=== PATIENT | male | born 1990 | race Caucasian/White ===

== ENCOUNTER 2019-07-19 11:53 | Inpatient (IN) | payer OTHER, SELFPAY ==
[2019-07-19] VITALS (8 sets, daily range): BP systolic 102–125; BP diastolic 71–90; PULSE 90–111; RESP 16–18; TEMP 36.2–36.9; O2SAT 96–100; BMI 27.2
--- NOTE | 2019-07-19 12:40 | DI.RAD.S_ITS ---
PROCEDURE: XR CHEST 2V INDICATIONS: dyspnea, abd pain, hx of pancreatitis TECHNIQUE: 2 views of the chest were acquired. COMPARISON: None. FINDINGS: Surgical changes and devices: None. Lungs and pleura: There is trace blunting of the posterior costophrenic angles. No pneumothorax is seen. No parenchymal focal infiltrates are seen. Mediastinum: Mediastinal contours are normal. Heart size is moderately enlarged. Bones and chest wall: No suspicious bony abnormalities. Soft tissues appear unremarkable. IMPRESSION: Moderate cardiomegaly. Trace blunting of the costophrenic angles is seen, which is attributed to trace pleural effusions. Dictated by: Orlando Dale M.D. on 07/19/2019 at 12:00 Approved by: Orlando Dale M.D. on 07/19/2019 at 12:01
[2019-07-19 12:47] LABS: Add Manual Diff / Slide Review NO; Basophils Absolute Auto 0 /uL (0-100); Basophils Percent Auto 0.4 % (0-2); Eosinophils Absolute Auto 200 /uL (0-450); Eosinophils Percent Auto 2.4 % (2-4); Hematocrit 45.8 % (41-53); Hemoglobin 15.4 g/dL (13.5-17.5); Lymphocytes Absolute Auto 1800 /uL (1100-4500); Lymphocytes Percent Auto 20.6 % (25-40); Mean Corpuscular HGB Conc 33.6 % (30-36); Mean Corpuscular Hemoglobin 30.1 PG (26-34); Mean Corpuscular Volume 89.6 fL (80-100); Monocytes Absolute Auto 500 /uL (0-900); Monocytes Percent Auto 5.3 % (3-14); Neutrophils Absolute Auto 6400 /uL (1500-7000); Neutrophils Percent Auto 71.3 % (50-75); Platelet Count 325 X10^3/uL (150-400); Red Blood Cell Count 5.11 X10^6/uL (4.5-5.9); White Blood Cell Count 8.9 X10^3/uL (4.5-11.0)
[2019-07-19 12:52] LABS: Creatine Kinase 99 U/L (55-170)
[2019-07-19] MEDS: SODIUM CHLORIDE 0.9% 1,000 ML 150 ML IV (12:52)
[2019-07-19 12:53] LABS: Alanine Aminotransferase 412 IU/L (<50); Albumin 3.4 g/dL (3.5-5.0); Albumin Globulin Ratio 1.1 (1.0-2.8); Alkaline Phosphatase 87 U/L (38-126); Aspartate Aminotransferase 133 IU/L (17-59); BUN Creatinine Ratio 19.8 (6-22); Blood Urea Nitrogen 21 mg/dL (9-20); Calcium 8.6 mg/dL (8.4-10.2); Carbon Dioxide 22 mmol/L (22-32); Chloride 104 mmol/L (98-107); Estimated Glomerular Filt Rate > 60.0 mL/min (>60); Globulin 3.1 g/dL (1.7-4.1); Glucose 128 mg/dL (70-100); HEMOLYSIS 15 (0-50); Lipase 334 U/L (23-300); Potassium 4.1 mmol/L (3.4-5.1); Sodium 136 mmol/L (137-145); Total Protein 6.5 g/dL (6.3-8.2)
[2019-07-19 13:02] LABS: NT-proBNP (BNP-Adult 18+) 10900 pg/mL (<125)
[2019-07-19 13:05] LABS: Troponin I < 0.012 ng/mL (0.01-0.034)
--- NOTE | 2019-07-19 13:38 | DI.CT.S_ITS ---
PROCEDURE: CT ABDOMEN PELVIS W CON INDICATIONS: abd pain, dx of pancreatitis 2 wks ago, pain not resolved TECHNIQUE: After the administration of intravenous contrast, 5 mm thick sections acquired from the diaphragm to the symphysis. 5 mm coronal and sagittal reformats were acquired. For radiation dose reduction, the following was used: automated exposure control, adjustment of mA and/or kV according to patient size. COMPARISON: None. FINDINGS: Image quality: Excellent. ABDOMEN: Lung bases: Groundglass opacity with rounded contours and periphery of the left lung base. Heart is enlarged with left ventricular dilatation. Solid organs: Liver has nodular margins suggesting hepatic cirrhosis.. Gallbladder is contracted. Pericholecystic fluid noted. Biliary system is non dilated. Pancreas enhances normally. Spleen is normal in size and enhancement. No adrenal nodules. Kidneys demonstrate normal size and enhancement, without hydronephrosis. Right renal cyst noted. Peritoneum and bowel: Bowel loops demonstrate normal wall thickness and caliber. Scattered colonic diverticuli without evidence of diverticulitis. Moderate amount of scattered free fluid noted in the abdomen and pelvis. No free air. The appendix is normal. Nodes and vessels: No retroperitoneal or mesenteric adenopathy by size criteria. Aorta and inferior vena cava are normal in size. Miscellaneous: No ventral hernias. PELVIS: Genitourinary: Bladder wall thickness is normal. Miscellaneous: No inguinal adenopathy. Small bilateral fat containing or hernias. Bones: No suspicious bony lesions. No vertebral body compression fractures. IMPRESSION: 1. Liver is nodular margins suggesting hepatic cirrhosis. Please correlate with clinical laboratory data. 2. Pancreas enhances normally. 3. Moderate amount of ascites in the abdomen or pelvis. 4. Cardiomegaly with left ventricular dilatation. 5. Groundglass opacity with rounded contour in the periphery of the right lung base concerning for atypical pneumonia including COVID-19 pneumonia. Dictated by: Maribeth Petersen MD, PhD on 07/19/2019 at 14:51 Approved by: Maribeth Petersen MD, PhD on 07/19/2019 at 14:56
--- NOTE | 2019-07-19 14:40 | ED_ITS ---
HPI - Abdominal Pain <RASHAD Vincent - Last Filed: 07/19/19 18:06> General Chief Complaint: Abdominal Pain Stated Complaint: Pancreatitis x2 weeks Time Seen by Provider: 07/19/19 12:09 Source: patient Mode of arrival: Ambulatory Limitations: no limitations History of Present Illness HPI narrative: This is a 29-year-old male, smoker, who presents to ED with his mother with chief complain of upper mid abdominal discomfort and nausea for last couple of weeks. Patient reports pain is worse when he takes deep breaths. Patient was evaluated at [facility] on 07/01/19 and was diagnosed with pancreatitis and discharged to home with Percocet and clear liquid diet and advised to stop drinking alcohol. Patient has been taking total Percocet 3 tabs in 24 hour period and last dose was taken on this past Saturday. Patient reports onset of abdominal pain 2 weeks ago and reports has been drinking heavily with average 12 packs of beer and water and 1/2 bottle of 5th every other week for last 2-3 years. Patient states he has stopped drinking about 2 weeks ago. Patient also has history of hypertension and was taking amlodipine which he has stopped in March. States he was not aware that he supposed to continue with this medication. Patient reports recently he noticed swelling his ankle and feet bilaterally. Patient denies chest pain but reports dyspnea during exertion and at rest as well. Patient reports productive cough for last 2 weeks with a white and brown mucus. Patient denies possible exposure to Covid 19 virus. Patient was advised to follow up with international project manager and echocardiogram which he has not done yet. Patient reports he has to take deep breaths to catch breaths and feels better after 20-30 seconds. Patient has been vomiting about 2 to 3 times a day with nausea. Also reports diarrhea without blood. Patient reports chills but denies fever. Patient denies cough and has been off work and has stayed home last 2 weeks. Otherwise patient denies chronic medical problems. Related Data Home Medications Medication Instructions Recorded Confirmed No Known Home Medications 07/21/19 07/21/19 Allergies Allergy/AdvReac Type Severity Reaction Status Date / Time No Known Drug Allergies Allergy Verified 07/19/19 12:36 Review of Systems <RASHAD Vincent - Last Filed: 07/19/19 18:06> Review of Systems Narrative: General: Denies fever, (+) chills, fatigue, malaise, sweats. HEENT: Denies sinus pain, ear pain, sore throat, difficulty swallowing, dizziness. Respiratory: Denies (+) dyspnea, cough, wheezing, hemoptysis, sputum. Cardiovascular: Denies chest pain, palpitations, orthopnea, (+) edema to bilateral lower extremities. Gastrointestinal: See HPI : Denies dysuria, frequency, incontinence, hematuria, urinary retention. Musculoskeletal: Denies weakness, joint pain or bony pain. Skin: Denies rash, skin lesions, or other. Neurologic: Denies weakness, headache, numbness, change in speech, confusion, seizures, incoordination. Psychiatric: No concerning psychosocial issues. 12-point review of systems is negative except for those stated above. Patient History <RASHAD Vincent - Last Filed: 07/19/19 18:06> Surgical History No pertinent past surgical history (Acute) Social History details: Currently going through divorce number of children: 3 household members: children lives independently: Yes caregiver/support person: No occupational status: employed current occupational exposures/hazards: No Smoking Status: Current every day smoker alcohol intake: former Smoking Status: Current every day smoker alcohol intake frequency: 3 or more drinks per day Substance Use Type: does not use Exam <RASHAD Vincent - Last Filed: 07/19/19 18:06> Narrative Exam Narrative: GEN: Alert, oriented x 3, well appearing and nourished, and in no acute distress. Head: Normal cephalic, atraumatic. No scalp or temporal tenderness, palpable mass or rash. EYES: Pupils are equal, round, and reactive to light and accommodation. Extraocular muscles are intact bilaterally. There is no subconjunctival hemorrhage, exudate and sclera very mildly icteric. ENT: Hearing grossly intact. Nose without bleeding, purulent discharge or deviation. Facial sinuses nontender to palpate. Mucous membrane dry, no mucosal lesion. Throat without erythema, tonsillar hypertrophy or exudate. Uvula in midline, airway patent. Neck: Trachea in midline. No JVD, non-tender without lymphadenopathy. No masses or thyroid megaly. Supple, non-tender and no meningeal signs. CARDIAC: Normal regular rate and rhythm with murmurs. No gallops, or rubs. No chest wall tenderness. No peripheral edema, cyanosis or pallor. Capillary refill is less than 2 seconds. RESPIRATORY: Lungs are clear to auscultate bilaterally. No cough, wheezes, ral es, or rhonchi. No stridor, respiratory distress, increase work of breathing, or accessary muscle used. ABD: Abdomen soft, nontender to palpate and non-distended. No guarding or rebound tenderness to palpate. Bowel sounds are normal in all 4 quadrants. There is no palpable masses or organomegaly. EXT: Full painless ROM of all extremities with no loss of sensation, strength, effusion or edema. SKIN: Warm, dry, normal color for patient. No erythema, lesions or rash over visible areas. BACK: Nontender without deformity or crepitance. No flank tenderness. NEUROLOGICAL: Alert and oriented to place, time and person. Sensation and motor function intact bilaterally. No facial droops, dysphasia. PSYCHIATRIC: Good judgement and reason, without hallucinations, abnormal affect or abnormal behaviors during the examination. Patient is not suicidal. Initial Vital Signs Initial Vital Signs: Vital Signs Temperature 98.5 F 07/19/19 11:55 Pulse Rate 97 H 07/19/19 11:55 Respiratory Rate 16 07/19/19 11:55 Blood Pressure 125/90 07/19/19 11:55 Pulse Oximetry 100 07/19/19 11:55 <Luis Reddy MD - Last Filed: 07/22/19 07:46> Initial Vital Signs Initial Vital Signs: Vital Signs Temperature 98.5 F 07/19/19 11:55 Pulse Rate 97 H 07/19/19 11:55 Respiratory Rate 16 07/19/19 11:55 Blood Pressure 125/90 07/19/19 11:55 Pulse Oximetry 100 07/19/19 11:55 Scores <RASHAD Vincent - Last Filed: 07/19/19 18:06> GCS Belcher coma scale eye opening: Spontaneous Belcher coma scale verbal response: Orientated Estevan coma scale motor response: Obey commands Estevan coma scale total score: 15 Course <RASHAD Vincent - Last Filed: 07/19/19 18:06> Orders Ordered: Acetaminophen (Tylenol) 650 mg PO Q6HR PRN PRN Reason: Fever/Mild Pain (1-3) Digoxin (Lanoxin) 0.125 mg PO DAILY@1700 [facility] Digoxin (Lanoxin) 0.25 mg PO Q6HR [facility] Stop: 07/24/19 17:00 Last Admin: 07/22/19 05:43 Dose: 0.25 mg Documented by: Admin: 07/22/19 00:38 Dose: 0.25 mg Documented by: Admin: 07/21/19 17:43 Dose: Not Given Documented by: Admin: 07/21/19 17:28 Dose: Not Given Documented by: FARHAN Docusate Sodium (Colace) 200 mg PO BID [facility] Last Admin: 07/21/19 20:33 Dose: 200 mg Documented by: Admin: 07/21/19 13:37 Dose: 200 mg Documented by: MAGALYS Enoxaparin Sodium (Lovenox) 40 mg SUBCUT DAILY [facility] Last Admin: 07/21/19 08:34 Dose: 40 mg Documented by: Admin: 07/20/19 09:10 Dose: 40 mg Documented by: MAGALYS Furosemide (Lasix) 60 mg IV Q12H [facility] Last Admin: 07/22/19 05:43 Dose: 60 mg Documented by: Admin: 07/21/19 16:43 Dose: 60 mg Documented by: FARHAN Lisinopril (Zestril) 2.5 mg PO DAILY [facility] Last Admin: 07/21/19 08:33 Dose: 2.5 mg Documented by: Admin: 07/20/19 13:02 Dose: 2.5 mg Documented by: MAGALYS Morphine Sulfate (Morphine) 2 mg IV Q4HR PRN PRN Reason: Pain, Severe (7-10) Last Admin: 07/20/19 06:16 Dose: 2 mg Documented by: Admin: 07/20/19 00:00 Dose: 2 mg Documented by: FEI Naloxone HCl (Narcan) 0.2 mg IV Q2MIN PRN PRN Reason: Opiate Reversal Ondansetron HCl (Zofran) 4 mg IV Q8HR PRN PRN Reason: Nausea And Vomiting Last Admin: 07/20/19 16:50 Dose: 4 mg Documented by: FARHAN Oxycodone HCl (Percolone) 5 mg PO Q4HR PRN PRN Reason: Pain, Moderate (4-6) Last Admin: 07/22/19 05:44 Dose: 5 mg Documented by: Admin: 07/21/19 20:33 Dose: 5 mg Documented by: Admin: 07/21/19 16:42 Dose: 5 mg Documented by: Admin: 07/21/19 11:59 Dose: 5 mg Documented by: Admin: 07/21/19 06:43 Dose: 5 mg Documented by: Admin: 07/21/19 00:50 Dose: 5 mg Documented by: Admin: 07/20/19 20:35 Dose: 5 mg Documented by: Admin: 07/20/19 16:50 Dose: 5 mg Documented by: Admin: 07/20/19 12:18 Dose: 5 mg Documented by: Admin: 07/20/19 09:15 Dose: 5 mg Documented by: MAGALYS Spironolactone (Aldactone) 12.5 mg PO DAILY [facility] Discontinued Medications Digoxin (Lanoxin) 0.25 mg PO DAILY@1700 [facility] Stop: 07/24/19 17:00 Last Admin: 07/21/19 16:41 Dose: 0.25 mg Documented by: FARHAN Furosemide (Lasix) 40 mg IV NOW ONE Stop: 07/19/19 17:10 Last Admin: 07/19/19 17:33 Dose: 40 mg Documented by: CHARLOTTE Furosemide (Lasix) 40 mg PO DAILY [facility] Last Admin: 07/20/19 09:10 Dose: 40 mg Documented by: MAGALYS Furosemide (Lasix) 40 mg IV Q12HR [facility] Furosemide (Lasix) 40 mg IV NOW ONE Stop: 07/20/19 12:25 Last Admin: 07/20/19 13:03 Dose: 40 mg Documented by: MAGALYS Furosemide (Lasix) 40 mg IV 0900,2100 [facility] Last Admin: 07/21/19 09:30 Dose: 40 mg Documented by: MAGALYS Furosemide (Lasix) 20 mg IV NOW ONE Stop: 07/21/19 13:12 Last Admin: 07/21/19 13:37 Dose: 20 mg Documented by: MAGALYS Furosemide (Lasix) 60 mg IV Q8H [facility] Last Admin: 07/21/19 13:34 Dose: Not Given Documented by: MAGALYS Sodium Chloride (Normal Saline 0.9%) 1,000 mls @ 150 mls/hr IV CONT [facility] Last Infusion: 07/19/19 18:34 Dose: 0 mls/hr Documented by: MARIA TERESA Infusion: 07/19/19 15:43 Dose: 150 mls/hr Documented by: Admin: 07/19/19 12:52 Dose: 150 mls/hr Documented by: MICHELLE Sodium Chloride (Normal Saline 0.9%) 1,000 mls @ 100 mls/hr IV CONT [facility] Last Admin: 07/19/19 15:43 Dose: Not Given Documented by: CHARLOTTE Morphine Sulfate (Morphine) 4 mg IV Q4HR PRN PRN Reason: Pain, Severe (7-10) Last Admin: 07/19/19 19:45 Dose: 1 mg Documented by: MARIA TERESA Morphine Sulfate (Morphine) 1 mg IV Q4HR PRN PRN Reason: Pain, Moderate (4-6) Ondansetron HCl (Zofran) 4 mg IV NOW ONE Stop: 07/19/19 12:41 Last Admin: 07/19/19 12:58 Dose: Not Given Documented by: MICHELLE Spironolactone (Aldactone) 50 mg PO DAILY [facility] Last Admin: 07/20/19 09:13 Dose: 50 mg Documented by: MAGALYS Vital Signs Vital signs: Vital Signs - 8 hr 07/19/19 11:55 07/19/19 13:55 07/19/19 15:43 Temperature 98.5 F Pulse Rate 97 H 111 H 96 H Respiratory Rate 16 18 18 Blood Pressure 125/90 Blood Pressure [Right Arm] 111/82 Pulse Oximetry 100 96 97 <Luis Reddy MD - Last Filed: 07/22/19 07:46> Orders Ordered: Acetaminophen (Tylenol) 650 mg PO Q6HR PRN PRN Reason: Fever/Mild Pain (1-3) Digoxin (Lanoxin) 0.125 mg PO DAILY@1700 [facility] Digoxin (Lanoxin) 0.25 mg PO Q6HR [facility] Stop: 07/24/19 17:00 Last Admin: 07/22/19 05:43 Dose: 0.25 mg Documented by: Admin: 07/22/19 00:38 Dose: 0.25 mg Documented by: Admin: 07/21/19 17:43 Dose: Not Given Documented by: Admin: 07/21/19 17:28 Dose: Not Given Documented by: FARHAN Docusate Sodium (Colace) 200 mg PO BID [facility] Last Admin: 07/21/19 20:33 Dose: 200 mg Documented by: Admin: 07/21/19 13:37 Dose: 200 mg Documented by: MAGALYS Enoxaparin Sodium (Lovenox) 40 mg SUBCUT DAILY [facility] Last Admin: 07/21/19 08:34 Dose: 40 mg Documented by: Admin: 07/20/19 09:10 Dose: 40 mg Documented by: MAGALYS Furosemide (Lasix) 60 mg IV Q12H [facility] Last Admin: 07/22/19 05:43 Dose: 60 mg Documented by: Admin: 07/21/19 16:43 Dose: 60 mg Documented by: FARHAN Lisinopril (Zestril) 2.5 mg PO DAILY [facility] Last Admin: 07/21/19 08:33 Dose: 2.5 mg Documented by: Admin: 07/20/19 13:02 Dose: 2.5 mg Documented by: MAGALYS Morphine Sulfate (Morphine) 2 mg IV Q4HR PRN PRN Reason: Pain, Severe (7-10) Last Admin: 07/20/19 06:16 Dose: 2 mg Documented by: Admin: 07/20/19 00:00 Dose: 2 mg Documented by: FEI Naloxone HCl (Narcan) 0.2 mg IV Q2MIN PRN PRN Reason: Opiate Reversal Ondansetron HCl (Zofran) 4 mg IV Q8HR PRN PRN Reason: Nausea And Vomiting Last Admin: 07/20/19 16:50 Dose: 4 mg Documented by: FARHAN Oxycodone HCl (Percolone) 5 mg PO Q4HR PRN PRN Reason: Pain, Moderate (4-6) Last Admin: 07/22/19 05:44 Dose: 5 mg Documented by: Admin: 07/21/19 20:33 Dose: 5 mg Documented by: Admin: 07/21/19 16:42 Dose: 5 mg Documented by: Admin: 07/21/19 11:59 Dose: 5 mg Documented by: Admin: 07/21/19 06:43 Dose: 5 mg Documented by: Admin: 07/21/19 00:50 Dose: 5 mg Documented by: Admin: 07/20/19 20:35 Dose: 5 mg Documented by: Admin: 07/20/19 16:50 Dose: 5 mg Documented by: Admin: 07/20/19 12:18 Dose: 5 mg Documented by: Admin: 07/20/19 09:15 Dose: 5 mg Documented by: MAGALYS Spironolactone (Aldactone) 12.5 mg PO DAILY [facility] Discontinued Medications Digoxin (Lanoxin) 0.25 mg PO DAILY@1700 [facility] Stop: 07/24/19 17:00 Last Admin: 07/21/19 16:41 Dose: 0.25 mg Documented by: FARHAN Furosemide (Lasix) 40 mg IV NOW ONE Stop: 07/19/19 17:10 Last Admin: 07/19/19 17:33 Dose: 40 mg Documented by: CHARLOTTE Furosemide (Lasix) 40 mg PO DAILY [facility] Last Admin: 07/20/19 09:10 Dose: 40 mg Documented by: MAGALYS Furosemide (Lasix) 40 mg IV Q12HR [facility] Furosemide (Lasix) 40 mg IV NOW ONE Stop: 07/20/19 12:25 Last Admin: 07/20/19 13:03 Dose: 40 mg Documented by: MAGALYS Furosemide (Lasix) 40 mg IV 0900,2100 [facility] Last Admin: 07/21/19 09:30 Dose: 40 mg Documented by: MAGALYS Furosemide (Lasix) 20 mg IV NOW ONE Stop: 07/21/19 13:12 Last Admin: 07/21/19 13:37 Dose: 20 mg Documented by: MAGALYS Furosemide (Lasix) 60 mg IV Q8H [facility] Last Admin: 07/21/19 13:34 Dose: Not Given Documented by: MAGALYS Sodium Chloride (Normal Saline 0.9%) 1,000 mls @ 150 mls/hr IV CONT [facility] Last Infusion: 07/19/19 18:34 Dose: 0 mls/hr Documented by: MARIA TERESA Infusion: 07/19/19 15:43 Dose: 150 mls/hr Documented by: Admin: 07/19/19 12:52 Dose: 150 mls/hr Documented by: MICHELLE Sodium Chloride (Normal Saline 0.9%) 1,000 mls @ 100 mls/hr IV CONT [facility] Last Admin: 07/19/19 15:43 Dose: Not Given Documented by: CHARLOTTE Morphine Sulfate (Morphine) 4 mg IV Q4HR PRN PRN Reason: Pain, Severe (7-10) Last Admin: 07/19/19 19:45 Dose: 1 mg Documented by: MARIA TERESA Morphine Sulfate (Morphine) 1 mg IV Q4HR PRN PRN Reason: Pain, Moderate (4-6) Ondansetron HCl (Zofran) 4 mg IV NOW ONE Stop: 07/19/19 12:41 Last Admin: 07/19/19 12:58 Dose: Not Given Documented by: MICHELLE Spironolactone (Aldactone) 50 mg PO DAILY [facility] Last Admin: 07/20/19 09:13 Dose: 50 mg Documented by: YROSMERY Vital Signs Vital signs: Vital Signs - 8 hr 07/19/19 11:55 07/19/19 13:55 07/19/19 15:43 Temperature 98.5 F Pulse Rate 97 H 111 H 96 H Respiratory Rate 16 18 18 Blood Pressure 125/90 Blood Pressure [Right Arm] 111/82 Pulse Oximetry 100 96 97 MDM - Abdominal Pain <RASHAD Vincent - Last Filed: 07/19/19 18:06> Differential Diagnosis Differential diagnosis: Likely abdominal pain, pancreatitis and other (acute liver failure, pneumonia, CHF, cardiomegaly) Medical Records Attestation: I reviewed the patient's medical records. Lab Data Attestation: I reviewed the patient's lab results. Result diagrams: 07/22/19 05:10 07/22/19 05:10 Labs: Lab Results 07/19/19 07/19/19 07/19/19 Range/Units 12:30 12:30 12:30 WBC 8.9 (4.5-11.0) X10^3/uL RBC 5.11 (4.5-5.9) X10^6/uL Hgb 15.4 (13.5-17.5) g/dL Hct 45.8 (41-53) % MCV 89.6 (80-100) fL MCH 30.1 (26-34) PG MCHC 33.6 (30-36) % RDW 15.0 H (11.6-14.8) % Plt Count 325 (150-400) X10^3/uL Neut % (Auto) 71.3 (50-75) % Lymph % (Auto) 20.6 L (25-40) % Potter % (Auto) 5.3 (3-14) % Eos % (Auto) 2.4 (2-4) % Baso % (Auto) 0.4 (0-2) % Neut # (Auto) 6400 (8693-1170) /uL Lymph # (Auto) 1800 (5506-1015) /uL Potter # (Auto) 500 (0-900) /uL Eos # (Auto) 200 (0-450) /uL Baso # (Auto) 0 (0-100) /uL ESR (0-15) MM/HR PT (10.1-12.7) SECONDS INR (0.9-1.3) APTT (26.4-36.2) SECONDS D-Dimer (<230) ng/mL Sodium 136 L (137-145) mmol/L Potassium 4.1 (3.4-5.1) mmol/L Chloride 104 (98-107) mmol/L Carbon Dioxide 22 (22-32) mmol/L BUN 21 H (9-20) mg/dL Creatinine 1.06 (0.66-1.25) mg/dL Estimated GFR > 60.0 (>60) mL/min BUN/Creatinine Ratio 19.8 (6-22) Glucose 128 H (70-100) mg/dL Lactate (0.7-2.1) mmol/L Calcium 8.6 (8.4-10.2) mg/dL Ferritin (18-464) ng/mL Total Bilirubin 3.0 H (0.2-1.3) mg/dL AST 133 H (17-59) IU/L ALT 412 H (<50) IU/L Alkaline Phosphatase 87 (38-126) U/L Lactate Dehydrogenase (313-618) U/L Total Creatine Kinase 99 (55-170) U/L CK-MB (CK-2) TNP CK-MB (CK-2) Rel Index TNP Troponin I < 0.012 (0.01-0.034) ng/mL C-Reactive Protein (<1.0) mg/dL NT-Pro-B Natriuret Pep (<125) pg/mL Total Protein 6.5 (6.3-8.2) g/dL Albumin 3.4 L (3.5-5.0) g/dL Globulin 3.1 (1.7-4.1) g/dL Albumin/Globulin Ratio 1.1 (1.0-2.8) Lipase 334 H (23-300) U/L Procalcitonin (<0.5) ng/mL Acetaminophen (10-30) ug/mL COVID-19 PCR (Not Detect) Hepatitis A IgM Ab (Negative) Hep Bs Antigen (Negative) Hep B Core IgM Ab (Negative) Hepatitis C Antibody (0.0-0.9) s/co ratio Hep C Ab Signal/Cutoff (.) 07/19/19 07/19/19 07/19/19 Range/Units 12:30 12:30 15:35 WBC (4.5-11.0) X10^3/uL RBC (4.5-5.9) X10^6/uL Hgb (13.5-17.5) g/dL Hct (41-53) % MCV (80-100) fL MCH (26-34) PG MCHC (30-36) % RDW (11.6-14.8) % Plt Count (150-400) X10^3/uL Neut % (Auto) (50-75) % Lymph % (Auto) (25-40) % Potter % (Auto) (3-14) % Eos % (Auto) (2-4) % Baso % (Auto) (0-2) % Neut # (Auto) (7786-7363) /uL Lymph # (Auto) (1761-0769) /uL Potter # (Auto) (0-900) /uL Eos # (Auto) (0-450) /uL Baso # (Auto) (0-100) /uL ESR 2 (0-15) MM/HR PT (10.1-12.7) SECONDS INR (0.9-1.3) APTT (26.4-36.2) SECONDS D-Dimer (<230) ng/mL Sodium (137-145) mmol/L Potassium (3.4-5.1) mmol/L Chloride (98-107) mmol/L Carbon Dioxide (22-32) mmol/L BUN (9-20) mg/dL Creatinine (0.66-1.25) mg/dL Estimated GFR (>60) mL/min BUN/Creatinine Ratio (6-22) Glucose (70-100) mg/dL Lactate (0.7-2.1) mmol/L Calcium (8.4-10.2) mg/dL Ferritin (18-464) ng/mL Total Bilirubin (0.2-1.3) mg/dL AST (17-59) IU/L ALT (<50) IU/L Alkaline Phosphatase (38-126) U/L Lactate Dehydrogenase (313-618) U/L Total Creatine Kinase (55-170) U/L CK-MB (CK-2) CK-MB (CK-2) Rel Index Troponin I (0.01-0.034) ng/mL C-Reactive Protein (<1.0) mg/dL NT-Pro-B Natriuret Pep 45458 H (<125) pg/mL Total Protein (6.3-8.2) g/dL Albumin (3.5-5.0) g/dL Globulin (1.7-4.1) g/dL Albumin/Globulin Ratio (1.0-2.8) Lipase (23-300) U/L Procalcitonin (<0.5) ng/mL Acetaminophen (10-30) ug/mL COVID-19 PCR (Not Detect) Hepatitis A IgM Ab Negative (Negative) Hep Bs Antigen Negative (Negative) Hep B Core IgM Ab Negative (Negative) Hepatitis C Antibody <0.1 (0.0-0.9) s/co ratio Hep C Ab Signal/Cutoff Comment (.) 07/19/19 07/19/19 07/19/19 Range/Units 15:35 15:35 15:35 WBC (4.5-11.0) X10^3/uL RBC (4.5-5.9) X10^6/uL Hgb (13.5-17.5) g/dL Hct (41-53) % MCV (80-100) fL MCH (26-34) PG MCHC (30-36) % RDW (11.6-14.8) % Plt Count (150-400) X10^3/uL Neut % (Auto) (50-75) % Lymph % (Auto) (25-40) % Potter % (Auto) (3-14) % Eos % (Auto) (2-4) % Baso % (Auto) (0-2) % Neut # (Auto) (1911-5675) /uL Lymph # (Auto) (1205-9251) /uL Potter # (Auto) (0-900) /uL Eos # (Auto) (0-450) /uL Baso # (Auto) (0-100) /uL ESR (0-15) MM/HR PT 17.1 H (10.1-12.7) SECONDS INR 1.5 H (0.9-1.3) APTT 30 (26.4-36.2) SECONDS D-Dimer 807 H (<230) ng/mL Sodium (137-145) mmol/L Potassium (3.4-5.1) mmol/L Chloride (98-107) mmol/L Carbon Dioxide (22-32) mmol/L BUN (9-20) mg/dL Creatinine (0.66-1.25) mg/dL Estimated GFR (>60) mL/min BUN/Creatinine Ratio (6-22) Glucose (70-100) mg/dL Lactate 1.3 (0.7-2.1) mmol/L Calcium (8.4-10.2) mg/dL Ferritin (18-464) ng/mL Total Bilirubin (0.2-1.3) mg/dL AST (17-59) IU/L ALT (<50) IU/L Alkaline Phosphatase (38-126) U/L Lactate Dehydrogenase (313-618) U/L Total Creatine Kinase (55-170) U/L CK-MB (CK-2) CK-MB (CK-2) Rel Index Troponin I (0.01-0.034) ng/mL C-Reactive Protein (<1.0) mg/dL NT-Pro-B Natriuret Pep (<125) pg/mL Total Protein (6.3-8.2) g/dL Albumin (3.5-5.0) g/dL Globulin (1.7-4.1) g/dL Albumin/Globulin Ratio (1.0-2.8) Lipase (23-300) U/L Procalcitonin 0.19 (<0.5) ng/mL Acetaminophen (10-30) ug/mL COVID-19 PCR (Not Detect) Hepatitis A IgM Ab (Negative) Hep Bs Antigen (Negative) Hep B Core IgM Ab (Negative) Hepatitis C Antibody (0.0-0.9) s/co ratio Hep C Ab Signal/Cutoff (.) 07/19/19 07/19/19 07/19/19 Range/Units 15:35 15:35 15:35 WBC (4.5-11.0) X10^3/uL RBC (4.5-5.9) X10^6/uL Hgb (13.5-17.5) g/dL Hct (41-53) % MCV (80-100) fL MCH (26-34) PG MCHC (30-36) % RDW (11.6-14.8) % Plt Count (150-400) X10^3/uL Neut % (Auto) (50-75) % Lymph % (Auto) (25-40) % Potter % (Auto) (3-14) % Eos % (Auto) (2-4) % Baso % (Auto) (0-2) % Neut # (Auto) (3198-0974) /uL Lymph # (Auto) (4248-8055) /uL Potter # (Auto) (0-900) /uL Eos # (Auto) (0-450) /uL Baso # (Auto) (0-100) /uL ESR (0-15) MM/HR PT (10.1-12.7) SECONDS INR (0.9-1.3) APTT (26.4-36.2) SECONDS D-Dimer (<230) ng/mL Sodium (137-145) mmol/L Potassium (3.4-5.1) mmol/L Chloride (98-107) mmol/L Carbon Dioxide (22-32) mmol/L BUN (9-20) mg/dL Creatinine (0.66-1.25) mg/dL Estimated GFR (>60) mL/min BUN/Creatinine Ratio (6-22) Glucose (70-100) mg/dL Lactate (0.7-2.1) mmol/L Calcium (8.4-10.2) mg/dL Ferritin 93 (18-464) ng/mL Total Bilirubin (0.2-1.3) mg/dL AST (17-59) IU/L ALT (<50) IU/L Alkaline Phosphatase (38-126) U/L Lactate Dehydrogenase 633 H (313-618) U/L Total Creatine Kinase (55-170) U/L CK-MB (CK-2) CK-MB (CK-2) Rel Index Troponin I (0.01-0.034) ng/mL C-Reactive Protein 4.9 H (<1.0) mg/dL NT-Pro-B Natriuret Pep (<125) pg/mL Total Protein (6.3-8.2) g/dL Albumin (3.5-5.0) g/dL Globulin (1.7-4.1) g/dL Albumin/Globulin Ratio (1.0-2.8) Lipase (23-300) U/L Procalcitonin (<0.5) ng/mL Acetaminophen < 10 L (10-30) ug/mL COVID-19 PCR Not detected (Not Detect) Hepatitis A IgM Ab (Negative) Hep Bs Antigen (Negative) Hep B Core IgM Ab (Negative) Hepatitis C Antibody (0.0-0.9) s/co ratio Hep C Ab Signal/Cutoff (.) Imaging Data Chest x-ray: Radiologist's Impression: [address] [address] XRay Report Signed Patient: Kirk Cotton [facility]#: [id number] : 1990Acct:[id number] Age/Sex: te of Service: 07[birth year]19[birth year] Loc: ED Accession Number: [id number] Procedure: XR chest 2V Ordering Provider: Wali Daniel PROCEDURE: XR CHEST 2V INDICATIONS: dyspnea, abd pain, hx of pancreatitis TECHNIQUE: 2 views of the chest were acquired. COMPARISON: None. FINDINGS: Surgical changes and devices: None. Lungs and pleura: There is trace blunting of the posterior costophrenic angles. No pneumothorax is seen. No parenchymal focal infiltrates are seen. Mediastinum: Mediastinal contours are normal. Heart size is moderately enlarged. Bones and chest wall: No suspicious bony abnormalities. Soft tissues appear unremarkable. IMPRESSION: Moderate cardiomegaly. Trace blunting of the costophrenic angles is seen, which is attributed to trace pleural effusions. Dictated by: Orlando Dale M.D. on 07/19/2019 at 12:00 Approved by: Orlando Dale M.D. on 07/19/2019 at 12:01 CT scan - abdomen/pelvis: Radiologist's Impression: [address] [address] [address] Scan Report Signed Patient: Kirk Cotton [facility]#: [id number] : 1990Acct:[id number] Age/Sex: te of Service: 07/19/19 Loc: ED Accession Number: [id number] Procedure: CT abdomen pelvis w con Ordering Provider: Wali Daniel PROCEDURE: CT ABDOMEN PELVIS W CON INDICATIONS: abd pain, dx of pancreatitis 2 wks ago, pain not resolved TECHNIQUE: After the administration of intravenous contrast, 5 mm thick sections acquired from the diaphragm to the symphysis. 5 mm coronal and sagittal reformats were acquired. For radiation dose reduction, the following was used: automated exposure control, adjustment of mA and/or kV according to patient size. COMPARISON: None. FINDINGS: Image quality: Excellent. ABDOMEN: Lung bases: Groundglass opacity with rounded contours and periphery of the left lung base. Heart is enlarged with left ventricular dilatation. Solid organs: Liver has nodular margins suggesting hepatic cirrhosis.. Gallbladder is contracted. Pericholecystic fluid noted. Biliary system is non dilated. Pancr eas enhances normally. Spleen is normal in size and enhancement. No adrenal nodules. Kidneys demonstrate normal size and enhancement, without hydronephrosis. Right renal cyst noted. Peritoneum and bowel: Bowel loops demonstrate normal wall thickness and caliber. Scattered colonic diverticuli without evidence of diverticulitis. Moderate amount of scattered free fluid noted in the abdomen and pelvis. No free air. The appendix is normal. Nodes and vessels: No retroperitoneal or mesenteric adenopathy by size criteria. Aorta and inferior vena cava are normal in size. Miscellaneous: No ventral hernias. PELVIS: Genitourinary: Bladder wall thickness is normal. Miscellaneous: No inguinal adenopathy. Small bilateral fat containing or hernias. Bones: No suspicious bony lesions. No vertebral body compression fractures. IMPRESSION: 1. Liver is nodular margins suggesting hepatic cirrhosis. Please correlate with clinical laboratory data. 2. Pancreas enhances normally. 3. Moderate amount of ascites in the abdomen or pelvis. 4. Cardiomegaly with left ventricular dilatation. 5. Groundglass opacity with rounded contour in the periphery of the right lung base concerning for atypical pneumonia including COVID-19 pneumonia. Dictated by: Maribeth Petersen MD, PhD on 07/19/2019 at 14:51 Approved by: Maribeth Petersen MD, PhD on 07/19/2019 at 14:56 ECG Data Attestation: I personally reviewed and interpreted this ECG as follows: Prior ECG tracings: not available for review Interpretation: Sinus rhythm with left bundle branch block rate at 95. WI interval 175, QRS duration 207, QT/QTC 446/499 Q/S in V1 and V2, R in I/aVL, V5, V6. No acute ST changes Abnormal EKG MDM Narrative Medical decision making narrative: This is a 29-year-old male who presents to ED with his mother with chief complain of upper abdominal discomfort and nausea/vomiting for over 2 weeks. Patient was evaluated in [facility] 2 weeks ago and discharged to home with diagnosis of pancreatitis. Patient reports he has been drinking heavily last 2-3 years alternating weekly consisting 12 packs of beer with half bottle of 5th hard liquor. Patient denies drinking alcohol at least 2 weeks plus due to abdominal discomfort. He was also noted cardiomegaly at that time and was advised to follow up with echocardiogram which has not been done. Patient reports last several days he has been having increasing short of breath continuously even without exertion. Also, he reports swelling to his bilateral lower legs. Abdomen is mildly tender to palpate in up per abdomen. No active vomiting noted. EKG shows left bundle branch block rate in 95 and previous EKG is not available. Chest x-ray shows moderate cardiomegaly with trace pleural effusion. CT of abdomen and pelvis indicates ground-glass opacity with rounded control for in periphery of lung bases with enlarged left ventricular dilation and concerns for atypical pneumonia verses Covid 19 pneumonia. Liver shows nodular margins suggesting hepatic cirrhosis recommending correlate with clinical laboratory data. Gallbladder is contracted with nondilated biliary system. Pancreas was enhance normally. There is nadia cholecystic fluid with moderate amount of ascites. Old record from [facility] was obtained with normal white count, normal liver function test with mildly total bilirubin of 2.1 and mild dehydration of BUN of 22, creatinine of 1.4 and normal lipase test of 38. Today's lab test shows increased total bilirubin of 3.0 with AST of 133, ALT of 412, alkaline phosphatase of 87, albumin of 3.4 and lipase of 334. Patient had normal platelet level of 325 with INR of 1.5. No leukocytosis with WBC of 8.9. CRP was elevated to 4.9, ESR was normal of 2. Lactate and procalcitonin level was normal. Serum glucose was 128. Negative troponin test. ProBNP was 10,900. Tylenol level was negative. Hepatitis panel is pending. Napoles virus swab is pending. Due to patient's CT scan concerns for ground-glass opacity additional labs were added for LDH, D-dimer, ferritin, coagulation. D-dimers is elevated to 807, INR is 1.5, PT is 17.1. Normal ferritin level 93. Lymphocyte is mildly decreased to 20.6. Patient was administered 40 mg IV Lasix for cardiomegaly elevated proBNP. Prior this lab was available, patient received about 500 mL of normal saline infusion. Patient's O2 sat was greater than 97% in room air. Patient's lung sounds are clear to auscultate. Patient did not have pitting edema in lower extremities. Consulted Dr. Michele for admission and was suggested contact GI specialist for possible transfer. [place] [facility] specialist, Dr. Carrillo, suggested to consid er to transfer [facility] her they have marketing representative and liver transplant capability if it is needed. Spoke with at [facility], [facility], and recommended overnight admission for observation with IV hydration, repeat lab test including liver function test, coag test and patient is not require to be transferred at this time since he has not required for acute procedures. Dr. Balderas is not convinced patient has acute hepatic failure and his symptoms, lab tests are due to all related pancreatitis. Spoke with Dr. Michele again and he kindly accepted patient's care with the recommendation. He suggested patient's condition gets worse need further consult, feel free to contact [facility] tomorrow. New finding of cardiomegaly and elevated BNP may related alcohol related and further evaluation is required such as echocardiogram and a referral to international project manager. Patient has not been taking amlodipine since March 2019. Patient blood pressure is in normotensive in the ED. <Luis Reddy MD - Last Filed: 07/22/19 07:46> Lab Data Labs: Lab Results 07/19/19 07/19/19 07/19/19 Range/Units 12:30 12:30 12:30 WBC 8.9 (4.5-11.0) X10^3/uL RBC 5.11 (4.5-5.9) X10^6/uL Hgb 15.4 (13.5-17.5) g/dL Hct 45.8 (41-53) % MCV 89.6 (80-100) fL MCH 30.1 (26-34) PG MCHC 33.6 (30-36) % RDW 15.0 H (11.6-14.8) % Plt Count 325 (150-400) X10^3/uL Neut % (Auto) 71.3 (50-75) % Lymph % (Auto) 20.6 L (25-40) % Potter % (Auto) 5.3 (3-14) % Eos % (Auto) 2.4 (2-4) % Baso % (Auto) 0.4 (0-2) % Neut # (Auto) 6400 (1913-8391) /uL Lymph # (Auto) 1800 (6776-5666) /uL Potter # (Auto) 500 (0-900) /uL Eos # (Auto) 200 (0-450) /uL Baso # (Auto) 0 (0-100) /uL ESR (0-15) MM/HR PT (10.1-12.7) SECONDS INR (0.9-1.3) APTT (26.4-36.2) SECONDS D-Dimer (<230) ng/mL Sodium 136 L (137-145) mmol/L Potassium 4.1 (3.4-5.1) mmol/L Chloride 104 (98-107) mmol/L Carbon Dioxide 22 (22-32) mmol/L BUN 21 H (9-20) mg/dL Creatinine 1.06 (0.66-1.25) mg/dL Estimated GFR > 60.0 (>60) mL/min BUN/Creatinine Ratio 19.8 (6-22) Glucose 128 H (70-100) mg/dL Lactate (0.7-2.1) mmol/L Calcium 8.6 (8.4-10.2) mg/dL Ferritin (18-464) ng/mL Total Bilirubin 3.0 H (0.2-1.3) mg/dL AST 133 H (17-59) IU/L ALT 412 H (<50) IU/L Alkaline Phosphatase 87 (38-126) U/L Lactate Dehydrogenase (313-618) U/L Total Creatine Kinase 99 (55-170) U/L CK-MB (CK-2) TNP CK-MB (CK-2) Rel Index TNP Troponin I < 0.012 (0.01-0.034) ng/mL C-Reactive Protein (<1.0) mg/dL NT-Pro-B Natriuret Pep (<125) pg/mL Total Protein 6.5 (6.3-8.2) g/dL Albumin 3.4 L (3.5-5.0) g/dL Globulin 3.1 (1.7-4.1) g/dL Albumin/Globulin Ratio 1.1 (1.0-2.8) Lipase 334 H (23-300) U/L Procalcitonin (<0.5) ng/mL Acetaminophen (10-30) ug/mL COVID-19 PCR (Not Detect) Hepatitis A IgM Ab (Negative) Hep Bs Antigen (Negative) Hep B Core IgM Ab (Negative) Hepatitis C Antibody (0.0-0.9) s/co ratio Hep C Ab Signal/Cutoff (.) 07/19/19 07/19/19 07/19/19 Range/Units 12:30 12:30 15:35 WBC (4.5-11.0) X10^3/uL RBC (4.5-5.9) X10^6/uL Hgb (13.5-17.5) g/dL Hct (41-53) % MCV (80-100) fL MCH (26-34) PG MCHC (30-36) % RDW (11.6-14.8) % Plt Count (150-400) X10^3/uL Neut % (Auto) (50-75) % Lymph % (Auto) (25-40) % Potter % (Auto) (3-14) % Eos % (Auto) (2-4) % Baso % (Auto) (0-2) % Neut # (Auto) (7484-5592) /uL Lymph # (Auto) (4413-2969) /uL Potter # (Auto) (0-900) /uL Eos # (Auto) (0-450) /uL Baso # (Auto) (0-100) /uL ESR 2 (0-15) MM/HR PT (10.1-12.7) SECONDS INR (0.9-1.3) APTT (26.4-36.2) SECONDS D-Dimer (<230) ng/mL Sodium (137-145) mmol/L Potassium (3.4-5.1) mmol/L Chloride (98-107) mmol/L Carbon Dioxide (22-32) mmol/L BUN (9-20) mg/dL Creatinine (0.66-1.25) mg/dL Estimated GFR (>60) mL/min BUN/Creatinine Ratio (6-22) Glucose (70-100) mg/dL Lactate (0.7-2.1) mmol/L Calcium (8.4-10.2) mg/dL Ferritin (18-464) ng/mL Total Bilirubin (0.2-1.3) mg/dL AST (17-59) IU/L ALT (<50) IU/L Alkaline Phosphatase (38-126) U/L Lactate Dehydrogenase (313-618) U/L Total Creatine Kinase (55-170) U/L CK-MB (CK-2) CK-MB (CK-2) Rel Index Troponin I (0.01-0.034) ng/mL C-Reactive Protein (<1.0) mg/dL NT-Pro-B Natriuret Pep 89918 H (<125) pg/mL Total Protein (6.3-8.2) g/dL Albumin (3.5-5.0) g/dL Globulin (1.7-4.1) g/dL Albumin/Globulin Ratio (1.0-2.8) Lipase (23-300) U/L Procalcitonin (<0.5) ng/mL Acetaminophen (10-30) ug/mL COVID-19 PCR (Not Detect) Hepatitis A IgM Ab Negative (Negative) Hep Bs Antigen Negative (Negative) Hep B Core IgM Ab Negative (Negative) Hepatitis C Antibody <0.1 (0.0-0.9) s/co ratio Hep C Ab Signal/Cutoff Comment (.) 07/19/19 07/19/19 07/19/19 Range/Units 15:35 15:35 15:35 WBC (4.5-11.0) X10^3/uL RBC (4.5-5.9) X10^6/uL Hgb (13.5-17.5) g/dL Hct (41-53) % MCV (80-100) fL MCH (26-34) PG MCHC (30-36) % RDW (11.6-14.8) % Plt Count (150-400) X10^3/uL Neut % (Auto) (50-75) % Lymph % (Auto) (25-40) % Potter % (Auto) (3-14) % Eos % (Auto) (2-4) % Baso % (Auto) (0-2) % Neut # (Auto) (7082-4349) /uL Lymph # (Auto) (9536-1027) /uL Potter # (Auto) (0-900) /uL Eos # (Auto) (0-450) /uL Baso # (Auto) (0-100) /uL ESR (0-15) MM/HR PT 17.1 H (10.1-12.7) SECONDS INR 1.5 H (0.9-1.3) APTT 30 (26.4-36.2) SECONDS D-Dimer 807 H (<230) ng/mL Sodium (137-145) mmol/L Potassium (3.4-5.1) mmol/L Chloride (98-107) mmol/L Carbon Dioxide (22-32) mmol/L BUN (9-20) mg/dL Creatinine (0.66-1.25) mg/dL Estimated GFR (>60) mL/min BUN/Creatinine Ratio (6-22) Glucose (70-100) mg/dL Lactate 1.3 (0.7-2.1) mmol/L Calcium (8.4-10.2) mg/dL Ferritin (18-464) ng/mL Total Bilirubin (0.2-1.3) mg/dL AST (17-59) IU/L ALT (<50) IU/L Alkaline Phosphatase (38-126) U/L Lactate Dehydrogenase (313-618) U/L Total Creatine Kinase (55-170) U/L CK-MB (CK-2) CK-MB (CK-2) Rel Index Troponin I (0.01-0.034) ng/mL C-Reactive Protein (<1.0) mg/dL NT-Pro-B Natriuret Pep (<125) pg/mL Total Protein (6.3-8.2) g/dL Albumin (3.5-5.0) g/dL Globulin (1.7-4.1) g/dL Albumin/Globulin Ratio (1.0-2.8) Lipase (23-300) U/L Procalcitonin 0.19 (<0.5) ng/mL Acetaminophen (10-30) ug/mL COVID-19 PCR (Not Detect) Hepatitis A IgM Ab (Negative) Hep Bs Antigen (Negative) Hep B Core IgM Ab (Negative) Hepatitis C Antibody (0.0-0.9) s/co ratio Hep C Ab Signal/Cutoff (.) 07/19/19 07/19/19 07/19/19 Range/Units 15:35 15:35 15:35 WBC (4.5-11.0) X10^3/uL RBC (4.5-5.9) X10^6/uL Hgb (13.5-17.5) g/dL Hct (41-53) % MCV (80-100) fL MCH (26-34) PG MCHC (30-36) % RDW (11.6-14.8) % Plt Count (150-400) X10^3/uL Neut % (Auto) (50-75) % Lymph % (Auto) (25-40) % Potter % (Auto) (3-14) % Eos % (Auto) (2-4) % Baso % (Auto) (0-2) % Neut # (Auto) (2812-0169) /uL Lymph # (Auto) (1198-4680) /uL Potter # (Auto) (0-900) /uL Eos # (Auto) (0-450) /uL Baso # (Auto) (0-100) /uL ESR (0-15) MM/HR PT (10.1-12.7) SECONDS INR (0.9-1.3) APTT (26.4-36.2) SECONDS D-Dimer (<230) ng/mL Sodium (137-145) mmol/L Potassium (3.4-5.1) mmol/L Chloride (98-107) mmol/L Carbon Dioxide (22-32) mmol/L BUN (9-20) mg/dL Creatinine (0.66-1.25) mg/dL Estimated GFR (>60) mL/min BUN/Creatinine Ratio (6-22) Glucose (70-100) mg/dL Lactate (0.7-2.1) mmol/L Calcium (8.4-10.2) mg/dL Ferritin 93 (18-464) ng/mL Total Bilirubin (0.2-1.3) mg/dL AST (17-59) IU/L ALT (<50) IU/L Alkaline Phosphatase (38-126) U/L Lactate Dehydrogenase 633 H (313-618) U/L Total Creatine Kinase (55-170) U/L CK-MB (CK-2) CK-MB (CK-2) Rel Index Troponin I (0.01-0.034) ng/mL C-Reactive Protein 4.9 H (<1.0) mg/dL NT-Pro-B Natriuret Pep (<125) pg/mL Total Protein (6.3-8.2) g/dL Albumin (3.5-5.0) g/dL Globulin (1.7-4.1) g/dL Albumin/Globulin Ratio (1.0-2.8) Lipase (23-300) U/L Procalcitonin (<0.5) ng/mL Acetaminophen < 10 L (10-30) ug/mL COVID-19 PCR Not detected (Not Detect) Hepatitis A IgM Ab (Negative) Hep Bs Antigen (Negative) Hep B Core IgM Ab (Negative) Hepatitis C Antibody (0.0-0.9) s/co ratio Hep C Ab Signal/Cutoff (.) Discharge Plan Departure Patient Disposition: Admitted as Observation Clinical Impression: Cardiomegaly, Liver disease Pancreatitis Qualifiers: Chronicity: acute Pancreatitis type: alcohol induced Acute pancreatitis complication: unspecified Qualified Code(s): K85.20 - Alcohol induced acute pancreatitis without necrosis or infection Heart failure Qualifiers: Heart failure type: unspecified Heart failure chronicity: unspecified Qualified Code(s): I50.9 - Heart failure, unspecified Discharge Date/Time: 07/19/19 17:45 Admit Date/Time: 07/19/19 17:12 Admit Provider: Gene Michele
[2019-07-19 15:52] LABS: INR 1.5 (0.9-1.3); Prothrombin Time 17.1 SECONDS (10.1-12.7)
[2019-07-19 15:55] LABS: PTT Partial Thromboplastin Tim 30 SECONDS (26.4-36.2)
[2019-07-19 15:58] LABS: D Dimer 807 ng/mL (<230)
[2019-07-19 16:02] LABS: Erythrocyte Sedimentation Rate 2 MM/HR (0-15)
[2019-07-19 16:05] LABS: Lactate (Lactic Acid) 1.3 mmol/L (0.7-2.1)
[2019-07-19 16:09] LABS: C-Reactive Protein Quant 4.9 mg/dL (<1.0); Lactate Dehydrogenase 633 U/L (313-618)
[2019-07-19 16:33] LABS: Procalcitonin 0.19 ng/mL (<0.5)
[2019-07-19 16:41] LABS: Ferritin 93 ng/mL (18-464)
[2019-07-19 16:48] LABS: Acetaminophen < 10 ug/mL (10-30)
[2019-07-19] MEDS: FUROSEMIDE 40 MG/4 ML VIAL IV (17:33)
--- NOTE | 2019-07-19 18:29 | PM.HP.1 ---
History of Present Illness History of Present Illness Date Patient Seen: 07/19/19 Time Patient Seen: 18:30 Chief complaint: Pancreatitis x2 weeks Narrative: Kirk Newman is a 29 year old male with PMH of EtOH abuse who presented to the emergency room with 2 weeks of continued abdominal pain and recent lower extremity and abdominal swelling. He presented to [facility] emergency room on June 30 complaining of abdominal pain which had started a few days prior. Pain was epigastric in nature, non, radiating, not seemingly related to food. He had associated nausea, vomiting, and diarrhea. He had a CT scan there which showed a small right-sided pleural effusion, and enlarged heart, and reflux into the hepatic veins consistent with a cardiomyopathy. He also had an enlarged liver, at 19.8 cm, mild edema in the pancreatic head with mild surrounding inflammation surrounding the duodenum and extending along the right inferior hepatic lobe, with small volume ascites, and a right kidney cyst. This was consistent with acute pancreatitis according to the radiologist. Patient was discharged from the emergency room with plan for a follow-up with his PCP for outpatient cardiology follow-up and an echocardiogram was ordered. The patient never followed up for the studies or with his PCP. His labs in the emergency room at [facility] showed a total bilirubin of 2.1, AST of 29, ALT of 51, and alk-phos of 52. His creatinine at that time was also noted to be 1.4. Patient was given a prescription for pain medications. His pain however, continued over the next 2 weeks. In over the last few days he has noticed increasing abdominal girth, as well as lower extremity swelling, and worsening cough. He endorses mild chills, but no fever. He also complains of dyspnea on exertion over the past few weeks. He was not ruled out for COVID-19 at [facility]. In the emergency room here, the patient was afebrile, normotensive, mildly tachycardic, but saturating well on room air. Initial laboratory evaluation showed an unremarkable CBC. His INR was elevated at 1.5, sodium of 136, glucose of 128, lactate 1.3, T bili was elevated at 3.0, AST of 133, ALT of 412, alk phos of 87. LDH was 633. CRP was 4.9, proBNP was 45481, lipase of 334. Procalcitonin is 0.19. Tylenol level was negative. Hepatitis serologies were sent from the emergency room, as was COVID-19 PCR. His D-dimer was elevated at 807. EKG with a LBBB and wide QRS morphology throughout, early repolarization abnormalities, but sinus rhythm. CXR with cardiomegaly and trace bilateral pleural effusions. Repeat CT scan performed here again showed cardiomegaly with left ventricular dilatation, a liver with nodular margins suggesting hepatic cirrhosis, moderate amount of free fluid / ascites, diverticulosis without diverticulitis. His pancreas was unremarkable. Emergency room discussed with a sustain engineer at [facility] who recommended initial laboratory evaluation, trending of his hepatic function, and outpatient follow up. Patient's alcohol intake consists of an average of 8-10 beers, with a maximum of 12 beers and a half a 5th of vodka a day. 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 So he also continues to drink 7 on 7 off. He has been doing this for about 2-3 years now, and drink somewhat to a lesser extent before that. He denies any family history of liver disease or heart disease. He denies any occupational exposures. He denies any IV drug use. He has attempted marijuana recently to help with his abdominal pain which does seemingly help, and he smokes about 1/4 of a pack daily. He denies any tremors or diaphoresis when not drinking, nor has he had any seizures in the past or intubations. He does not take any chronic medications. Patient History Surgical History No pertinent past surgical history (Acute) Family & Social History Social History: household members children Prior Living Arrangements House Safety & Behavioral: Feels Safe in Current Yes Environment Been Physically Hurt or No Threatened By a Person Suicidal Ideation Description None Suicide Plan Description No Plan Tobacco & Substance use: Smoking Status Current every day smoker Smoking packs per day 0.3 alcohol intake former alcohol intake frequency 3 or more drinks per day Substance Use Type does not use Meds Home Medications and Allergies Allergies Allergy/AdvReac Type Severity Reaction Status Date / Time No Known Drug Allergies Allergy Verified 07/19/19 12:36 Review of Systems Review of Systems Narrative: All other systems reviewed with the patient and are negative unless otherwise stated. Exam Vital Signs (past 8 hours): - 07/19/19 11:55 07/19/19 13:55 07/19/19 15:43 Temperature 98.5 F Pulse Rate 97 H 111 H 96 H Respiratory Rate 16 18 18 Blood Pressure 125/90 Blood Pressure [Right Arm] 111/82 Pulse Oximetry 100 96 97 07/19/19 17:40 07/19/19 17:50 Temperature 97.2 F L Pulse Rate 99 H 98 H Respiratory Rate 18 16 Blood Pressure 111/71 111/82 Blood Pressure [Right Arm] Pulse Oximetry 97 100 Oxygen Delivery Method Room Air Oxygen Flow Rate 0 Narrative Exam Narrative: GENERAL APPEARANCE: Well developed, well nourished, in no acute distress. SKIN: Inspection of the skin reveals, ulcerations or petechiae. There is a rash over his abdomen that is near skin colored, only on his left side, and slightly raised, with small lesions that convalesce. HEENT: Normocephalic atraumatic, extraocular muscles are intact, oropharynx is clear and mucous membranes are moist, neck is supple without adenopathy NECK: Supple and symmetric. There was no thyroid enlargement, and no tenderness, or masses were felt. CHEST: Normal AP diameter and normal contour without any kyphoscoliosis. LUNGS: Auscultation of the lungs revealed no wheezes. There are rales in the bilateral lung bases and breath sounds are slightly diminished over the bases as well. He is not in respiratory distress. CARDIOVASCULAR: Regular rate and rhythm, 3+ systolic murmur. No rubs or gallops. ABDOMEN: Soft and nontender with normal bowel sounds. + Fluid wave but not overtly distended on appearance. MUSCULOSKELETAL: There was no tenderness or effusions noted. Muscle strength and tone were normal. EXTREMITIES: No cyanosis, clubbing. There is trace to 1+ pitting edema in his bilateral lower extremities. NEUROLOGIC: Alert and oriented x 3. Normal affect. Gait was normal. Strength is +5/5 in the Upper Extremities and Lower Extremities Bilaterally. Sensation to touch was normal. Objective ECG Impression: LBBB, sinus rhythm at 95, ISIAH likely early repolarization. Labs Result Diagrams: 07/19/19 12:30 07/19/19 12:30 Labs: Laboratory Results - last 24 hr 07/19/19 07/19/19 07/19/19 12:30 12:30 12:30 WBC 8.9 RBC 5.11 Hgb 15.4 Hct 45.8 MCV 89.6 MCH 30.1 MCHC 33.6 RDW 15.0 H Plt Count 325 Neut % (Auto) 71.3 Lymph % (Auto) 20.6 L Sanders % (Auto) 5.3 Eos % (Auto) 2.4 Baso % (Auto) 0.4 Neut # (Auto) 6400 Lymph # (Auto) 1800 Sanders # (Auto) 500 Eos # (Auto) 200 Baso # (Auto) 0 ESR PT INR APTT D-Dimer Sodium 136 L Potassium 4.1 Chloride 104 Carbon Dioxide 22 BUN 21 H Creatinine 1.06 Estimated GFR > 60.0 BUN/Creatinine Ratio 19.8 Glucose 128 H Lactate Calcium 8.6 Ferritin Total Bilirubin 3.0 H AST 133 H ALT 412 H Alkaline Phosphatase 87 Lactate Dehydrogenase Total Creatine Kinase 99 CK-MB (CK-2) TNP CK-MB (CK-2) Rel Index TNP Troponin I < 0.012 C-Reactive Protein NT-Pro-B Natriuret Pep Total Protein 6.5 Albumin 3.4 L Globulin 3.1 Albumin/Globulin Ratio 1.1 Lipase 334 H Procalcitonin Acetaminophen 07/19/19 07/19/19 07/19/19 12:30 12:30 15:35 WBC RBC Hgb Hct MCV MCH MCHC RDW Plt Count Neut % (Auto) Lymph % (Auto) Sanders % (Auto) Eos % (Auto) Baso % (Auto) Neut # (Auto) Lymph # (Auto) Sanders # (Auto) Eos # (Auto) Baso # (Auto) ESR 2 PT 17.1 H INR 1.5 H APTT 30 D-Dimer 807 H Sodium Potassium Chloride Carbon Dioxide BUN Creatinine Estimated GFR BUN/Creatinine Ratio Glucose Lactate Calcium Ferritin Total Bilirubin AST ALT Alkaline Phosphatase Lactate Dehydrogenase Total Creatine Kinase CK-MB (CK-2) CK-MB (CK-2) Rel Index Troponin I C-Reactive Protein NT-Pro-B Natriuret Pep 26957 H Total Protein Albumin Globulin Albumin/Globulin Ratio Lipase Procalcitonin Acetaminophen 07/19/19 07/19/19 07/19/19 15:35 15:35 15:35 WBC RBC Hgb Hct MCV MCH MCHC RDW Plt Count Neut % (Auto) Lymph % (Auto) Sanders % (Auto) Eos % (Auto) Baso % (Auto) Neut # (Auto) Lymph # (Auto) Sanders # (Auto) Eos # (Auto) Baso # (Auto) ESR PT INR APTT D-Dimer Sodium Potassium Chloride Carbon Dioxide BUN Creatinine Estimated GFR BUN/Creatinine Ratio Glucose Lactate 1.3 Calcium Ferritin 93 Total Bilirubin AST ALT Alkaline Phosphatase Lactate Dehydrogenase 633 H Total Creatine Kinase CK-MB (CK-2) CK-MB (CK-2) Rel Index Troponin I C-Reactive Protein 4.9 H NT-Pro-B Natriuret Pep Total Protein Albumin Globulin Albumin/Globulin Ratio Lipase Procalcitonin 0.19 Acetaminophen 07/19/19 15:35 WBC RBC Hgb Hct MCV MCH MCHC RDW Plt Count Neut % (Auto) Lymph % (Auto) Sanders % (Auto) Eos % (Auto) Baso % (Auto) Neut # (Auto) Lymph # (Auto) Sanders # (Auto) Eos # (Auto) Baso # (Auto) ESR PT INR APTT D-Dimer Sodium Potassium Chloride Carbon Dioxide BUN Creatinine Estimated GFR BUN/Creatinine Ratio Glucose Lactate Calcium Ferritin Total Bilirubin AST ALT Alkaline Phosphatase Lactate Dehydrogenase Total Creatine Kinase CK-MB (CK-2) CK-MB (CK-2) Rel Index Troponin I C-Reactive Protein NT-Pro-B Natriuret Pep Total Protein Albumin Globulin Albumin/Globulin Ratio Lipase Procalcitonin Acetaminophen < 10 L Assessment & Plan Assessment & Plan narrative: Kirk Newman is a 29 year old male with PMH of EtOH abuse who presented to the emergency room with 2 weeks of continued abdominal pain and recent swelling, likely sequaelae of new onset cirrhosis and / or cardiomyopathy based on intial imaging. He is admitted for further evaluation of new cirrhosis and cardiomyopathy. 1. New onset cirrhosis, with ascites, acute, present on admission - hepatomegaly was present on CT imaging from 06/30. Repeat here now showing nodular cirrhosis two weeks later. He further has elevations in his LFTs that were not present two weeks ago upon initial presentation to an outside ED. - INR 1.5, Na 136, Tbili 3.0 on admission. MELD of 16 on admission labs. - etiology most likely is alcohol. However, he is only 29 years old, and though he has been drinking heavily over the past few years there is a possibility of an alternative cause. His AST/ALT ratio is not consistent with alcoholic cirrhosis, and neither are his other labs (normal Plt count, no anemia, etc.). He also has evidence of a concurrent cardiomyopathy and more systemic causes should be considered along with EtOH cirrhosis and dilated cardiomopathy. - [facility] was consulted in the ER, recommended continued trending of liver function tests, liver enzyme tests and if stable or improving outpatient follow up. - have ordered LKM Ab, DEBORAH, ASMA, hepatitis serologies, HIV. Will obtain RUQ ultrasound with doppler. - start lasix and aldactone - consider diagnostic paracentesis when COVID-19 results and if there is sufficient ascites for a safe procedure. - tylenol level on admission <10. Patient did not endorse taking prescribed [place] upon discharge, instead marijuana use. 2.decompensated heart failure, present on admission, unknown if acute or chronic, unkonwn - cardiomegaly with bilateral pleural effusions seen on CT imaging and chest XR. - etiologies could include a dilated cardiomyopathy secondary to alcohol, ischemic related (less likely), or systemic illness given concurrent cirrhosis. - have ordered TTE - diuresis as noted above. - EKG with wide complex morphology and early repolarization abnormalities. 3. bilateral pleural effusions, present on admission - likely secondary to volume overload, either from cardiomyopathy or cirrhosis. - CT also showing bilateral ground glass opacities. COVID-19 send by ER. 4. Elevated liver enzymes, acute, present on admission - ALT is much higher that AST pointing towards a liver specific process. Although alcohol is high on the differential this pattern is not consistent with alocholic etiology. - see workup above under cirrhosis - continue to follow along with INR. 5. Possible COVID 19 infection - unlikely based on presentation, lab findings, and other more probable causes of chest imaging findings. - Continue dropley and contact isolation until test results. Code: full, surrogate decision make he states is his mother Dispo: Admitted as inpatient as his stay is expected to exceed two midnights. He is likely to discharge home. DVT: Lovenox daily. Quality VTE Deep Vein Thrombosis/Pulmonary Embolism Present on Admission: No
--- NOTE | 2019-07-19 18:31 | DI.ECHO.S_ITS ---
[facility] +---------+ : : [address] [place] : : : : [id number] : : : : Phone: [phone]+ Echocardiogram Report + + :Name: JU GAO Study Date: 07/20/2019 Height: 70 in : :[facility] Weight: 190 lb : : Gender: Male BSA: 2.0 m2 : :: 1990 Age: 29 yrs BP: 102/79 mmHg: :Reason For Study: Suspected Cardiomyopathy : :Ordering Physician: Consuelo : :Hospitalist Performed By: Aicha Yusuf : :Referring: EDWIN BONILLA : + + Interpretation Summary Severely dilated left ventricle with ejection fraction 10-15%. Global longitudinal peak systolic strain average of -3.3%. Mildly dilated right ventricle with moderately reduced right ventricular systolic function. Severe biatrial enlargement. Moderate mitral regurgitation. Severe tricuspid regurgitation. Procedure: A two-dimensional transthoracic echocardiogram with color flow and Doppler was performed. The study quality was technically good. There is no prior echocardiogram noted for this patient. The patient was in sinus tachycardia with heart rates between 98-114 bpm during the exam. Left Ventricle: The left ventricle is severely dilated. The ejection fraction is estimated to be 10-15%. Global longitudinal peak systolic strain average of -3.3%. There is severe global hypokinesis of the left ventricle. Diastolic function could not be accurately assessed due to tachycardia. Right Ventricle: The right ventricle is mildly dilated. Right ventricular systolic function is moderately reduced. Atria: There is severe biatrial enlargement. There is no Doppler evidence for an interatrial shunt. Mitral Valve: The mitral valve is normal in structure and function. There is moderate mitral regurgitation. Aortic Valve: The aortic valve is trileaflet. The aortic valve opens well. There is no aortic valve stenosis. There is trace aortic regurgitation. Tricuspid Valve: There is severe tricuspid regurgitation. RVSP is likely underestimated due to severity of tricuspid regurgitation. Pulmonic Valve: The pulmonic valve leaflets are thin and pliable; valve motion is normal. There is trace pulmonic regurgitation. Great Vessels: The aortic root is normal size. The ascending aorta could not be visualized. The IVC is dilated (diameter is greater than 2.1 cm) and it collapses less than 50% with a sniff. This suggests a high right atrial pressure of 15 mm Hg. Pericardium/ Pleura There is a trivial pericardial effusion noted. There is no pleural effusion. MMode/2D Measurements & Calculations LVIDd: 8.8 cm LVOT diam: 2.6 cm LVIDs: 8.4 cm Ao root diam: 3.0 cm FS: 4.9 % Ao Arch Diam (Prox Trans): 2.9 cm EPSS: 3.6 cm IVSd: 0.71 cm LVPWd: 0.90 cm LV felix. diameter/BSA (cm/m^2): 4.3 LV sys. diameter/BSA (cm/m^2): 4.1 LA A2 area: 34.5 cm2 RA long axis: 6.5 cm LA A4 area: 35.7 cm2 RA area: 31.3 cm2 LA length (vol): 6.9 cm RA vol: 126.9 ml LA vol: 152.3 ml RA : 62.1 ml/m2 LA vol index: 74.6 ml/m2 RVD1 (basal): 4.3 cm TAPSE: 1.2 cm Doppler Measurements & Calculations Ao V2 max: 74.9 cm/sec LVOT Max Stef: 46.2 cm/sec Ao V2 mean: 48.9 cm/sec LV V1 max P.85 mmHg Ao max P.2 mmHg LV V1 VTI: 6.0 cm Ao mean P.2 mmHg SHASHI(I,D): 2.7 cm2 Ao V2 VTI: 11.6 cm SHASHI(V,D): 3.2 cm2 sev ratio: 0.52 SHASHI indexed to BSA (cm^2/m^2): 1.3 MV E max stef: 105.8 cm/sec TR max stef: 280.9 cm/sec MV A max stef: 1.6 cm/sec TR max P.6 mmHg MV E/A: 64.2 PA V2 max: 55.2 cm/sec Lat Peak E' Stef: 17.2 cm/sec PA V2 mean: 36.5 cm/sec E/E' lat: 6.2 PA mean P.63 mmHg MV dec time: 0.11 sec PA pr(Accel): 50.7 mmHg MR ERO: 0.34 cm2 MR PISA: 3.7 cm2 SV(LVOT): 30.9 ml MR flow rate: 147.6 cm3/sec MR PISA radius: 0.77 cm Electronically signed by: Andrew Mari on Reading Physician:07/20/2019 11:17 AM
[2019-07-19] MEDS: MORPHINE 4 MG/ML INJ IV (19:45)
[2019-07-20] VITALS (13 sets, daily range): BP systolic 108–129; BP diastolic 76–91; PULSE 94–109; RESP 16–20; TEMP 36.3–37; O2SAT 95–98
[2019-07-20 03:19] LABS: COVID19 Sendout Not Detected (Not Detect)
--- NOTE | 2019-07-20 04:46 | PC.NURSE ---
lab called and said patient had no covid 19 detected.
[2019-07-20] MEDS: MORPHINE 2 MG/ML INJ IV ×2 (06:16)
[2019-07-20 06:22] LABS: Add Manual Diff / Slide Review NO; Basophils Absolute Auto 0 /uL (0-100); Basophils Percent Auto 0.4 % (0-2); Eosinophils Absolute Auto 200 /uL (0-450); Eosinophils Percent Auto 2.4 % (2-4); Hematocrit 42.8 % (41-53); Hemoglobin 13.9 g/dL (13.5-17.5); Lymphocytes Absolute Auto 2500 /uL (1100-4500); Lymphocytes Percent Auto 27.3 % (25-40); Mean Corpuscular HGB Conc 32.4 % (30-36); Mean Corpuscular Hemoglobin 29.3 PG (26-34); Mean Corpuscular Volume 90.2 fL (80-100); Monocytes Absolute Auto 600 /uL (0-900); Neutrophils Absolute Auto 5800 /uL (1500-7000); Neutrophils Percent Auto 62.9 % (50-75); Platelet Count 326 X10^3/uL (150-400); Red Blood Cell Count 4.75 X10^6/uL (4.5-5.9); Red Cell Distribution Width 15.4 % (11.6-14.8); White Blood Cell Count 9.2 X10^3/uL (4.5-11.0)
[2019-07-20 06:26] LABS: Hemoglobin A1C% w Est Avg Glu 5.5 % (4.0-6.0)
[2019-07-20 06:30] LABS: INR 1.5 (0.9-1.3); Prothrombin Time 16.9 SECONDS (10.1-12.7)
[2019-07-20 06:34] LABS: Alanine Aminotransferase 318 IU/L (<50); Albumin 3.1 g/dL (3.5-5.0); Albumin Globulin Ratio 1.1 (1.0-2.8); Alkaline Phosphatase 83 U/L (38-126); Aspartate Aminotransferase 88 IU/L (17-59); BUN Creatinine Ratio 18.7 (6-22); Bilirubin Total 2.5 mg/dL (0.2-1.3); Bilirubin Unconjugated 1.6 mg/dL (0.0-1.1); Blood Urea Nitrogen 20 mg/dL (9-20); Calcium 8.2 mg/dL (8.4-10.2); Carbon Dioxide 22 mmol/L (22-32); Chloride 105 mmol/L (98-107); Cholesterol 103 mg/dL (140-199); Estimated Glomerular Filt Rate > 60.0 mL/min (>60); Globulin 2.9 g/dL (1.7-4.1); Glucose 94 mg/dL (70-100); HDL Cholesterol 10 mg/dL (40-60); HEMOLYSIS < 15 (0-50); LDL Cholesterol Calculated 72 mg/dL (<100); Magnesium 2.2 mg/dL (1.6-2.3); Potassium 3.9 mmol/L (3.4-5.1); Sodium 136 mmol/L (137-145); Triglycerides 103 mg/dL (35-150)
[2019-07-20 07:07] LABS: TSH w/ Reflex to FT4 3.89 uIU/mL (0.47-4.68)
[2019-07-20 08:28] LABS: HBsAg Screen Negative (Negative); Hepatitis A Antibody IgM Negative (Negative); Hepatitis B Core Antibody IgM Negative (Negative); Hepatitis C Antibody <0.1 s/co ratio (0.0-0.9)
[2019-07-20] MEDS: FUROSEMIDE 40 MG TABLET PO (09:10)
[2019-07-20] MEDS: ENOXAPARIN 40 MG/0.4 ML SYRINGE SUBCUT (09:10)
[2019-07-20] MEDS: SPIRONOLACTONE 50 MG TABLET PO (09:13)
[2019-07-20] MEDS: OXYCODONE IR 5 MG TABLET PO ×4 (09:15→20:35)
--- NOTE | 2019-07-20 11:40 | DI.US.S_ITS ---
PROCEDURE: US ABDOMEN LIMITED INDICATIONS: CIRRHOSIS; DOPPLER TECHNIQUE: Real-time scanning was performed of the abdominal and retroperitoneal organs, with image documentation. COMPARISON: None. FINDINGS: Liver: There is enlargement measuring 21.6 cm. Hepatic artery and portal veins are within normal limits with expected direction of flow. Slight increased resistance is noted within the right and mid hepatic veins, although with expected direction of flow. Gallbladder: Nonmobile focus of increased echogenicity is present within the gallbladder lumen. Gallbladder wall is thickened ranging from 0.4-0.7 mm. Trace perihepatic fluid. Biliary ducts: Intrahepatic bile ducts are non-dilated. Extrahepatic bile duct caliber measures 4.8 mm. Normal is 6-7 mm or less in diameter, or 10 mm or less post-cholecystectomy. Pancreas: Visualized portions of the pancreas are sonographically normal. Miscellaneous: Minimal free fluid is noted within the left and right upper quadrant as well as right lower quadrant. IMPRESSION: 1. Hepatomegaly. 2. Nonmobile focus of increased echogenicity within the gallbladder suspected to be polyp. Adherent stone cannot be excluded. 3. Marked gallbladder wall thickening as above. This can be seen with hepatic disease. Recommend correlation patient's symptoms as cholecystitis cannot be definitively excluded. Dictated by: Harmony Galan M.D. on 07/20/2019 at 11:44 Approved by: Harmony Galan M.D. on 07/20/2019 at 11:47
--- NOTE | 2019-07-20 12:03 | PM.PN.1 ---
Subjective Subjective Date Patient Seen: 07/20/19 Time Patient Seen: 12:04 Interval history: Kirk Newman is a 29 year old male with PMH of EtOH abuse who presented to the emergency room with 2 weeks of continued abdominal pain and recent lower extremity and abdominal swelling. His echocardiogram today showed an EF between 10 and 15%, which is a new new diagnosis for him. His abdominal should ultrasound showed minimal free fluid, hepatomegaly, but no concern for thrombosis or cirrhosis. He states that he feels somewhat better, but still little bit bloated. He states his breathing is much improved today. Attempted diuresis but was 700 mL positive per intake and output and weight is about the same. Spoke with cardiology on the phone, and believes that his symptoms are largely related to his dilated cardiomyopathy, and that his liver dysfunction is cardiac related as well. She recommended starting lisinopril 2.5 mg daily, as well as more aggressive diuresis with 40 mg of IV Lasix b.i.d. with goal of 2-3 L diuresis daily. Exam Vital Signs (past 8 hours): - 07/20/19 05:00 07/20/19 08:01 07/20/19 08:14 Temperature 98.2 F Pulse Rate 94 H 99 H Respiratory Rate 18 Blood Pressure 129/84 Pulse Oximetry 98 98 98 07/20/19 09:14 Temperature 98.1 F Pulse Rate 95 H Respiratory Rate 16 Blood Pressure 126/91 H Pulse Oximetry 98 Oxygen Delivery Method Room Air Oxygen Flow Rate 0 Narrative Exam Narrative: GENERAL APPEARANCE: Well developed, well nourished, in no acute distress. SKIN: Inspection of the skin reveals, ulcerations or petechiae. There is a rash over his abdomen that is near skin colored, only on his left side, and slightly raised, with small lesions that convalesce. HEENT: Normocephalic atraumatic, extraocular muscles are intact, oropharynx is clear and mucous membranes are moist, neck is supple without adenopathy NECK: Supple and symmetric. There was no thyroid enlargement, and no tenderness, or masses were felt. CHEST: Normal AP diameter and normal contour without any kyphoscoliosis. LUNGS: Auscultation of the lungs revealed no wheezes. There are rales in the bilateral lung bases and breath sounds are slightly diminished over the bases as well. He is not in respiratory distress. CARDIOVASCULAR: Regular rate and rhythm, 3+ systolic murmur. No rubs or gallops. ABDOMEN: Soft and nontender with normal bowel sounds. No fluid wave today not overtly distended on appearance. MUSCULOSKELETAL: There was no tenderness or effusions noted. Muscle strength and tone were normal. EXTREMITIES: No cyanosis, clubbing. There is pitting edema in his bilateral lower extremities. NEUROLOGIC: Alert and oriented x 3. Normal affect. Gait was normal. Strength is +5/5 in the Upper Extremities and Lower Extremities Bilaterally. Sensation to touch was normal. Objective Labs Result Diagrams: 07/20/19 06:05 07/20/19 06:05 Labs: Laboratory Results - last 24 hr 07/19/19 07/19/19 07/19/19 12:30 12:30 12:30 WBC 8.9 RBC 5.11 Hgb 15.4 Hct 45.8 MCV 89.6 MCH 30.1 MCHC 33.6 RDW 15.0 H Plt Count 325 Neut % (Auto) 71.3 Lymph % (Auto) 20.6 L [place] % (Auto) 5.3 Eos % (Auto) 2.4 Baso % (Auto) 0.4 Neut # (Auto) 6400 Lymph # (Auto) 1800 [place] # (Auto) 500 Eos # (Auto) 200 Baso # (Auto) 0 ESR PT INR APTT D-Dimer Sodium 136 L Potassium 4.1 Chloride 104 Carbon Dioxide 22 BUN 21 H Creatinine 1.06 Estimated GFR > 60.0 BUN/Creatinine Ratio 19.8 Glucose 128 H Hemoglobin A1c Lactate Calcium 8.6 Magnesium Ferritin Total Bilirubin 3.0 H Conjugated Bilirubin Unconjugated Bilirubin AST 133 H ALT 412 H Alkaline Phosphatase 87 Lactate Dehydrogenase Total Creatine Kinase 99 CK-MB (CK-2) TNP CK-MB (CK-2) Rel Index TNP Troponin I < 0.012 C-Reactive Protein NT-Pro-B Natriuret Pep Total Protein 6.5 Albumin 3.4 L Globulin 3.1 Albumin/Globulin Ratio 1.1 Triglycerides Cholesterol LDL Cholesterol, Calc HDL Cholesterol Lipase 334 H Procalcitonin TSH Acetaminophen COVID-19 PCR Hepatitis A IgM Ab Hep Bs Antigen Hep B Core IgM Ab Hepatitis C Antibody Hep C Ab Signal/Cutoff 07/19/19 07/19/19 07/19/19 12:30 12:30 15:35 WBC RBC Hgb Hct MCV MCH MCHC RDW Plt Count Neut % (Auto) Lymph % (Auto) [place] % (Auto) Eos % (Auto) Baso % (Auto) Neut # (Auto) Lymph # (Auto) [place] # (Auto) Eos # (Auto) Baso # (Auto) ESR 2 PT INR APTT D-Dimer Sodium Potassium Chloride Carbon Dioxide BUN Creatinine Estimated GFR BUN/Creatinine Ratio Glucose Hemoglobin A1c Lactate Calcium Magnesium Ferritin Total Bilirubin Conjugated Bilirubin Unconjugated Bilirubin AST ALT Alkaline Phosphatase Lactate Dehydrogenase Total Creatine Kinase CK-MB (CK-2) CK-MB (CK-2) Rel Index Troponin I C-Reactive Protein NT-Pro-B Natriuret Pep 31664 H Total Protein Albumin Globulin Albumin/Globulin Ratio Triglycerides Cholesterol LDL Cholesterol, Calc HDL Cholesterol Lipase Procalcitonin TSH Acetaminophen COVID-19 PCR Hepatitis A IgM Ab Negative Hep Bs Antigen Negative Hep B Core IgM Ab Negative Hepatitis C Antibody <0.1 Hep C Ab Signal/Cutoff Comment 07/19/19 07/19/19 07/19/19 15:35 15:35 15:35 WBC RBC Hgb Hct MCV MCH MCHC RDW Plt Count Neut % (Auto) Lymph % (Auto) [place] % (Auto) Eos % (Auto) Baso % (Auto) Neut # (Auto) Lymph # (Auto) [place] # (Auto) Eos # (Auto) Baso # (Auto) ESR PT 17.1 H INR 1.5 H APTT 30 D-Dimer 807 H Sodium Potassium Chloride Carbon Dioxide BUN Creatinine Estimated GFR BUN/Creatinine Ratio Glucose Hemoglobin A1c Lactate 1.3 Calcium Magnesium Ferritin Total Bilirubin Conjugated Bilirubin Unconjugated Bilirubin AST ALT Alkaline Phosphatase Lactate Dehydrogenase Total Creatine Kinase CK-MB (CK-2) CK-MB (CK-2) Rel Index Troponin I C-Reactive Protein NT-Pro-B Natriuret Pep Total Protein Albumin Globulin Albumin/Globulin Ratio Triglycerides Cholesterol LDL Cholesterol, Calc HDL Cholesterol Lipase Procalcitonin 0.19 TSH Acetaminophen COVID-19 PCR Hepatitis A IgM Ab Hep Bs Antigen Hep B Core IgM Ab Hepatitis C Antibody Hep C Ab Signal/Cutoff 07/19/19 07/19/19 07/19/19 15:35 15:35 15:35 WBC RBC Hgb Hct MCV MCH MCHC RDW Plt Count Neut % (Auto) Lymph % (Auto) [place] % (Auto) Eos % (Auto) Baso % (Auto) Neut # (Auto) Lymph # (Auto) [place] # (Auto) Eos # (Auto) Baso # (Auto) ESR PT INR APTT D-Dimer Sodium Potassium Chloride Carbon Dioxide BUN Creatinine Estimated GFR BUN/Creatinine Ratio Glucose Hemoglobin A1c Lactate Calcium Magnesium Ferritin 93 Total Bilirubin Conjugated Bilirubin Unconjugated Bilirubin AST ALT Alkaline Phosphatase Lactate Dehydrogenase 633 H Total Creatine Kinase CK-MB (CK-2) CK-MB (CK-2) Rel Index Troponin I C-Reactive Protein 4.9 H NT-Pro-B Natriuret Pep Total Protein Albumin Globulin Albumin/Globulin Ratio Triglycerides Cholesterol LDL Cholesterol, Calc HDL Cholesterol Lipase Procalcitonin TSH Acetaminophen < 10 L COVID-19 PCR Not detected Hepatitis A IgM Ab Hep Bs Antigen Hep B Core IgM Ab Hepatitis C Antibody Hep C Ab Signal/Cutoff 07/20/19 07/20/19 07/20/19 06:05 06:05 06:05 WBC 9.2 RBC 4.75 Hgb 13.9 Hct 42.8 MCV 90.2 MCH 29.3 MCHC 32.4 RDW 15.4 H Plt Count 326 Neut % (Auto) 62.9 Lymph % (Auto) 27.3 [place] % (Auto) 7.0 Eos % (Auto) 2.4 Baso % (Auto) 0.4 Neut # (Auto) 5800 Lymph # (Auto) 2500 [place] # (Auto) 600 Eos # (Auto) 200 Baso # (Auto) 0 ESR PT INR APTT D-Dimer Sodium 136 L Potassium 3.9 Chloride 105 Carbon Dioxide 22 BUN 20 Creatinine 1.07 Estimated GFR > 60.0 BUN/Creatinine Ratio 18.7 Glucose 94 Hemoglobin A1c 5.5 Lactate Calcium 8.2 L Magnesium 2.2 Ferritin Total Bilirubin 2.5 H Conjugated Bilirubin 0.0 Unconjugated Bilirubin 1.6 H AST 88 H ALT 318 H Alkaline Phosphatase 83 Lactate Dehydrogenase Total Creatine Kinase CK-MB (CK-2) CK-MB (CK-2) Rel Index Troponin I C-Reactive Protein NT-Pro-B Natriuret Pep Total Protein 6.0 L Albumin 3.1 L Globulin 2.9 Albumin/Globulin Ratio 1.1 Triglycerides 103 Cholesterol 103 L LDL Cholesterol, Calc 72 HDL Cholesterol 10 L Lipase Procalcitonin TSH Acetaminophen COVID-19 PCR Hepatitis A IgM Ab Hep Bs Antigen Hep B Core IgM Ab Hepatitis C Antibody Hep C Ab Signal/Cutoff 07/20/19 07/20/19 06:05 06:05 WBC RBC Hgb Hct MCV MCH MCHC RDW Plt Count Neut % (Auto) Lymph % (Auto) [place] % (Auto) Eos % (Auto) Baso % (Auto) Neut # (Auto) Lymph # (Auto) [place] # (Auto) Eos # (Auto) Baso # (Auto) ESR PT 16.9 H INR 1.5 H APTT D-Dimer Sodium Potassium Chloride Carbon Dioxide BUN Creatinine Estimated GFR BUN/Creatinine Ratio Glucose Hemoglobin A1c Lactate Calcium Magnesium Ferritin Total Bilirubin Conjugated Bilirubin Unconjugated Bilirubin AST ALT Alkaline Phosphatase Lactate Dehydrogenase Total Creatine Kinase CK-MB (CK-2) CK-MB (CK-2) Rel Index Troponin I C-Reactive Protein NT-Pro-B Natriuret Pep Total Protein Albumin Globulin Albumin/Globulin Ratio Triglycerides Cholesterol LDL Cholesterol, Calc HDL Cholesterol Lipase Procalcitonin TSH 3.89 Acetaminophen COVID-19 PCR Hepatitis A IgM Ab Hep Bs Antigen Hep B Core IgM Ab Hepatitis C Antibody Hep C Ab Signal/Cutoff Assessment & Plan Assessment & Plan narrative: Kirk Newman is a 29 year old male with PMH of EtOH abuse who presented to the emergency room with 2 weeks of continued abdominal pain and recent swelling, likely sequaelae of new onset cirrhosis and / or cardiomyopathy based on intial imaging. He is admitted for further evaluation of new cirrhosis and cardiomyopathy. 1. Hepatomegaly, present on admission, possible cirrhosis - - hepatomegaly was present on CT imaging from 06/30. Repeat here now showing nodular cirrhosis two weeks later. He further has elevations in his LFTs that were not present two weeks ago upon initial presentation to an outside ED. Ultrasonography again showed hepatomegaly without evidence of nodular appearance. It is unclear based on discordant exam for the patient truly has cirrhosis. His ascites could be from his heart failure as well. There is not enough ascites to do a diagnostic paracentesis. - INR 1.5, Na 136, Tbili 3.0 on admission. MELD of 16 on admission labs, however it is unclear whether he truly has cirrhosis. - etiology most likely is alcohol. However, he is only 29 years old, and though he has been drinking heavily over the past few years there is a possibility of an alternative cause. His AST/ALT ratio is not consistent with alcoholic cirrhosis, and neither are his other labs (normal Plt count, no anemia, etc.). He also has evidence of a concurrent cardiomyopathy and more systemic causes should be considered along with EtOH cirrhosis and dilated cardiomopathy. - [facility] hepatology was consulted in the ER, recommended continued trending of liver function tests, liver enzyme tests and if stable or improving outpatient follow up. - have ordered LKM Ab, DEBORAH, ASMA, hepatitis serologies, HIV. Will obtain RUQ ultrasound with doppler. Further workup as noted below for his dilated cardiomyopathy. -Lasix as noted below under decompensated heart failure, given unclear cirrhosis picture have stop spironolactone. - tylenol level on admission <10. Patient did not endorse taking prescribed [place] upon discharge, instead marijuana use. 2. decompensated heart failure, present on admission, unknown if acute or chronic, systolic - cardiomegaly with bilateral pleural effusions seen on CT imaging and chest XR. - etiologies could include a dilated cardiomyopathy secondary to alcohol, ischemic related (less likely), or systemic illness given concurrent cirrhosis. Appreciate cardiology consultation and will obtain ESR, CRP, ferritin, and lactate. -echocardiogram showing an EF of approximately 10%. Consult to Cardiology today who recommended afterload reduction with lisinopril 2.5, withholding beta-liz, and continue diuresis. Appreciate cardiology evaluation and recommendations. - diuresis as noted above. - EKG with wide complex morphology, LBBB, and early repolarization abnormalities. 3. bilateral pleural effusions, present on admission - likely secondary to volume overload, either from cardiomyopathy or cirrhosis. - CT also showing bilateral ground glass opacities. COVID-19 send by ER. 4. Elevated liver enzymes, acute, present on admission - ALT is much higher that AST pointing towards a liver specific process. Although alcohol is high on the differential this pattern is not consistent with alocholic etiology. Suspect this may all related to congestion from heart failure. AST and ALT improving with diuresis today. - see workup above under cirrhosis - continue to follow along with INR. 5. Possible COVID 19 infection - unlikely based on presentation, lab findings, and other more probable causes of chest imaging findings. - Continue dropley and contact isolation until test results. Code: full, surrogate decision make he states is his mother Dispo: Admitted as inpatient as his stay is expected to exceed two midnights. He is likely to discharge home after adequate diuresis. DVT: Lovenox daily. COVID-19 COVID-19 status: Negative Quality VTE Deep Vein Thrombosis/Pulmonary Embolism Present on Admission: No
[2019-07-20] MEDS: lisinopriL 5 MG TABLET 2.5 MG PO (13:02)
[2019-07-20] MEDS: FUROSEMIDE 40 MG/4 ML VIAL IV (13:03)
[2019-07-20 15:52] LABS: Hepatitis B Surface Antigen NEGATIVE s/c (NEGATIVE)
[2019-07-20 16:11] LABS: HIV 1 & 2 Ab/Ag 4th Gen Combo NEGATIVE (NEGATIVE); Hep C Virus Ab w/Reflex Quant NEGATIVE s/c (NEGATIVE)
--- NOTE | 2019-07-20 16:21 | PM.CN ---
History of Present Illness <RASHAD Jama - Last Filed: 07/20/19 17:18> Consult details Date Patient Seen: 07/20/19 Time Patient Seen: 13:30 Chief complaint: Pancreatitis x2 weeks Reason for consult: Reduced ejection fraction Narrative: Kirk is a pleasant 29-year-old man who presented to the emergency department at [facility] on 07/01/2019 after 2 weeks of continuous, epigastric abdominal pain with associated symptoms included cough, nausea, vomiting and diarrhea as well as bilateral lower extremity swelling. Patient states after binge drinking one night he woke up with abdominal pain that gradually got worse until it reached and 9/10 with a couple of hours. He was ultimately diagnosed with acute pancreatitis and instructed to follow up with his primary care provider, Dr. Power at [facility] in [place], [place]. He was to get established with outpatient cardiology after echocardiogram however patient did not follow up. Patient presented to [facility] emergency department with his mother complaining of mid abdominal discomfort and nausea for the past couple of weeks. He has a history of hypertension treated with amlodipine however he stopped taking in March as he was not aware he was to continue the medication. He denies chest pain but has some shortness of breath at rest as well as dyspnea on exertion. 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 On his off days, he typically drinks 8-10 beers a day and a half of a 5th of vodka. Patient denies any symptoms of withdrawal on his week off. CIWA has been 0 since admission. Meds <RASHAD Jama - Last Filed: 07/20/19 17:18> Home Medications and Allergies Allergies Allergy/AdvReac Type Severity Reaction Status Date / Time No Known Drug Allergies Allergy Verified 07/19/19 12:36 Review of Systems <RASHAD Jama - Last Filed: 07/20/19 17:18> Constitutional Constitutional: Reports system reviewed and no additional complaints, except as documented Cardiovascular Cardiovascular: Reports fast heart rate, Reports leg swelling, Reports shortness of breath, Reports shortness of breath with activity and Reports shortness of breath when lying down Respiratory Respiratory: Reports cough, Reports dyspnea and Reports dyspnea on exertion Gastrointestinal Gastrointestinal: Reports abdominal pain, Reports bloating and Reports early satiety Musculoskeletal Musculoskeletal: Reports system reviewed; no additional complaints, except as documented Integumentary/Breasts Skin/Breast: Reports system reviewed and no additional complaints, except as documented Neurologic Comments: Not as sharp as at his at baseline. Exam <RASHAD Jama - Last Filed: 07/20/19 17:18> Vital Signs (past 8 hours): - 07/20/19 09:14 07/20/19 12:21 07/20/19 12:40 Temperature 98.1 F 98.5 F Pulse Rate 95 H 108 H Respiratory Rate 16 16 Blood Pressure 126/91 H 121/78 Pulse Oximetry 98 97 98 Oxygen Delivery Method Room Air Oxygen Flow Rate 0 Const General: cooperative Orientation: alert and oriented x3 Other: Sluggish responses Resp Auscultation: clear to auscultation bilaterally Other: Speaks in short sentences. Cardio Rate: tachycardic Rhythm: regular rhythm Heart Sounds: S1 normal, S2 normal and murmur (4/6 heard best at the apex) Other: Thready radial pulses; stronger on the right than the left GI Palpation: soft, hepatomegaly and ascites Auscultation: high-pitched sounds Skin General: no rashes or lesions noted Neuro Cognition: abnormal cognition (sluggish responses) Speech: speech normal Extrem General: full ROM Right lower extremity: edema Left lower extremity: edema Objective <RASHAD Jama - Last Filed: 07/20/19 17:18> Labs Result Diagrams: 07/20/19 06:05 07/20/19 06:05 Labs: Laboratory Results - last 24 hr 07/19/19 07/19/19 07/19/19 15:35 15:35 15:35 WBC RBC Hgb Hct MCV MCH MCHC RDW Plt Count Neut % (Auto) Lymph % (Auto) [place] % (Auto) Eos % (Auto) Baso % (Auto) Neut # (Auto) Lymph # (Auto) [place] # (Auto) Eos # (Auto) Baso # (Auto) PT INR Sodium Potassium Chloride Carbon Dioxide BUN Creatinine Estimated GFR BUN/Creatinine Ratio Glucose Hemoglobin A1c Calcium Magnesium Ferritin 93 Total Bilirubin Conjugated Bilirubin Unconjugated Bilirubin AST ALT Alkaline Phosphatase Total Protein Albumin Globulin Albumin/Globulin Ratio Triglycerides Cholesterol LDL Cholesterol, Calc HDL Cholesterol Procalcitonin 0.19 TSH Acetaminophen COVID-19 PCR Hepatitis A IgM Ab Negative Hep Bs Antigen Negative Hep B Core IgM Ab Negative Hepatitis C Antibody <0.1 Hep C Ab Signal/Cutoff Comment HIV 1&2 Ab/P24 Ag 4thGn 07/19/19 07/19/19 07/20/19 15:35 15:35 06:05 WBC 9.2 RBC 4.75 Hgb 13.9 Hct 42.8 MCV 90.2 MCH 29.3 MCHC 32.4 RDW 15.4 H Plt Count 326 Neut % (Auto) 62.9 Lymph % (Auto) 27.3 [place] % (Auto) 7.0 Eos % (Auto) 2.4 Baso % (Auto) 0.4 Neut # (Auto) 5800 Lymph # (Auto) 2500 [place] # (Auto) 600 Eos # (Auto) 200 Baso # (Auto) 0 PT INR Sodium Potassium Chloride Carbon Dioxide BUN Creatinine Estimated GFR BUN/Creatinine Ratio Glucose Hemoglobin A1c Calcium Magnesium Ferritin Total Bilirubin Conjugated Bilirubin Unconjugated Bilirubin AST ALT Alkaline Phosphatase Total Protein Albumin Globulin Albumin/Globulin Ratio Triglycerides Cholesterol LDL Cholesterol, Calc HDL Cholesterol Procalcitonin TSH Acetaminophen < 10 L COVID-19 PCR Not detected Hepatitis A IgM Ab Hep Bs Antigen Hep B Core IgM Ab Hepatitis C Antibody Hep C Ab Signal/Cutoff HIV 1&2 Ab/P24 Ag 4thGn 07/20/19 07/20/19 07/20/19 06:05 06:05 06:05 WBC RBC Hgb Hct MCV MCH MCHC RDW Plt Count Neut % (Auto) Lymph % (Auto) [place] % (Auto) Eos % (Auto) Baso % (Auto) Neut # (Auto) Lymph # (Auto) [place] # (Auto) Eos # (Auto) Baso # (Auto) PT INR Sodium 136 L Potassium 3.9 Chloride 105 Carbon Dioxide 22 BUN 20 Creatinine 1.07 Estimated GFR > 60.0 BUN/Creatinine Ratio 18.7 Glucose 94 Hemoglobin A1c 5.5 Calcium 8.2 L Magnesium 2.2 Ferritin Total Bilirubin 2.5 H Conjugated Bilirubin 0.0 Unconjugated Bilirubin 1.6 H AST 88 H ALT 318 H Alkaline Phosphatase 83 Total Protein 6.0 L Albumin 3.1 L Globulin 2.9 Albumin/Globulin Ratio 1.1 Triglycerides 103 Cholesterol 103 L LDL Cholesterol, Calc 72 HDL Cholesterol 10 L Procalcitonin TSH 3.89 Acetaminophen COVID-19 PCR Hepatitis A IgM Ab Hep Bs Antigen Hep B Core IgM Ab Hepatitis C Antibody Hep C Ab Signal/Cutoff HIV 1&2 Ab/P24 Ag 4thGn 07/20/19 07/20/19 06:05 06:05 WBC RBC Hgb Hct MCV MCH MCHC RDW Plt Count Neut % (Auto) Lymph % (Auto) [place] % (Auto) Eos % (Auto) Baso % (Auto) Neut # (Auto) Lymph # (Auto) [place] # (Auto) Eos # (Auto) Baso # (Auto) PT 16.9 H INR 1.5 H Sodium Potassium Chloride Carbon Dioxide BUN Creatinine Estimated GFR BUN/Creatinine Ratio Glucose Hemoglobin A1c Calcium Magnesium Ferritin Total Bilirubin Conjugated Bilirubin Unconjugated Bilirubin AST ALT Alkaline Phosphatase Total Protein Albumin Globulin Albumin/Globulin Ratio Triglycerides Cholesterol LDL Cholesterol, Calc HDL Cholesterol Procalcitonin TSH Acetaminophen COVID-19 PCR Hepatitis A IgM Ab Hep Bs Antigen Negative Hep B Core IgM Ab Hepatitis C Antibody Negative Hep C Ab Signal/Cutoff HIV 1&2 Ab/P24 Ag 4thGn Negative Assessment & Plan <RASHAD Jama - Last Filed: 07/20/19 17:18> Assessment & Plan narrative: Kirk is a pleasant 29-year-old male with 2 weeks of continuous abdominal pain, nausea, vomiting and diarrhea, cough, shortness of breath, dyspnea on exertion, bilateral lower extremity swelling, PND, orthopnea and rapid heart rate. 1. New onset cirrhosis, acute with ascites present on admission. Patient has only drank heavily for the past 2-3 years. INR elevated at 1.5. Albumin is low at 3.1. Platelets are within normal limits. Management by hospitalist. 2. HFrEF: Etiology is unclear at this point. Ejection fraction is 10% by transthoracic echocardiogram. LV wall is thin. Functional mitral regurgiation. -aggressive diuresis with IV furosemide 40 mg b.i.d. to t.i.d. close monitoring of electrolytes; goal of 3-5 L net negative -strict I's and O's -afterload reduction with lisinopril 2.5 mg daily -hold off on beta-liz; heart rate should normalize with adequate diuresis -ESR, CRP, ferritin, lactic acid -close outpatient cardiology follow-up 3. Left bundle-branch block. Some dyssynchronous see noted on echocardiography. ECG suggestive of severe cardiomyopathy rather than true left ventricular hypertrophy given voltage of S waves in precordial leads compared to limb leads. 4. Bilateral pleural effusions, present on admission: Patient is clearly volume overloaded with a CVP of 20 cm. Aggressive diuresis as above. COVID-19 PCR pending. 5. Elevated liver enzymes: ALT/AST ratio not consistent with alcoholic etiology. Patient has only been drinking heavily for the past 2-3 years. Case discussed wtih Dr. Oviedo who also saw and examined the patient. <Ishaan Oviedo MD - Last Filed: 07/20/19 17:28> Assessment & Plan narrative: I saw and examined the patient myself and discussed the above with RASHAD Jama. I agree with the above note that reflects our joint effort in providing care for this delightful, unfortunate gentleman. He is significantly volume overloaded with JVP of 20, ascites, lower extremity edema and needs to remain on IV loop diuretic at least 48 more hours before transitioning to oral with goal of net negative ~ 3L per day for at least 10 more litres. His thready pulse and variable stroke volume are in line with tachycardia and indicate significant low cardiac output which is maintained by compensatory sinus tachycardia and impending cardiogenic shock. The transaminase elevation is related to hepatic congestion from venous congestion. He has no evidence for cirrhosis including no thrombocytopenia or spider angiomas and no anemia but has evidence of impaired synthetic function including low albumin and elevated INR. Work up for nonischemic cardiomyopathy will follow.
[2019-07-20] MEDS: ONDANSETRON 4 MG/2 ML INJ IV (16:50)
[2019-07-20 17:08] LABS: Lactate (Lactic Acid) 2.7 mmol/L (0.7-2.1)
[2019-07-20 17:10] LABS: C-Reactive Protein Quant 4.4 mg/dL (<1.0)
[2019-07-20 17:14] LABS: Erythrocyte Sedimentation Rate 1 MM/HR (0-15)
[2019-07-20 18:50] LABS: Reflexed Lactate in 2 Hours Y
[2019-07-20 19:21] LABS: Lactate 2HR (Lactic Acid Rflx) 1.5 mmol/L (0.7-2.1)
[2019-07-21] VITALS (14 sets, daily range): BP systolic 96–113; BP diastolic 59–85; PULSE 89–104; RESP 16–17; TEMP 36.2–37.2; O2SAT 93–98
[2019-07-21] MEDS: OXYCODONE IR 5 MG TABLET PO ×5 (00:50→20:33)
[2019-07-21 01:13] LABS: Hepatitis B Core Antibody Negative (Negative)
[2019-07-21 02:07] LABS: Hepatitis B Surf Ab Qualitativ Non Reactive (.)
[2019-07-21 05:43] LABS: INR 1.5 (0.9-1.3); Prothrombin Time 17.1 SECONDS (10.1-12.7)
[2019-07-21 05:45] LABS: Lactate (Lactic Acid) 1.2 mmol/L (0.7-2.1)
[2019-07-21 05:47] LABS: Alanine Aminotransferase 254 IU/L (<50); Alkaline Phosphatase 76 U/L (38-126); Aspartate Aminotransferase 55 IU/L (17-59); BUN Creatinine Ratio 19.2 (6-22); Bilirubin Total 3.1 mg/dL (0.2-1.3); Blood Urea Nitrogen 20 mg/dL (9-20); Calcium 8.3 mg/dL (8.4-10.2); Carbon Dioxide 23 mmol/L (22-32); Chloride 102 mmol/L (98-107); Estimated Glomerular Filt Rate > 60.0 mL/min (>60); Globulin 3.1 g/dL (1.7-4.1); Glucose 85 mg/dL (70-100); HEMOLYSIS < 15 (0-50); Magnesium 2.1 mg/dL (1.6-2.3); Potassium 3.9 mmol/L (3.4-5.1); Sodium 132 mmol/L (137-145); Total Protein 6.1 g/dL (6.3-8.2)
[2019-07-21 05:49] LABS: C-Reactive Protein Quant 4.7 mg/dL (<1.0)
[2019-07-21 05:56] LABS: Add Manual Diff / Slide Review NO; Basophils Absolute Auto 100 /uL (0-100); Basophils Percent Auto 0.5 % (0-2); Eosinophils Absolute Auto 100 /uL (0-450); Eosinophils Percent Auto 1.4 % (2-4); Hematocrit 43.2 % (41-53); Lymphocytes Absolute Auto 2200 /uL (1100-4500); Lymphocytes Percent Auto 22.6 % (25-40); Mean Corpuscular HGB Conc 32.4 % (30-36); Mean Corpuscular Volume 89.5 fL (80-100); Monocytes Absolute Auto 900 /uL (0-900); Monocytes Percent Auto 9.3 % (3-14); Neutrophils Absolute Auto 6400 /uL (1500-7000); Neutrophils Percent Auto 66.2 % (50-75); Platelet Count 305 X10^3/uL (150-400); Red Blood Cell Count 4.82 X10^6/uL (4.5-5.9); Red Cell Distribution Width 14.9 % (11.6-14.8); White Blood Cell Count 9.6 X10^3/uL (4.5-11.0)
[2019-07-21 06:12] LABS: Erythrocyte Sedimentation Rate 3 MM/HR (0-15)
[2019-07-21 06:22] LABS: Ferritin 82 ng/mL (18-464)
--- NOTE | 2019-07-21 08:10 | RT ---
Patient declined smoking cessation. He tells me that he has been here for three days so he has pretty much quit. I asked him if he would like the smoking cessation materials and the quit line number. He declined.
[2019-07-21] MEDS: lisinopriL 5 MG TABLET 2.5 MG PO (08:33)
[2019-07-21] MEDS: ENOXAPARIN 40 MG/0.4 ML SYRINGE SUBCUT (08:34)
[2019-07-21] MEDS: FUROSEMIDE 40 MG/4 ML VIAL IV (09:30)
[2019-07-21] MEDS: FUROSEMIDE 20 MG/2 ML VIAL IV (13:37)
[2019-07-21] MEDS: DOCUSATE 100 MG CAPSULE 200 MG PO ×2 (13:37→20:33)
[2019-07-21 13:47] LABS: Bacteria Urine None Seen; RBC Urine None Seen (0-5/HPF); WBC Urine None Seen (0-5/HPF)
[2019-07-21 13:54] LABS: Appearance Urine UA CLEAR; Bilirubin Urine UA NEGATIVE (NEGATIVE); Color Urine UA YELLOW; Glucose Urine UA NEGATIVE (Negative); Ketones Urine UA NEGATIVE (NEGATIVE); Leukocyte Esterase Urine UA NEGATIVE (NEGATIVE); Nitrite Urine UA NEGATIVE (Negative); Occult Blood Urine UA NEGATIVE (Negative); Protein Urine UA NEGATIVE (Negative); pH Urine UA 5.5 (4.5-8.0)
[2019-07-21 13:56] LABS: Culture Indicated Urine Cult Not Indicated; Urine Comments Microscopic Normal
--- NOTE | 2019-07-21 14:32 | PM.PN.1 ---
Subjective <RASHAD Jama - Last Filed: 07/21/19 15:01> Subjective Date Patient Seen: 07/21/19 Time Patient Seen: 12:35 Interval history: This is a delightful 29-year-old male with new dilated cardiomyopathy; EF 10% by transthoracic echo. After admission he was started on lisinopril 2.5 mg daily as well as furosemide 40 mg IV b.i.d. with a goal of 10 L diuresis prior to discharge. Kirk and did well overnight. He was able to sleep without issue. He has been ambulating independently in his room. He reports feeling much better today. He is breathing easier and conversation although still becomes short of breath with full sentences. He reports he has not had a drink in over 2 weeks and has no issue giving up drinking altogether. Exam <RASHAD Jama - Last Filed: 07/21/19 15:01> Vital Signs (past 8 hours): - 07/21/19 08:10 07/21/19 08:31 07/21/19 08:55 Temperature 97.1 F L Pulse Rate 90 96 H Respiratory Rate 16 Blood Pressure 109/85 Pulse Oximetry 98 97 97 07/21/19 12:57 07/21/19 13:02 Temperature 97.4 F L Pulse Rate 96 H Respiratory Rate 16 Blood Pressure 99/71 Pulse Oximetry 95 94 Oxygen Delivery Method Room Air Oxygen Flow Rate 0 Const General: cooperative Nutritional Appearance: well nourished Orientation: alert and oriented x3 HENMT Head: normocephalic and atraumatic Eyes Sclera: scleral abnormality bilaterally (Bilateral jaundice) other Neck Neck: JVD Chest Chest: normal inspection of the chest and normal palpation of entire chest wall Resp Auscultation: clear to auscultation bilaterally Cardio Rhythm: regular rhythm Heart Sounds: S1 normal, S2 normal and murmur Pulses: radial pulses present (Thready radial pulses bilaterally) and dorsalis pedis present GI Palpation: soft and hepatomegaly Auscultation: normal bowel sounds Skin General: no rashes or lesions noted (No spider hemangioma) Extrem Right lower extremity: edema Left lower extremity: edema Psych Mental Status: mental status grossly normal Objective <RASHAD Jama Last Filed: 07/21/19 15:01> Labs Result Diagrams: 07/21/19 05:00 07/21/19 05:00 Labs: Laboratory Results - last 24 hr 07/20/19 07/20/19 07/20/19 06:05 06:05 06:05 WBC RBC Hgb Hct MCV MCH MCHC RDW Plt Count Neut % (Auto) Lymph % (Auto) [place] % (Auto) Eos % (Auto) Baso % (Auto) Neut # (Auto) Lymph # (Auto) [place] # (Auto) Eos # (Auto) Baso # (Auto) ESR PT INR Sodium Potassium Chloride Carbon Dioxide BUN Creatinine Estimated GFR BUN/Creatinine Ratio Glucose Lactate Calcium Magnesium Ferritin Total Bilirubin Conjugated Bilirubin Unconjugated Bilirubin AST ALT Alkaline Phosphatase C-Reactive Protein Total Protein Albumin Globulin Albumin/Globulin Ratio Urine Color Urine Appearance Urine pH Ur Specific [place] Urine Protein Urine Glucose (UA) Urine Ketones Urine Occult Blood Urine Nitrate Urine Bilirubin Urine Urobilinogen Ur Leukocyte Esterase Urine RBC Urine WBC Urine Bacteria Ur Culture Indicated? Micro UA Comment Hep Bs Antigen Negative Hep Bs Antibody Non reactive Hep B Core Total Ab Negative Hepatitis C Antibody Negative HIV 1&2 Ab/P24 Ag 4thGn Negative 07/20/19 07/20/19 07/20/19 16:44 16:44 16:44 WBC RBC Hgb Hct MCV MCH MCHC RDW Plt Count Neut % (Auto) Lymph % (Auto) [place] % (Auto) Eos % (Auto) Baso % (Auto) Neut # (Auto) Lymph # (Auto) [place] # (Auto) Eos # (Auto) Baso # (Auto) ESR 1 PT INR Sodium Potassium Chloride Carbon Dioxide BUN Creatinine Estimated GFR BUN/Creatinine Ratio Glucose Lactate 2.7 H Calcium Magnesium Ferritin Total Bilirubin Conjugated Bilirubin Unconjugated Bilirubin AST ALT Alkaline Phosphatase C-Reactive Protein 4.4 H Total Protein Albumin Globulin Albumin/Globulin Ratio Urine Color Urine Appearance Urine pH Ur Specific [place] Urine Protein Urine Glucose (UA) Urine Ketones Urine Occult Blood Urine Nitrate Urine Bilirubin Urine Urobilinogen Ur Leukocyte Esterase Urine RBC Urine WBC Urine Bacteria Ur Culture Indicated? Micro UA Comment Hep Bs Antigen Hep Bs Antibody Hep B Core Total Ab Hepatitis C Antibody HIV 1&2 Ab/P24 Ag 4thGn 07/20/19 07/21/19 07/21/19 19:07 05:00 05:00 WBC 9.6 RBC 4.82 Hgb 14.0 Hct 43.2 MCV 89.5 MCH 29.0 MCHC 32.4 RDW 14.9 H Plt Count 305 Neut % (Auto) 66.2 Lymph % (Auto) 22.6 L [place] % (Auto) 9.3 Eos % (Auto) 1.4 L Baso % (Auto) 0.5 Neut # (Auto) 6400 Lymph # (Auto) 2200 [place] # (Auto) 900 Eos # (Auto) 100 Baso # (Auto) 100 ESR PT INR Sodium 132 L Potassium 3.9 Chloride 102 Carbon Dioxide 23 BUN 20 Creatinine 1.04 Estimated GFR > 60.0 BUN/Creatinine Ratio 19.2 Glucose 85 Lactate 1.5 Calcium 8.3 L Magnesium 2.1 Ferritin Total Bilirubin 3.1 H Conjugated Bilirubin 0.0 Unconjugated Bilirubin 2.0 H AST 55 ALT 254 H Alkaline Phosphatase 76 C-Reactive Protein Total Protein 6.1 L Albumin 3.0 L Globulin 3.1 Albumin/Globulin Ratio 1.0 Urine Color Urine Appearance Urine pH Ur Specific [place] Urine Protein Urine Glucose (UA) Urine Ketones Urine Occult Blood Urine Nitrate Urine Bilirubin Urine Urobilinogen Ur Leukocyte Esterase Urine RBC Urine WBC Urine Bacteria Ur Culture Indicated? Micro UA Comment Hep Bs Antigen Hep Bs Antibody Hep B Core Total Ab Hepatitis C Antibody HIV 1&2 Ab/P24 Ag 4thGn 07/21/19 07/21/19 07/21/19 05:00 05:00 05:00 WBC RBC Hgb Hct MCV MCH MCHC RDW Plt Count Neut % (Auto) Lymph % (Auto) [place] % (Auto) Eos % (Auto) Baso % (Auto) Neut # (Auto) Lymph # (Auto) [place] # (Auto) Eos # (Auto) Baso # (Auto) ESR 3 D PT 17.1 H INR 1.5 H Sodium Potassium Chloride Carbon Dioxide BUN Creatinine Estimated GFR BUN/Creatinine Ratio Glucose Lactate Calcium Magnesium Ferritin 82 Total Bilirubin Conjugated Bilirubin Unconjugated Bilirubin AST ALT Alkaline Phosphatase C-Reactive Protein 4.7 H Total Protein Albumin Globulin Albumin/Globulin Ratio Urine Color Urine Appearance Urine pH Ur Specific [place] Urine Protein Urine Glucose (UA) Urine Ketones Urine Occult Blood Urine Nitrate Urine Bilirubin Urine Urobilinogen Ur Leukocyte Esterase Urine RBC Urine WBC Urine Bacteria Ur Culture Indicated? Micro UA Comment Hep Bs Antigen Hep Bs Antibody Hep B Core Total Ab Hepatitis C Antibody HIV 1&2 Ab/P24 Ag 4thGn 07/21/19 07/21/19 05:00 13:45 WBC RBC Hgb Hct MCV MCH MCHC RDW Plt Count Neut % (Auto) Lymph % (Auto) [place] % (Auto) Eos % (Auto) Baso % (Auto) Neut # (Auto) Lymph # (Auto) [place] # (Auto) Eos # (Auto) Baso # (Auto) ESR PT INR Sodium Potassium Chloride Carbon Dioxide BUN Creatinine Estimated GFR BUN/Creatinine Ratio Glucose Lactate 1.2 Calcium Magnesium Ferritin Total Bilirubin Conjugated Bilirubin Unconjugated Bilirubin AST ALT Alkaline Phosphatase C-Reactive Protein Total Protein Albumin Globulin Albumin/Globulin Ratio Urine Color Yellow Urine Appearance Clear Urine pH 5.5 Ur Specific [place] 1.020 Urine Protein Negative Urine Glucose (UA) Negative Urine Ketones Negative Urine Occult Blood Negative Urine Nitrate Negative Urine Bilirubin Negative Urine Urobilinogen 1.0 Ur Leukocyte Esterase Negative Urine RBC None seen Urine WBC None seen Urine Bacteria None seen Ur Culture Indicated? Cult not indicated Micro UA Comment Microscopic normal Hep Bs Antigen Hep Bs Antibody Hep B Core Total Ab Hepatitis C Antibody HIV 1&2 Ab/P24 Ag 4thGn Assessment & Plan <RASHAD Jama - Last Filed: 07/21/19 15:01> Assessment & Plan narrative: Kirk is a pleasant 29-year-old male with 2 weeks of continuous abdominal pain, nausea, vomiting and diarrhea, cough, shortness of breath, dyspnea on exertion, bilateral lower extremity swelling, PND, orthopnea and rapid heart rate. 1. Pancreatitis: Management per hospitalist. 2. HFrEF: Etiology is unclear at this point, likely alcohol induced. Ejection fraction is 10% by transthoracic echocardiogram. LV wall is thin. Functional mitral regurgiation. -aggressive diuresis increase furosemide to 60 mg IV b.i.d. goal of 10 L net negative prior to discharge; patient is net -2150 thus far. -strict I's and O's; 1500 mL fluid restriction in place starting today. Admission weight 86 kg, weight today 88 kg -afterload reduction with lisinopril 2.5 mg daily -hold off on beta-liz for now -start digoxin 250 mcg daily x4 doses than 125 mcg daily. Digoxin level in 1 week. -start spironolactone 12.5 mg daily -rheumatoid factor, DEBORAH pending -urine toxicity screen negative -close outpatient cardiology follow-up 3. Left bundle-branch block. Some dyssynchronous see noted on echocardiography. ECG suggestive of severe cardiomyopathy rather than true left ventricular hypertrophy given voltage of S waves in precordial leads compared to limb leads. He will continue to follow and referred to electrophysiology as needed 4. Bilateral pleural effusions, present on admission. Aggressive diuresis as above. COVID-19 PCR pending. 5. Elevated liver enzymes: ALT/AST. Patient has only been drinking heavily for the past 2-3 years. Management per hospitalist. Case discussed with Dr. Lau who also saw and examined the patient. <Hemalatha Lau MD - Last Filed: 07/21/19 17:06> Assessment & Plan narrative: I saw the patient with Sascha today. Plan is to start spironolactone 12.5 mg daily. Lasix increased to 60 mg IV every 12 hours. We will also start digoxin. Consider 0.25 mg every 6 hours for total 4 doses followed by 0.125 mg daily. Check dig level in one week. Patient is very young. I will also recommend genetic testing for familial dilated cardiomyopathy however patient denies any family history of dilated cardiomyopathy. However patient consider cardiac MRI and if it suggests possibility of ischemia, consider left heart catheterization as well. Keep close watch on electrolytes. Quality <RASHAD Jama - Last Filed: 07/21/19 15:01> VTE Deep Vein Thrombosis/Pulmonary Embolism Present on Admission: No
--- NOTE | 2019-07-21 15:14 | PM.PN.1 ---
Subjective Subjective Date Patient Seen: 07/21/19 Time Patient Seen: 13:30 Interval history: Kirk Newman is a 29 year old male with PMH of EtOH abuse who presented to the emergency room with 2 weeks of continued abdominal pain and recent lower extremity and abdominal swelling. His echocardiogram today showed an EF between 10 and 15%, which is a new new diagnosis for him. His abdominal should ultrasound showed minimal free fluid, hepatomegaly, but no concern for thrombosis or cirrhosis. He states that he feels somewhat better, but still little bit bloated. He states his breathing is much improved today. Cardiology again saw the patient today and increased his diuresis and started the patient on digoxin. He is being digoxin loaded Exam Vital Signs (past 8 hours): - 07/21/19 08:10 07/21/19 08:31 07/21/19 08:55 Temperature 97.1 F L Pulse Rate 90 96 H Respiratory Rate 16 Blood Pressure 109/85 Pulse Oximetry 98 97 97 07/21/19 12:57 07/21/19 13:02 Temperature 97.4 F L Pulse Rate 96 H Respiratory Rate 16 Blood Pressure 99/71 Pulse Oximetry 95 94 Oxygen Delivery Method Room Air Oxygen Flow Rate 0 Narrative Exam Narrative: GENERAL APPEARANCE: Well developed, well nourished, in no acute distress. SKIN: Inspection of the skin reveals, ulcerations or petechiae. There is a rash over his abdomen that is near skin colored, only on his left side, and slightly raised, with small lesions that convalesce. HEENT: Normocephalic atraumatic, extraocular muscles are intact, oropharynx is clear and mucous membranes are moist, neck is supple without adenopathy NECK: Supple and symmetric. There was no thyroid enlargement, and no tenderness, or masses were felt. CHEST: Normal AP diameter and normal contour without any kyphoscoliosis. LUNGS: Auscultation of the lungs revealed no wheezes. There are rales in the bilateral lung bases and breath sounds are slightly diminished over the bases as well. He is not in respiratory distress. CARDIOVASCULAR: Regular rate and rhythm, 3+ systolic murmur. No rubs or gallops. ABDOMEN: Soft and nontender with normal bowel sounds. No fluid wave today not overtly distended on appearance. MUSCULOSKELETAL: There was no tenderness or effusions noted. Muscle strength and tone were normal. EXTREMITIES: No cyanosis, clubbing. There is pitting edema in his bilateral lower extremities. NEUROLOGIC: Alert and oriented x 3. Normal affect. Gait was normal. Strength is +5/5 in the Upper Extremities and Lower Extremities Bilaterally. Sensation to touch was normal. Objective Labs Result Diagrams: 07/21/19 05:00 07/21/19 05:00 Labs: Laboratory Results - last 24 hr 07/20/19 07/20/19 07/20/19 06:05 06:05 06:05 WBC RBC Hgb Hct MCV MCH MCHC RDW Plt Count Neut % (Auto) Lymph % (Auto) [place] % (Auto) Eos % (Auto) Baso % (Auto) Neut # (Auto) Lymph # (Auto) [place] # (Auto) Eos # (Auto) Baso # (Auto) ESR PT INR Sodium Potassium Chloride Carbon Dioxide BUN Creatinine Estimated GFR BUN/Creatinine Ratio Glucose Lactate Calcium Magnesium Ferritin Total Bilirubin Conjugated Bilirubin Unconjugated Bilirubin AST ALT Alkaline Phosphatase C-Reactive Protein Total Protein Albumin Globulin Albumin/Globulin Ratio Urine Color Urine Appearance Urine pH Ur Specific [place] Urine Protein Urine Glucose (UA) Urine Ketones Urine Occult Blood Urine Nitrate Urine Bilirubin Urine Urobilinogen Ur Leukocyte Esterase Urine RBC Urine WBC Urine Bacteria Ur Culture Indicated? Micro UA Comment Hep Bs Antigen Negative Hep Bs Antibody Non reactive Hep B Core Total Ab Negative Hepatitis C Antibody Negative HIV 1&2 Ab/P24 Ag 4thGn Negative 07/20/19 07/20/19 07/20/19 16:44 16:44 16:44 WBC RBC Hgb Hct MCV MCH MCHC RDW Plt Count Neut % (Auto) Lymph % (Auto) [place] % (Auto) Eos % (Auto) Baso % (Auto) Neut # (Auto) Lymph # (Auto) [place] # (Auto) Eos # (Auto) Baso # (Auto) ESR 1 PT INR Sodium Potassium Chloride Carbon Dioxide BUN Creatinine Estimated GFR BUN/Creatinine Ratio Glucose Lactate 2.7 H Calcium Magnesium Ferritin Total Bilirubin Conjugated Bilirubin Unconjugated Bilirubin AST ALT Alkaline Phosphatase C-Reactive Protein 4.4 H Total Protein Albumin Globulin Albumin/Globulin Ratio Urine Color Urine Appearance Urine pH Ur Specific [place] Urine Protein Urine Glucose (UA) Urine Ketones Urine Occult Blood Urine Nitrate Urine Bilirubin Urine Urobilinogen Ur Leukocyte Esterase Urine RBC Urine WBC Urine Bacteria Ur Culture Indicated? Micro UA Comment Hep Bs Antigen Hep Bs Antibody Hep B Core Total Ab Hepatitis C Antibody HIV 1&2 Ab/P24 Ag 4thGn 07/20/19 07/21/19 07/21/19 19:07 05:00 05:00 WBC 9.6 RBC 4.82 Hgb 14.0 Hct 43.2 MCV 89.5 MCH 29.0 MCHC 32.4 RDW 14.9 H Plt Count 305 Neut % (Auto) 66.2 Lymph % (Auto) 22.6 L [place] % (Auto) 9.3 Eos % (Auto) 1.4 L Baso % (Auto) 0.5 Neut # (Auto) 6400 Lymph # (Auto) 2200 [place] # (Auto) 900 Eos # (Auto) 100 Baso # (Auto) 100 ESR PT INR Sodium 132 L Potassium 3.9 Chloride 102 Carbon Dioxide 23 BUN 20 Creatinine 1.04 Estimated GFR > 60.0 BUN/Creatinine Ratio 19.2 Glucose 85 Lactate 1.5 Calcium 8.3 L Magnesium 2.1 Ferritin Total Bilirubin 3.1 H Conjugated Bilirubin 0.0 Unconjugated Bilirubin 2.0 H AST 55 ALT 254 H Alkaline Phosphatase 76 C-Reactive Protein Total Protein 6.1 L Albumin 3.0 L Globulin 3.1 Albumin/Globulin Ratio 1.0 Urine Color Urine Appearance Urine pH Ur Specific [place] Urine Protein Urine Glucose (UA) Urine Ketones Urine Occult Blood Urine Nitrate Urine Bilirubin Urine Urobilinogen Ur Leukocyte Esterase Urine RBC Urine WBC Urine Bacteria Ur Culture Indicated? Micro UA Comment Hep Bs Antigen Hep Bs Antibody Hep B Core Total Ab Hepatitis C Antibody HIV 1&2 Ab/P24 Ag 4thGn 07/21/19 07/21/19 07/21/19 05:00 05:00 05:00 WBC RBC Hgb Hct MCV MCH MCHC RDW Plt Count Neut % (Auto) Lymph % (Auto) [place] % (Auto) Eos % (Auto) Baso % (Auto) Neut # (Auto) Lymph # (Auto) [place] # (Auto) Eos # (Auto) Baso # (Auto) ESR 3 D PT 17.1 H INR 1.5 H Sodium Potassium Chloride Carbon Dioxide BUN Creatinine Estimated GFR BUN/Creatinine Ratio Glucose Lactate Calcium Magnesium Ferritin 82 Total Bilirubin Conjugated Bilirubin Unconjugated Bilirubin AST ALT Alkaline Phosphatase C-Reactive Protein 4.7 H Total Protein Albumin Globulin Albumin/Globulin Ratio Urine Color Urine Appearance Urine pH Ur Specific [place] Urine Protein Urine Glucose (UA) Urine Ketones Urine Occult Blood Urine Nitrate Urine Bilirubin Urine Urobilinogen Ur Leukocyte Esterase Urine RBC Urine WBC Urine Bacteria Ur Culture Indicated? Micro UA Comment Hep Bs Antigen Hep Bs Antibody Hep B Core Total Ab Hepatitis C Antibody HIV 1&2 Ab/P24 Ag 4thGn 07/21/19 07/21/19 05:00 13:45 WBC RBC Hgb Hct MCV MCH MCHC RDW Plt Count Neut % (Auto) Lymph % (Auto) [place] % (Auto) Eos % (Auto) Baso % (Auto) Neut # (Auto) Lymph # (Auto) [place] # (Auto) Eos # (Auto) Baso # (Auto) ESR PT INR Sodium Potassium Chloride Carbon Dioxide BUN Creatinine Estimated GFR BUN/Creatinine Ratio Glucose Lactate 1.2 Calcium Magnesium Ferritin Total Bilirubin Conjugated Bilirubin Unconjugated Bilirubin AST ALT Alkaline Phosphatase C-Reactive Protein Total Protein Albumin Globulin Albumin/Globulin Ratio Urine Color Yellow Urine Appearance Clear Urine pH 5.5 Ur Specific [place] 1.020 Urine Protein Negative Urine Glucose (UA) Negative Urine Ketones Negative Urine Occult Blood Negative Urine Nitrate Negative Urine Bilirubin Negative Urine Urobilinogen 1.0 Ur Leukocyte Esterase Negative Urine RBC None seen Urine WBC None seen Urine Bacteria None seen Ur Culture Indicated? Cult not indicated Micro UA Comment Microscopic normal Hep Bs Antigen Hep Bs Antibody Hep B Core Total Ab Hepatitis C Antibody HIV 1&2 Ab/P24 Ag 4thGn Assessment & Plan Assessment & Plan narrative: Kirk Newman is a 29 year old male with PMH of EtOH abuse who presented to the emergency room with 2 weeks of continued abdominal pain and recent swelling, likely sequaelae of new onset cirrhosis and / or cardiomyopathy based on intial imaging. He is admitted for further evaluation of new cirrhosis and cardiomyopathy. 1. Hepatomegaly, present on admission, possible cirrhosis - - hepatomegaly was present on CT imaging from 06/30. Repeat here now showing nodular cirrhosis two weeks later. He further has elevations in his LFTs that were not present two weeks ago upon initial presentation to an outside ED. Ultrasonography again showed hepatomegaly without evidence of nodular appearance. It is unclear based on discordant exam for the patient truly has cirrhosis. His ascites could be from his heart failure as well. There is not enough ascites to do a diagnostic paracentesis. - INR 1.5, Na 136, Tbili 3.0 on admission. MELD of 16 on admission labs, however it appears he does not have cirrhosis at this time. - etiology most likely is alcohol. However, he is only 29 years old, and though he has been drinking heavily over the past few years there is a possibility of an alternative cause. His AST/ALT ratio is not consistent with alcoholic cirrhosis, and neither are his other labs (normal Plt count, no anemia, etc.). He also has evidence of a concurrent cardiomyopathy and more systemic causes should be considered along with EtOH cirrhosis and dilated cardiomopathy. - [facility] hepatology was consulted in the ER, recommended continued trending of liver function tests, liver enzyme tests and if stable or improving outpatient follow up. His liver enzymes are improving with diuresis. - have ordered LKM Ab, DEBORAH, ASMA, hepatitis serologies negative, HIV negative. RUQ ultrasound as noted above. Further workup as noted below for his dilated cardiomyopathy. -Lasix as noted below under decompensated heart failure, given unclear cirrhosis picture have stop spironolactone. - tylenol level on admission <10. Patient did not endorse taking prescribed [place] upon discharge, instead marijuana use. 2. Newly diagnosed decompensated systolic heart failure with an EF of 10%, present on admission. - cardiomegaly with bilateral pleural effusions seen on CT imaging and chest XR. - Appreciate cardiology consultation. CRP 4.7, LA 1.2, ESR 3. RF negative. DEBORAH pending. -echocardiogram showing an EF of approximately 10%. Appreciate cardiology recommendations. Started afterload reduction with lisinopril 2.5, withholding beta-lzi, and continue diuresis. Appreciate cardiology evaluation and recommendations. - diuresis as noted above. - EKG with wide complex morphology, LBBB, and early repolarization abnormalities. - patient is being loaded with digoxin per cardiology. 3. bilateral pleural effusions, present on admission - likely secondary to volume overload, either from cardiomyopathy or cirrhosis. - CT also showing bilateral ground glass opacities. COVID-19 send by ER. 4. Elevated liver enzymes, acute, present on admission - ALT is much higher that AST pointing towards a liver specific process. Although alcohol is high on the differential this pattern is not consistent with alocholic etiology. Suspect this may all related to congestion from heart failure. AST and ALT improving with diuresis today. - see workup above under hepatomegaly - continue to follow along with INR. 5. Possible COVID 19 infection ruled out Code: full, surrogate decision make he states is his mother Dispo: Admitted as inpatient as his stay is expected to exceed two midnights. He is likely to discharge home after adequate diuresis. DVT: Lovenox daily. COVID-19 COVID-19 status: Negative Quality VTE Deep Vein Thrombosis/Pulmonary Embolism Present on Admission: No
[2019-07-21 15:31] LABS: Rheumatoid Factor < 8.6 IU/mL (<12.0)
[2019-07-21] MEDS: DIGOXIN 0.25 MG TABLET PO (16:41)
[2019-07-21] MEDS: FUROSEMIDE 100 MG/10 ML VIAL 60 MG IV (16:43)
--- NOTE | 2019-07-21 16:43 | CM.DANOTE ---
DCP/Assessment: Reviewed chart. Patient is a 29yr old male admitted to [facility] with pancreatitis. PCP is Dr. Joon Power in [place] and Primary payor is [employer] [place]. Met with patient explained CM/SW role. Patient alert and oriented at time of visit. Patient reports that he is currently from his spouse and lives with his girlfriend in [place]. Patient shares custody of children with spouse/Alcira. Patient reports that he works for [employer] x5yrs. Patient currently off due to illness and plans to apply for unemployment or research other resources available to him through Human Resource office. Patient admits to binge drinking for last 3yrs. Patient works several days straight and then is off for several days. During the time off he drinks beer. Patient denies needing any ETOH outpatient or inpatient resources. Patient reports that he has not had a drink in weeks. Patient does not anticipate that quitting will be an issue. Patient offered resources and declines at this time. P: Home when stable. Patient reports family can pick him up. Patient completely I in all ADL's. ROSA Cid Discharge Planning/Care Management CM Discharge Assessment Start: 07/21/19 16:36 Freq: Status: Active Protocol: Document 07/21/19 16:36 KJS (Rec: 07/21/19 16:43 KJS [id number]) Discharge Planning Assessment Assigned Risk Intern ROSA Cid Contact Information Joyce Cotton (Mother) [phone] Advance Directives? No History Provided By Patient,Medical Record Prior Living Arrangements House Household Members children Type of transporation used prior to Drives own vehicle admit Independent with ADL's Yes Is patient alert and oriented? Yes Barriers to Discharge No Discharge Plan Home Transportation Arrangement Family to provide transport. Whiteboard Updated in Patient Room with Yes name and ext. # of Risk Intern Review Status In Process Next Review Type Continued Stay Review
[2019-07-21 17:07] LABS: ANA Screen, IFA Negative (.)
[2019-07-22] VITALS (12 sets, daily range): BP systolic 96–119; BP diastolic 59–85; PULSE 84–96; RESP 16–18; TEMP 35.9–36.6; O2SAT 92–98
[2019-07-22] MEDS: DIGOXIN 0.25 MG TABLET PO ×4 (00:38→18:06)
[2019-07-22] MEDS: FUROSEMIDE 100 MG/10 ML VIAL 60 MG IV (05:43)
[2019-07-22] MEDS: OXYCODONE IR 5 MG TABLET PO ×4 (05:44→20:18)
[2019-07-22 05:50] LABS: Add Manual Diff / Slide Review NO; Basophils Absolute Auto 0 /uL (0-100); Basophils Percent Auto 0.6 % (0-2); Eosinophils Absolute Auto 200 /uL (0-450); Eosinophils Percent Auto 2.9 % (2-4); Hematocrit 41.5 % (41-53); Hemoglobin 13.3 g/dL (13.5-17.5); INR 1.5 (0.9-1.3); Lymphocytes Absolute Auto 1900 /uL (1100-4500); Lymphocytes Percent Auto 24.3 % (25-40); Mean Corpuscular HGB Conc 32.1 % (30-36); Mean Corpuscular Hemoglobin 28.9 PG (26-34); Mean Corpuscular Volume 89.8 fL (80-100); Monocytes Absolute Auto 700 /uL (0-900); Neutrophils Absolute Auto 5000 /uL (1500-7000); Neutrophils Percent Auto 63.2 % (50-75); Platelet Count 293 X10^3/uL (150-400); Prothrombin Time 16.6 SECONDS (10.1-12.7); Red Blood Cell Count 4.62 X10^6/uL (4.5-5.9); Red Cell Distribution Width 15.1 % (11.6-14.8); White Blood Cell Count 7.9 X10^3/uL (4.5-11.0)
[2019-07-22 06:11] LABS: Alanine Aminotransferase 193 IU/L (<50); Alkaline Phosphatase 80 U/L (38-126); Aspartate Aminotransferase 45 IU/L (17-59); Bilirubin Conjugated 0.1 md/dL (0.0-0.3); Bilirubin Total 3.1 mg/dL (0.2-1.3); Bilirubin Unconjugated 1.9 mg/dL (0.0-1.1); Blood Urea Nitrogen 22 mg/dL (9-20); Calcium 8.3 mg/dL (8.4-10.2); Carbon Dioxide 27 mmol/L (22-32); Chloride 100 mmol/L (98-107); Estimated Glomerular Filt Rate > 60.0 mL/min (>60); Globulin 2.9 g/dL (1.7-4.1); Glucose 82 mg/dL (70-100); HEMOLYSIS < 15 (0-50); Magnesium 2.1 mg/dL (1.6-2.3); Potassium 3.7 mmol/L (3.4-5.1); Sodium 136 mmol/L (137-145); Total Protein 5.9 g/dL (6.3-8.2)
[2019-07-22] MEDS: ENOXAPARIN 40 MG/0.4 ML SYRINGE SUBCUT (09:38)
[2019-07-22] MEDS: lisinopriL 5 MG TABLET 2.5 MG PO (09:39)
[2019-07-22] MEDS: DOCUSATE 100 MG CAPSULE 200 MG PO (09:39)
[2019-07-22] MEDS: SODIUM CHLORIDE 0.9% FLUSH 10 ML IV ×3 (09:40→23:19)
[2019-07-22] MEDS: SPIRONOLACTONE 25 MG TABLET 12.5 MG PO ×2 (09:40→12:37)
[2019-07-22 10:35] LABS: Smooth Muscle Antibody 7 Units (0-19)
[2019-07-22] MEDS: LACTULOSE 20 GM/30 ML SOLUTION 30 GM PO (13:37)
[2019-07-22] MEDS: FUROSEMIDE 100 MG/10 ML VIAL 40 MG IV (18:05)
--- NOTE | 2019-07-22 22:06 | PM.PN.1 ---
Subjective Subjective Date Patient Seen: 07/22/19 Interval history: Kirk Cotton is 29-year-old male with a past medical history significant for alcohol abuse who presented to the ED for persistent abdominal pain x2 weeks and abrupt onset lower extremity and abdominal swelling. The patient is resting in bed comfortably. He is eager to be discharged. He reports shortness of breath and dyspnea on exertion have resolved. He continues to have mild peripheral edema and JVD. He has no specific complaints and denies headache, cough, shortness of breath, chest pain, abdominal pain, nausea, vomiting, fever, chills, dysuria, diarrhea or constipation. He is voiding and eliminating without difficulty. He is up ambulating without assistance. Exam Vital Signs (past 8 hours): - 07/22/19 15:49 07/22/19 19:18 07/22/19 20:00 Temperature 97.4 F L 96.7 F L Pulse Rate 87 96 H Respiratory Rate 18 18 Blood Pressure 109/72 118/73 Pulse Oximetry 95 98 Oxygen Delivery Method Room Air Oxygen Flow Rate 0 Narrative Exam Narrative: General: Young male sitting in bed and in no acute distress, well-developed, well-nourished, appropriately interactive. HEENT: Normocephalic, atraumatic. External ears without defect. Pupils equal, round, and reactive to light. Anicteric sclerae, moist conjunctivae, and no lid lag. Oropharynx free of erythema and cobble stoning with moist mucosa. Neck: Supple with full range of motion. Mild jugular venous distension. No lymphadenopathy or thyromegaly. Cardiovascular: Regular rate and rhythm without murmurs, rubs, or gallops appreciated Pulmonary: Clear to auscultation bilaterally without crackles, wheezes, or rhonchi. Normal respiratory effort with no use of accessory muscles. Abdomen: Soft, bowel sounds present, nontender, nondistended. No hepatosplenomegaly or masses appreciated. Extremities: No clubbing or cyanosis. Trace bipedal edema Skin: Normal temperature, turgor, and texture; no rash, ulcers, or subcutaneous nodules appreciated. Neurological: Cranial nerves grossly intact. Psychiatric: Normal mood and flat affect. Alert and oriented to person, place, and time. Objective Labs Result Diagrams: 07/22/19 05:10 07/22/19 05:10 Labs: Laboratory Results - last 24 hr 07/20/19 07/20/19 07/22/19 06:05 06:05 05:10 WBC 7.9 RBC 4.62 Hgb 13.3 L Hct 41.5 MCV 89.8 MCH 28.9 MCHC 32.1 RDW 15.1 H Plt Count 293 Neut % (Auto) 63.2 Lymph % (Auto) 24.3 L Bladen % (Auto) 9.0 Eos % (Auto) 2.9 Baso % (Auto) 0.6 Neut # (Auto) 5000 Lymph # (Auto) 1900 Bladen # (Auto) 700 Eos # (Auto) 200 Baso # (Auto) 0 PT INR Sodium Potassium Chloride Carbon Dioxide BUN Creatinine Estimated GFR BUN/Creatinine Ratio Glucose Calcium Magnesium Total Bilirubin Conjugated Bilirubin Unconjugated Bilirubin AST ALT Alkaline Phosphatase Total Protein Albumin Globulin Albumin/Globulin Ratio Anti-Smooth Muscle Ab 7 Ref Test (Refrig) Comment 07/22/19 07/22/19 05:10 05:10 WBC RBC Hgb Hct MCV MCH MCHC RDW Plt Count Neut % (Auto) Lymph % (Auto) Bladen % (Auto) Eos % (Auto) Baso % (Auto) Neut # (Auto) Lymph # (Auto) Bladen # (Auto) Eos # (Auto) Baso # (Auto) PT 16.6 H INR 1.5 H Sodium 136 L Potassium 3.7 Chloride 100 Carbon Dioxide 27 BUN 22 H Creatinine 1.05 Estimated GFR > 60.0 BUN/Creatinine Ratio 21.0 Glucose 82 Calcium 8.3 L Magnesium 2.1 Total Bilirubin 3.1 H Conjugated Bilirubin 0.1 Unconjugated Bilirubin 1.9 H AST 45 ALT 193 H Alkaline Phosphatase 80 Total Protein 5.9 L Albumin 3.0 L Globulin 2.9 Albumin/Globulin Ratio 1.0 Anti-Smooth Muscle Ab Ref Test (Refrig) Assessment & Plan Assessment & Plan narrative: Kirk Cotton is 29-year-old male with a past medical history significant for alcohol abuse who presented to the ED for persistent abdominal pain x2 weeks and abrupt onset lower extremity and abdominal swelling. 1. Newly diagnosed dilated cardiomyopathy with decompensated systolic heart failure with an EF of 10-15%, present on admission. Active. -Chest x-ray and CT chest demonstrated cardiomegaly with left ventricular dilatation and bilateral pleural effusions and nodular liver suggestive of hepatic cirrhosis with moderate amount of ascites in the abdomen or pelvis. -EKG with wide complex morphology, LBBB, and early repolarization abnormalities. -Echocardiogram demonstrated severely dilated left ventricle with ejection fraction 10-15%, global longitudinal peak systolic strain average of -3.3%, mildly dilated RV with moderately reduced right ventricular systolic function, severe biatrial enlargement, moderate mitral regurgitation and severe tricuspid regurgitation. -CRP 4.7, LA 1.2, ESR 3. RF negative. DEBORAH pending. -Consulted Cardiology, Dr. Oviedo, who recommended aggressive IV diuresis until euvolemic, spironolactone increased from 12.5 mg to 25 mg daily, afterload reduction with lisinopril 2.5 mg daily (increased to 5 mg daily tomorrow), digoxin 125 mcg daily (previously dig loaded) and withholding beta-liz until euvolemic. Plan to discuss life vest with cardiology today. -Continue strict I&Os and daily weights. Net -3.5 L. -Continue to monitor electrolytes and replete as necessary. Goal K 4.0 and Mg 2.0. 2. Hepatomegaly with probable early cirrhosis, present on admission. Active. -Etiology most likely is alcohol. However, he is only 29 years old, and though he has been drinking heavily over the past few years there is a possibility of an alternative cause. His AST/ALT ratio is not consistent with alcoholic cirrhosis, and neither are his other labs (normal platelet count, no anemia, etc.). He also has evidence of a concurrent cardiomyopathy and more systemic causes should be considered along with alcoholic cirrhosis and dilated cardiomopathy. -Citizen [place] hepatology was consulted in the ER, recommended continued trending of liver function tests, liver enzyme tests and if stable or improving outpatient follow up. His liver enzymes are improving with diuresis. -CT chest, abdomen and pelvis demonstrated nodular liver suggestive of hepatic cirrhosis with moderate amount of ascites in the abdomen or pelvis. Abdominal ultrasound redemonstrated hepatomegaly without nodular contour and without significant ascites to perform diagnostic paracentesis. Initial LFTs elevated which were not previously elevated two weeks prior at outside ED. It is unclear based on discordant exam for the patient truly has cirrhosis. His ascites could be from his heart failure as well. -INR slightly elevated at 1.5, platelets normal at 325, albumin mildly low at 3.4. MELD score 16 on admission. -Ordered DEBORAH negative, RF negative, ASMA negative, liver kidney microsomal antibody negative, hepatitis serologies negative, HIV negative. Further workup as noted above for his dilated cardiomyopathy. -Continue diuresis as above. -Recommend hepatology evaluation and treatment of hepatomegaly and probable early cirrhosis. 3. Acute transaminitis, present on admission. Resolving. -Initial LFTs: Total bilirubin 3.0, AST 133, ALT 412, alkaline phosphatase 87. LFTs trending down with diuresis: Total bilirubin 3.1 (unconjugated bilirubin 1.9 and conjugated 0.1 possibly indicative of Gilbert's disease?), AST normal at 45, ALT 193, and alkaline phosphatase normal at 80. -AST:ALT ratio disproportionate to alcohol induced liver injury and more likely secondary to congestive hepatopathy from systolic heart failure and possibly cirrhosis. -Continue to monitor LFTs daily. 4. Alcohol abuse, chronic, present on admission. Stable. -Discussed and highly recommend alcohol cessation indefinitely. Patient reports he has no desire to use alcohol again and does not want inpatient or outpatient resources. Consulted MEASUREMENT SUPERVISOR and we appreciate her time and recommendations. Code status: Full code surrogate decision make he states is his mother DVT prophylaxis: Lovenox Disposition: Patient likely discharge home in 1-2 days once he is adequately diuresed with close outpatient cardiology follow-up. Quality VTE Deep Vein Thrombosis/Pulmonary Embolism Present on Admission: No
[2019-07-22] MEDS: MORPHINE 2 MG/ML INJ IV (23:19)
[2019-07-23] VITALS (7 sets, daily range): BP systolic 111–120; BP diastolic 73–79; PULSE 76–89; RESP 16; TEMP 36.2–36.8; O2SAT 94–98
[2019-07-23] MEDS: OXYCODONE IR 5 MG TABLET PO ×2 (00:16→17:08)
--- NOTE | 2019-07-23 02:24 | PC.NURSE ---
Addendum entered by Nathaly Lee R.N. 07/23/19 06:19: Slept at [facility]. Noted to have trace edema in bilateral feet/ankles. Reports he had BM yesterday. Pain in upper abdomen is currently at 7/10 severity; medicated with Morphine. Original Note: Patient seen and assessed at 2320. Is aler and oriented. Breath sounds CTA with RA sat of 97%. HRR with murmur; telemetry reading was SR w/BBB. Denies nausea but does complain of 7/10 upper abdominal pain which is tender to palpation and abdomen appears mildly distended; medicated with Morphine which brought pain to 6/10 so then medicated with Oxycodone and is currently lying in bed with FLACC of 0. BT present and abdomen is soft; no documented BM since 07/18. Voiding via urinal; denies dysuria, frequency or urgency. Is independent with mobility. Currently on a 1500cc/24h fluid restriction; patient verbalizes understanding. Fall risk score is moderate but patient declines use of alarm; verbalizes he will call for assistance if having any dizziness or weakness.
[2019-07-23] MEDS: MORPHINE 2 MG/ML INJ IV (06:14)
[2019-07-23] MEDS: SODIUM CHLORIDE 0.9% FLUSH 10 ML IV ×3 (06:14→17:11)
[2019-07-23 08:25] LABS: Alanine Aminotransferase 182 IU/L (<50); Albumin 3.2 g/dL (3.5-5.0); Alkaline Phosphatase 100 U/L (38-126); Aspartate Aminotransferase 64 IU/L (17-59); BUN Creatinine Ratio 19.1 (6-22); Blood Urea Nitrogen 17 mg/dL (9-20); Calcium 8.5 mg/dL (8.4-10.2); Carbon Dioxide 30 mmol/L (22-32); Chloride 100 mmol/L (98-107); Estimated Glomerular Filt Rate > 60.0 mL/min (>60); Globulin 3.2 g/dL (1.7-4.1); Glucose 84 mg/dL (70-100); HEMOLYSIS < 15 (0-50); Magnesium 2.2 mg/dL (1.6-2.3); Potassium 3.8 mmol/L (3.4-5.1); Sodium 137 mmol/L (137-145); Total Protein 6.4 g/dL (6.3-8.2)
[2019-07-23] MEDS: lisinopriL 5 MG TABLET PO (09:03)
[2019-07-23] MEDS: polyethylene glycoL 3350 17 GM POWD.PACK PO (09:03)
[2019-07-23] MEDS: DOCUSATE 100 MG CAPSULE 200 MG PO (09:03)
[2019-07-23] MEDS: ENOXAPARIN 40 MG/0.4 ML SYRINGE SUBCUT (09:03)
[2019-07-23] MEDS: SPIRONOLACTONE 25 MG TABLET PO (09:04)
[2019-07-23] MEDS: FUROSEMIDE 100 MG/10 ML VIAL 40 MG IV ×2 (09:11→17:10)
[2019-07-23 10:08] LABS: ANA Screen, IFA Negative (.)
--- NOTE | 2019-07-23 11:15 | PM.DS.1 ---
History of Present Illness History of Present Illness Date Patient Seen: 07/19/19 Chief complaint: Pancreatitis x2 weeks Narrative: Written by Dr. Michele: Kirk Cotton is a 29 year old male with PMH of EtOH abuse who presented to the emergency room with 2 weeks of continued abdominal pain and recent lower extremity and abdominal swelling. He presented to [facility] emergency room on June 30 complaining of abdominal pain which had started a few days prior. Pain was epigastric in nature, non, radiating, not seemingly related to food. He had associated nausea, vomiting, and diarrhea. He had a CT scan there which showed a small right-sided pleural effusion, and enlarged heart, and reflux into the hepatic veins consistent with a cardiomyopathy. He also had an enlarged liver, at 19.8 cm, mild edema in the pancreatic head with mild surrounding inflammation surrounding the duodenum and extending along the right inferior hepatic lobe, with small volume ascites, and a right kidney cyst. This was consistent with acute pancreatitis according to the radiologist. Patient was discharged from the emergency room with plan for a follow-up with his PCP for outpatient cardiology follow-up and an echocardiogram was ordered. The patient never followed up for the studies or with his PCP. His labs in the emergency room at [facility] showed a total bilirubin of 2.1, AST of 29, ALT of 51, and alk-phos of 52. His creatinine at that time was also noted to be 1.4. Patient was given a prescription for pain medications. His pain however, continued over the next 2 weeks. In over the last few days he has noticed increasing abdominal girth, as well as lower extremity swelling, and worsening cough. He endorses mild chills, but no fever. He also complains of dyspnea on exertion over the past few weeks. He was not ruled out for COVID-19 at [facility]. In the emergency room here, the patient was afebrile, normotensive, mildly tachycardic, but saturating well on room air. Initial laboratory evaluation showed an unremarkable CBC. His INR was elevated at 1.5, sodium of 136, glucose of 128, lactate 1.3, T bili was elevated at 3.0, AST of 133, ALT of 412, alk phos of 87. LDH was 633. CRP was 4.9, proBNP was 89455, lipase of 334. Procalcitonin is 0.19. Tylenol level was negative. Hepatitis serologies were sent from the emergency room, as was COVID-19 PCR. His D-dimer was elevated at 807. EKG with a LBBB and wide QRS morphology throughout, early repolarization abnormalities, but sinus rhythm. CXR with cardiomegaly and trace bilateral pleural effusions. Repeat CT scan performed here again showed cardiomegaly with left ventricular dilatation, a liver with nodular margins suggesting hepatic cirrhosis, moderate amount of free fluid / ascites, diverticulosis without diverticulitis. His pancreas was unremarkable. Emergency room discussed with a special education associate at [facility] who recommended initial laboratory evaluation, trending of his hepatic function, and outpatient follow up. Patient's alcohol intake consists of an average of 8-10 beers, with a maximum of 12 beers and a half a 5th of vodka a day. 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 So he also continues to drink 7 on 7 off. He has been doing this for about 2-3 years now, and drink somewhat to a lesser extent before that. He denies any family history of liver disease or heart disease. He denies any occupational exposures. He denies any IV drug use. He has attempted marijuana recently to help with his abdominal pain which does seemingly help, and he smokes about 1/4 of a pack daily. He denies any tremors or diaphoresis when not drinking, nor has he had any seizures in the past or intubations. He does not take any chronic medications. Discharge Providers Provider Date of admission: 07/19/19 17:12 Discharge Date: 07/23/19 Primary care physician: Joon Power Discharge provider: Mabel Mercado DO Summary Hospital Course Discharge Diagnosis: 1. Newly diagnosed dilated cardiomyopathy with decompensated systolic heart failure with an EF of 10-15%, present on admission. Acute systolic CHF exacerbation resolved. 2. Hepatomegaly with probable early cirrhosis, present on admission. Stable. 3. Acute transaminitis, secondary to congestive hepathopathy, present on admission. Resolving. 4. Alcohol abuse, chronic, present on admission. Stable. Hospital Course: Kirk Cotton is 29-year-old male with a past medical history significant for alcohol abuse who presented to the ED for persistent abdominal pain x2 weeks and abrupt onset lower extremity and abdominal swelling. 1. Newly diagnosed dilated cardiomyopathy with decompensated systolic heart failure with an EF of 10-15%, present on admission. Acute systolic CHF exacerbation resolved. -Chest x-ray and CT chest demonstrated cardiomegaly with left ventricular dilatation and bilateral pleural effusions and nodular liver suggestive of hepatic cirrhosis with moderate amount of ascites in the abdomen or pelvis. -EKG with wide complex morphology, LBBB, and early repolarization abnormalities. -Echocardiogram demonstrated severely dilated left ventricle with ejection fraction 10-15%, global longitudinal peak systolic strain average of -3.3%, mildly dilated RV with moderately reduced right ventricular systolic function, severe biatrial enlargement, moderate mitral regurgitation and severe tricuspid regurgitation. -CRP 4.7, LA 1.2, ESR 3. RF negative. DEBORAH pending. -Continued strict I&Os and daily weights. Net -9.6 L. -Continued to monitor electrolytes and replete as necessary. Goal K 4.0 and Mg 2.0. -Consulted Cardiology, Dr. Oviedo, who recommended aggressive IV diuresis until euvolemic the furosemide 40 PO daily, spironolactone 25 mg daily, afterload reduction with lisinopril 5 mg daily, digoxin 125 mcg daily (previously digoxin loaded) and carvedilol 3.125 twice daily. Patient received life vest to wear at all times. Patient will have close outpatient follow-up with cardiology, Dr. Oviedo, and her office will arrange for 1-2 week follow-up with repeat labs BMP, Mg, and digoxin level. 2. Hepatomegaly with probable early cirrhosis, present on admission. Stable. -Etiology most likely is alcohol. However, he is only 29 years old, and though he has been drinking heavily over the past few years there is a possibility of an alternative cause. His AST/ALT ratio is not consistent with alcoholic cirrhosis, and neither are his other labs (normal platelet count, no anemia, etc.). He also has evidence of a concurrent cardiomyopathy and more systemic causes should be considered along with alcoholic cirrhosis and dilated cardiomopathy. -[facility] hepatology was consulted in the ER, recommended continued trending of liver function tests, liver enzyme tests and if stable or improving outpatient follow up. His liver enzymes improved with diuresis. -CT chest, abdomen and pelvis demonstrated nodular liver suggestive of hepatic cirrhosis with moderate amount of ascites in the abdomen or pelvis. Abdominal ultrasound redemonstrated hepatomegaly without nodular contour and without significant ascites to perform diagnostic paracentesis. Initial LFTs elevated which were not previously elevated two weeks prior at outside ED. It is unclear based on discordant exam for the patient truly has cirrhosis. His ascites could be from his heart failure as well. -INR slightly elevated at 1.5, platelets normal at 325, albumin mildly low at 3.4. MELD score 16 on admission. -DEBORAH negative, RF negative, ASMA negative, liver kidney microsomal antibody negative, hepatitis serologies negative, HIV negative. Further workup as noted above for his dilated cardiomyopathy. -Continued diuresis as above. -Recommend outpatient hepatology evaluation and treatment of hepatomegaly and probable early cirrhosis. 3. Acute transaminitis, secondary to congestive hepathopathy, present on admission. Resolving. -AST:ALT ratio disproportionate to alcohol induced liver injury and more likely secondary to congestive hepatopathy from systolic heart failure and possibly cirrhosis. -Initial LFTs: Total bilirubin 3.0, AST 133, ALT 412, alkaline phosphatase 87. LFTs trending down with diuresis: Total bilirubin 3.0 of which it was predominately unconjugated and likely represents Gilbert's disease. LFT's improved with diuresis now: bilirubin 3.0, AST 64, ALT 182, and alkaline phosphatase normal at 100. -Continued to monitor LFTs daily. 4. Alcohol abuse, chronic, present on admission. Stable. -Discussed and highly recommend alcohol cessation indefinitely. Patient reports he has no desire to use alcohol again and does not want inpatient or outpatient resources. Consulted SENIOR MICROSOFT NET DEVELOPER and we appreciate her time and recommendations. Exam Vital Signs (past 8 hours): - 07/23/19 03:22 07/23/19 08:07 07/23/19 09:00 Temperature 97.6 F 97.2 F L Pulse Rate 86 89 Respiratory Rate 16 16 Blood Pressure 113/73 120/74 Pulse Oximetry 96 97 94 Oxygen Delivery Method Room Air Oxygen Flow Rate 0 Narrative Exam Narrative: General: Young male sitting in bed and in no acute distress, well-developed, well-nourished, appropriately interactive. HEENT: Normocephalic, atraumatic. External ears without defect. Pupils equal, round, and reactive to light. Anicteric sclerae, moist conjunctivae, and no lid lag. Oropharynx free of erythema and cobble stoning with moist mucosa. Neck: Supple with full range of motion. No jugular venous distension. No lymphadenopathy or thyromegaly. Cardiovascular: Regular rate and rhythm without murmurs, rubs, or gallops appreciated Pulmonary: Clear to auscultation bilaterally without crackles, wheezes, or rhonchi. Normal respiratory effort with no use of accessory muscles. Abdomen: Soft, bowel sounds present, nontender, nondistended. Hepatomegaly. No splenomegaly or masses appreciated. No ascites. Extremities: No clubbing or cyanosis. Trace bipedal edema Skin: Normal temperature, turgor, and texture; no rash, ulcers, or subcutaneous nodules appreciated. No stigmarta of liver disease. Neurological: Cranial nerves grossly intact. No asterixis. Psychiatric: Normal mood and flat affect. Alert and oriented to person, place, and time. Objective Labs Result Diagrams: 07/22/19 05:10 07/23/19 07:50 Labs: Laboratory Results - last 24 hr 07/21/19 07/23/19 07/23/19 14:15 07:50 07:50 Sodium 137 Potassium 3.8 Chloride 100 Carbon Dioxide 30 BUN 17 Creatinine 0.89 Estimated GFR > 60.0 BUN/Creatinine Ratio 19.1 Glucose 84 Calcium 8.5 Magnesium 2.2 Total Bilirubin 3.0 H AST 64 H ALT 182 H Alkaline Phosphatase 100 Total Protein 6.4 Albumin 3.2 L Globulin 3.2 Albumin/Globulin Ratio 1.0 Anti-Nuclear Antibody Negative Discharge Plan Discharge Plan Patient Disposition: Home Discharge comment: You're being discharged home. You have been provided a life vest to wear at all times. This device will shock your heart to try to restart it if your heart should stop. You have been prescribed several medications to help reduce the stress on your heart and strengthen the pump of your heart. Please take all medications as prescribed. Please follow-up with Cardiology, Dr. Oviedo, and her office should call you to arrange an appointment in the next 1-2 weeks. If you do not hear from her office in the next 1-2 days please call to schedule this appointment. You should have lab work performed prior to your appointment. Discharge orders & Medications Prescriptions: New carvedilol [Coreg] 3.125 mg Tablet 3.125 mg PO BID Qty: 60 RF: 0 spironolactone 25 mg Tablet 25 mg PO DAILY Qty: 30 RF: 0 lisinopril 5 mg Tablet 5 mg PO DAILY Qty: 30 RF: 0 digoxin 125 mcg (0.125 mg) Tablet 0.125 mg PO DAILY@1700 Qty: 30 RF: 0 furosemide 40 mg tablet 40 mg PO DAILY Qty: 30 RF: 0 Other Ambulatory Orders: Basic Metabolic Panel (Stat) Timeframe: 1 Week Facility: [facility] - Location: Laboratory Ordered By: Mabel Mercado Digoxin (Stat) Timeframe: 1 Week Facility: [facility] - Location: Laboratory Ordered By: Mabel Mercado Magnesium (Stat) Timeframe: 1 Week Facility: [facility] - Location: Laboratory Ordered By: Mabel Mercado Follow up/Referrals: Ishaan Oviedo MD [Physician] - 1 Week Joon Power [Primary Care Provider] - 2 Weeks Diet/Activity/Treatments Diet: Low-fat, Low-sodium and Low-cholesterol Diet comment: Fluid 1.5 L, less than 2 g or 2000 mg sodium Activity: Activity as tolerated Visit Report/Discharge Packet Instructions: DI for Heart Failure, DI for Cardiomyopathy, DI for Cirrhosis, Fluid Restricted Diet, Low-Sodium Diet Discharge Data Primary Care Provider: Joon Power Discharges patient from system. Discharge Date/Time: 07/23/19 20:50 Quality VTE Deep Vein Thrombosis/Pulmonary Embolism Present on Admission: No
[2019-07-23] MEDS: carvediloL 3.125 MG TABLET PO ×2 (12:45→21:04)
--- NOTE | 2019-07-23 15:59 | CM.DPC ---
Addendum entered by ROSA Ferrara 07/24/19 13:01: DC home 07.23.19, Lona at [facility] updated today 07.24.19 re: DC date and dispo Original Note: DCP Cont: Patient is supposed to discharge home, but will depend upon him getting cardiac life vest. P: DCP to continue to follow for any needs.
[2019-07-23] MEDS: DIGOXIN 0.125 MG TABLET PO (17:17)
--- NOTE | 2019-07-23 17:30 | PC.NURSE ---
Addendum entered by Myesha Lees R.N. 07/23/19 20:59: Pt has been fitted for vest and cleared by [facility]. States pt has been educated and fitted. Pt wearing vest with control device. Pt has taken off own telemetry and removed own iv. Pt is fully dressed and standing @ doorway stating ready to go. Discharge instructions given to pt and pt's mother who is present in room. Scripts provided to pt. All this information placed in pt's blue folder. Questions answered as appropriate and follow up strongly encouraged as per discharge instructions. Pt desires to ambulate with escort to vehicle outside of [facility] where father is waiting. Pt left hospital with this typewriter assembly and parts inspector as escort in stable condition. All personal effects accounted for. Pt instructed not to drive this evening as has had oxycodone. Addendum entered by Myesha Lees R.N. 07/23/19 20:25: Pt's mother was granted visitation privileges to be with pt. Vest rep from [employer] [facility], now with pt. Discharge to home per Dr. Mercado. Scripts provided by . Pt does report improvement in abdominal pain s/p oxycodone administration. Original Note: Informed by supervisor gluing, Negar, pt's vest will be here this evening approximately 1900. Negar informs Dr. Mercado and then informs patient. Pt states able to find ride this evening and per supervisor gluing, pt will then be discharged. Pt sitting up in bed taking diet well. Eats 100% and does admit to central mid abdominal pain when asked 8/10. Offered ordered pain meds and pt states desires oxycodone. This was given. Digoxin given with explanation for action. Pt moves all extremities independently and follows commands appropriately. Tele in place.
== END 2019-07-23 20:50 | disposition home or self-care (01) | DRG 292 ==
LOC: ED 12:15 → AC 17:17
PROVIDERS: Internal Medicine; Nurse Practitioner; Admitting Provider Internal Medicine; Emergency Provider Nurse Practitioner Family; PCP Internal Medicine; Referring Provider Internal Medicine; Visit Provider Internal Medicine
DX: I50.23 Acute on chronic systolic (congestive) heart failure (principal); I42.0 Dilated cardiomyopathy; I44.7 Left bundle-branch block, unspecified; K74.60 Unspecified cirrhosis of liver; F10.10 Alcohol abuse, uncomplicated; R16.0 Hepatomegaly, not elsewhere classified; F17.210 Nicotine dependence, cigarettes, uncomplicated; Z03.818 Encounter for observation for suspected exposure to other biological agents ruled out
CPT/HCPCS: 36415; 71046; 74177; 76705; 80048; 80053; 80061; 80074; 80076; 80329; 81001; 82550; 82728; 83036; 83516; 83605; 83615; 83690; 83735; 83880; 84145; 84443; 84484; 85025; 85379; 85610; 85651; 85730; 86038; 86140; 86376; 86430; 86704; 86706; 86803; 87340; 87389; 87635; 93005; 93306; 94762; 96361; 96374; 99285; G0480; J1650; J1940; J2270; J2405; Q9967

== ENCOUNTER 2019-07-26 19:41 | Emergency (ER) | payer OTHER, SELFPAY ==
[2019-07-19 17:36] VITALS: BMI 27.2
[2019-07-26] VITALS (7 sets, daily range): BP systolic 102–112; BP diastolic 64–82; PULSE 71–82; RESP 16–31; O2SAT 97–100
--- NOTE | 2019-07-26 19:45 | ED_ITS ---
HPI - General Adult General Chief complaint: Chest Pain Stated complaint: Sharp pain along R side, hard to breathe Time Seen by Provider: 07/26/19 19:43 Source: patient Mode of arrival: Ambulatory Limitations: no limitations History of Present Illness HPI narrative: Patient is a 29-year-old male. Has a history of alcoholism. Also has a history of diastolic heart failure. This was diagnosed during his last admission to the hospital which was within the past couple weeks. Also has a history of elevated liver enzymes and concern for cirrhosis however does not carry this exact diagnosis. Since his discharge from the hospital has not followed up with cardiology. He states that he is going to call the cardio logist tomorrow to establish follow-up care. Has not followed up with his primary doctor either. He does have a LifeVest/external defibrillator in place. He has been wearing this since he was discharged from the hospital. He is here for evaluation of right-sided lower chest pain. He states that it started 3-4 hours prior to arrival here in the emergency department. He was driving at the time. Was a fairly sudden onset. States that it is worse when he takes a deep breath. Potentially worse when he bends to the side especially to the right side. Not worse with palpation. No vomiting. No coughing. No fevers. No change in bowel habits. Has not tried anything for symptoms prior to arrival Related Data Previous Rx's Medication Instructions Recorded carvedilol [Coreg] 3.125 mg PO BID #60 tab 07/23/19 digoxin 0.125 mg PO DAILY@1700 #30 tab 07/23/19 furosemide 40 mg PO DAILY #30 tab 07/23/19 lisinopril 5 mg PO DAILY #30 tab 07/23/19 spironolactone 25 mg PO DAILY #30 tab 07/23/19 Allergies Allergy/AdvReac Type Severity Reaction Status Date / Time No Known Drug Allergies Allergy Verified 07/19/19 12:36 Review of Systems Constitutional Constitutional: Denies fever(s) and Denies headache(s) ENT Ears, Nose, Mouth, and Throat: Denies headache(s) Cardiovascular Cardiovascular: Reports chest pain, Denies diaphoresis, Denies syncope, Denies rapid heart rate, Denies edema, Denies lightheadedness, Denies palpitations and Denies dyspnea Respiratory Respiratory: Denies cough and Denies dyspnea Gastrointestinal Gastrointestinal: Reports abdominal pain (Right upper quadrant), Denies nausea and Denies vomiting Genitourinary Genitourinary: Denies dysuria Musculoskeletal Musculoskeletal: Denies myalgias and Denies arthralgias Integumentary/Breasts Skin/Breast: Denies lesions and Denies rash Neurologic Neurologic: Denies behavioral changes, Denies syncope and Denies headache(s) Psychiatric Psychiatric: Denies behavioral changes Endocrine Endocrine: Denies palpitations Hematologic/Lymphatic Hematologic/Lymphatic: Denies easy bleeding and Denies easy bruising Patient History Medical History Cardiomegaly (Inactive) Heart failure (Inactive) Hypertension (Inactive) Liver disease (Inactive) Pancreatitis (Inactive) Surgical History No pertinent past surgical history (Acute) Social History details: Currently going through divorce number of children: 3 household members: children lives independently: Yes caregiver/support person: No occupational status: employed current occupational exposures/hazards: No Smoking Status: Current every day smoker alcohol intake: former Smoking Status: Current every day smoker alcohol intake frequency: 3 or more drinks per day Substance Use Type: does not use Exam Initial Vital Signs Initial Vital Signs: Vital Signs Pulse Rate 80 07/26/19 19:45 Respiratory Rate 28 H 07/26/19 19:45 Blood Pressure 102/66 07/26/19 19:45 Pulse Oximetry 100 07/26/19 19:45 Const General: cooperative, comfortable and well developed Limitations: mental status not altered [facility] Head: normal to inspection and normocephalic Chest Chest: No crepitus and No tenderness Resp Effort & Inspection: normal respiratory effort Auscultation: clear to auscultation bilaterally Cardio Rate: regular rate Rhythm: regular rhythm Pulses: radial pulses present GI Inspection: non-distended Palpation: soft, No firm and No tender Back/Spine/Pelvis Back: CVA tenderness right Skin Lesions: no lesions Rashes: no rashes Neuro General: alert and awake Cognition: normal cognition Gait: normal gait Sensory Exam: no sensory deficits noted Extrem General: normal to inspection and capillary refill normal Psych Appearance: grossly normal and well kempt Scores GCS [place] coma scale eye opening: Spontaneous [place] coma scale verbal response: Orientated [place] coma scale motor response: Obey commands [place] coma scale total score: 15 Course Orders Ordered: ED Orders 07/26/19 19:46 XR chest 1V Stat 07/26/19 19:48 EKG-12 Lead Stat 07/26/19 19:50 Complete Blood Count AUTO DIFF Stat Comprehensive Metabolic Panel Stat D Dimer Stat Lipase Stat NT-proBNP (BNP-Adult 18+) Stat Partial Thromboplastin Time Stat Prothrombin Time INR Stat Troponin I Stat 07/26/19 20:30 US abdomen limited Stat 07/26/19 21:02 CT angio chest PE protocol Stat 07/26/19 22:23 Troponin I Stat Discontinued Medications Ketorolac Tromethamine (Toradol) 30 mg IV NOW ONE Stop: 07/26/19 21:39 Last Admin: 07/26/19 21:43 Dose: 30 mg Documented by: PHI Lorazepam (Ativan) 1 mg IV NOW ONE Stop: 07/26/19 23:04 Morphine Sulfate (Morphine) 4 mg IV NOW ONE Stop: 07/26/19 20:24 Last Admin: 07/26/19 20:27 Dose: 4 mg Documented by: MATIAS Morphine Sulfate (Morphine) 4 mg IV NOW ONE Stop: 07/26/19 21:03 Last Admin: 07/26/19 21:08 Dose: 4 mg Documented by: PHI Vital Signs Vital signs: Vital Signs - 8 hr 07/26/19 19:45 07/26/19 21:00 07/26/19 21:37 Pulse Rate 80 82 79 Respiratory Rate 28 H 31 H 26 H Blood Pressure 102/66 Blood Pressure [Right Arm] 105/72 111/74 Pulse Oximetry 100 99 97 07/26/19 22:30 07/26/19 22:47 07/26/19 23:00 Pulse Rate 79 79 72 Respiratory Rate 16 18 23 Blood Pressure Blood Pressure [Right Arm] 112/82 112/82 109/69 Pulse Oximetry 98 98 98 Medical Decision Making Medical Records Medical records reviewed: Yes I reviewed the patient's medical records. Lab Data Lab results reviewed: Yes I reviewed the patient's lab results. Result diagrams: 07/26/19 19:50 07/26/19 19:50 Labs: Lab Results 07/26/19 07/26/19 07/26/19 Range/Units 19:50 19:50 19:50 WBC 7.8 (4.5-11.0) X10^3/uL RBC 6.24 H (4.5-5.9) X10^6/uL Hgb 17.8 H (13.5-17.5) g/dL Hct 55.3 H (41-53) % MCV 88.7 (80-100) fL MCH 28.6 (26-34) PG MCHC 32.2 (30-36) % RDW 15.2 H (11.6-14.8) % Plt Count 433 H (150-400) X10^3/uL Neut % (Auto) 67.7 (50-75) % Lymph % (Auto) 16.6 L (25-40) % [place] % (Auto) 10.0 (3-14) % Eos % (Auto) 4.3 H (2-4) % Baso % (Auto) 1.4 (0-2) % Neut # (Auto) 5300 (1644-6578) /uL Lymph # (Auto) 1300 (0120-3026) /uL [place] # (Auto) 800 (0-900) /uL Eos # (Auto) 300 (0-450) /uL Baso # (Auto) 100 (0-100) /uL PT 12.6 (10.1-12.7) SECONDS INR 1.1 (0.9-1.3) APTT 36 D (26.4-36.2) SECONDS D-Dimer (<230) ng/mL Sodium 141 (137-145) mmol/L Potassium 4.3 (3.4-5.1) mmol/L Chloride 100 (98-107) mmol/L Carbon Dioxide 32 (22-32) mmol/L BUN 20 (9-20) mg/dL Creatinine 1.06 (0.66-1.25) mg/dL Estimated GFR > 60.0 (>60) mL/min BUN/Creatinine Ratio 18.9 (6-22) Glucose 78 (70-100) mg/dL Calcium 9.5 (8.4-10.2) mg/dL Total Bilirubin 2.0 H (0.2-1.3) mg/dL AST 89 H (17-59) IU/L ALT 201 H (<50) IU/L Alkaline Phosphatase 112 (38-126) U/L Troponin I < 0.012 (0.01-0.034) ng/mL NT-Pro-B Natriuret Pep 6970 H (<125) pg/mL Total Protein 8.5 H (6.3-8.2) g/dL Albumin 4.3 (3.5-5.0) g/dL Globulin 4.2 H (1.7-4.1) g/dL Albumin/Globulin Ratio 1.0 (1.0-2.8) Lipase 495 H (23-300) U/L 07/26/19 07/26/19 Range/Units 19:50 22:23 WBC (4.5-11.0) X10^3/uL RBC (4.5-5.9) X10^6/uL Hgb (13.5-17.5) g/dL Hct (41-53) % MCV (80-100) fL MCH (26-34) PG MCHC (30-36) % RDW (11.6-14.8) % Plt Count (150-400) X10^3/uL Neut % (Auto) (50-75) % Lymph % (Auto) (25-40) % [place] % (Auto) (3-14) % Eos % (Auto) (2-4) % Baso % (Auto) (0-2) % Neut # (Auto) (2143-4034) /uL Lymph # (Auto) (6979-1307) /uL [place] # (Auto) (0-900) /uL Eos # (Auto) (0-450) /uL Baso # (Auto) (0-100) /uL PT (10.1-12.7) SECONDS INR (0.9-1.3) APTT (26.4-36.2) SECONDS D-Dimer 657 H (<230) ng/mL Sodium (137-145) mmol/L Potassium (3.4-5.1) mmol/L Chloride (98-107) mmol/L Carbon Dioxide (22-32) mmol/L BUN (9-20) mg/dL Creatinine (0.66-1.25) mg/dL Estimated GFR (>60) mL/min BUN/Creatinine Ratio (6-22) Glucose (70-100) mg/dL Calcium (8.4-10.2) mg/dL Total Bilirubin (0.2-1.3) mg/dL AST (17-59) IU/L ALT (<50) IU/L Alkaline Phosphatase (38-126) U/L Troponin I < 0.012 (0.01-0.034) ng/mL NT-Pro-B Natriuret Pep (<125) pg/mL Total Protein (6.3-8.2) g/dL Albumin (3.5-5.0) g/dL Globulin (1.7-4.1) g/dL Albumin/Globulin Ratio (1.0-2.8) Lipase (23-300) U/L Imaging Data Chest x-ray: Radiologist's Impression: [address] [address] XRay Report Signed Patient: Kirk Cotton [facility]#: [id number] : 1990Acct:[id number] Age/Sex: MDate of Service: 07/26/19 Loc: ED Accession Number: [id number] Procedure: XR chest 1V Ordering Provider: Joaquin Cheema D.O. PROCEDURE: XR CHEST 1V INDICATIONS: Shortness of breath TECHNIQUE: One view of the chest was acquired. COMPARISON: [facility], , XR CHEST 2V, 07/19/2019, 12:38. FINDINGS: Surgical changes and devices: Monitoring device over chest wall and left axilla are seen. Lungs and pleura: Lungs are clear. No pleural effusions or pneumothorax. Mediastinum: Mediastinal contours appear normal. Heart size is enlarged. Bones and chest wall: No suspicious bony lesions. Overlying soft tissues appear unremarkable. IMPRESSION: No gross acute cardiopulmonary pathology. Dictated by: Nj Roman M.D. on 07/26/2019 at 20:35 Approved by: Nj Roman M.D. on 07/26/2019 at 20:36 US - abdomen: Radiologist's Impression: [address] [address] Ultrasound Report Signed Patient: Kirk Cotton [facility]#: [id number] : 1990Acct:[id number] Age/Sex: MDate of Service: 07/26/19 Loc: ED Accession Number: [id number] Procedure: US abdomen limited Ordering Provider: Joaquin Cheema D.O. PROCEDURE: US ABDOMEN LIMITED INDICATIONS: RIGHT UPPER QUADRANT PAIN TECHNIQUE: Real-time scanning was performed of the abdominal and retroperitoneal organs, with image documentation. COMPARISON: [facility], , US ABDOMEN LIMITED, 07/20/2019, 11:04. FINDINGS: Liver: Liver is mildly enlarged and measures 18.1 cm in length. Normal liver parenchymal echotexture is seen. Gallbladder: 2 x 7 mm polyp is noted in nondependent portion of gallbladder wall. No significant gallbladder wall thickening or pericholecystic fluid. No sonographic Garibay's. Biliary ducts: Intrahepatic bile ducts are non-dilated. Extrahepatic bile duct caliber measures 4.4 mm. Normal is 6-7 mm or less in diameter, or 10 mm or less post-cholecystectomy. Miscellaneous: No free abdominal fluid. IMPRESSION: 1. Tiny gallbladder polyp unchanged from prior study. No significant gallbladder wall thickening is seen on the current study. No sonographic Garibay's sign. 2. Mild hepatomegaly. No discrete hepatic lesion. No biliary ductal dilatation. 3. No free fluid is seen on the current study. Dictated by: Nj Roman M.D. on 07/26/2019 at 21:22 Approved by: Nj Roman M.D. on 07/26/2019 at 21:25 CT scan - chest: Radiologist's Impression: [place] [address] CT Scan Report Signed Patient: Kirk Cotton [facility]#: [id number] : 1990Acct:[id number] Age/Sex: MDate of Service: 07/26/19 Loc: ED Accession Number: [id number] Procedure: CT angio chest PE protocol Ordering Provider: Joaquin Cheema D.O. PROCEDURE: CT ANGIO CHEST PE PROTOCOL INDICATIONS: Chest pain, shortness of breath TECHNIQUE: After the administration of intravenous contrast, 2 mm thick sections acquired from the pulmonary apices to the posterior costophrenic angles. 3-dimensional maximum intensity projection (MIP) coronal and sagittal reformats were then acquired through the thorax. For radiation dose reduction, the following was used: automated exposure control, adjustment of mA and/or kV according to patient size. COMPARISON: None. FINDINGS: Image quality: Excellent. Pulmonary arteries: Pulmonary arteries are normal in size, and demonstrate no intraluminal filling defects to suggest central pulmonary embolism. Lungs and pleura: 2.3 x 3.3 cm masslike consolidation adjacent to posterior lateral pleural of right lung base is seen series 5 image 238. Left lung is clear. No pleural effusions or pneumothorax. Central and peripheral airways are patent. Mediastinum: Heart size is normal, without pericardial effusion. Enlarged lymph nodes are seen scattered in mediastinum and bilateral hilar region measures up to 1.4 cm in short axis diameter in right hilar region and up to 1.5 cm in short axis kitty meter in subcarinal space. Thoracic aorta is normal in caliber and enhancement. Esophagus is normal in caliber, without hiatal hernia. Bones and chest wall: No suspicious bony lesions. Ribs and thoracic spine appear intact throughout. Thyroid gland is within normal limits. No axillary or sup raclavicular adenopathy. Abdomen: Visualized upper abdominal solid organs appear normal in the early arterial phase of enhancement. IMPRESSION: 1. No evidence of pulmonary embolus. No thoracic aortic aneurysm. 2. Masslike consolidation in posterior lateral right lung base and may represent right lower lobe infiltrate. Followup until resolution is recommended to rule out malignant process. 3. Prominent mediastinal and hilar lymph nodes suggestive of reactive inflammatory lymphadenopathy. Dictated by: Nj Roman M.D. on 07/26/2019 at 21:47 Approved by: Nj Roman M.D. on 07/26/2019 at 21:51 ECG Data Attestation: I personally reviewed and interpreted this ECG as follows: Prior ECG tracings: available for review Interpretation: Sinus rhythm Ventricular rate is 79 Left bundle-branch block Unchanged from prior EKG MDM Narrative Medical decision making narrative: Patient's EKG is unchanged from prior. Troponins negative x2. BNP improved since his last visit/admission to the hospital. Patient clinically not fluid overloaded. Afebrile. Chest x-ray is negative. CTA of the chest shows no signs of pulmonary embolism. Does have some concern about a right lower lung mass could potentially be pneumonia however patient clinically does not have pneumonia. I feel we could hold on a ntibiotics. I did tell him about this. Informed him that he should follow up with his primary doctor regarding this. Patient did have a right upper quadrant ultrasound during his last admission in the hospital which was concerning for a gallbladder polyp versus stone and did have edema. Given his right upper quadrant pain in his elevation in his LFTs and right upper quadrant ultrasound was repeated. Was unremarkable. Low suspicion for gallbladder pathology as the cause of his symptoms. He has no skin changes concerning for zoster. Patient reported no improvement after the morphine however did report improvement after Toradol. Unsure the exact etiology of the patient's symptoms however I feel it is unlikely that this is pneumonia, cardiac disease, gallbladder pathology or pain related to his liver. This could potentially be intercostal muscle spasm. I did explain all this to the patient. I feel the patient can be safely discharged home. He is going to contact his installation helper and his primary doctor tomorrow for follow-up. He is going to continue all of his home medications. He was given return precautions and follow-up instructions expressed understanding and agreement. Discharge Plan Departure Patient Disposition: Home Clinical Impression: Right-sided chest pain Discharge Date/Time: 07/26/19 23:21 Instructions: DI for Atypical Chest Pain Activity Restrictions/Additional Instructions: Continue all of your medications as directed. I recommend that tomorrow you contact your installation helper and your primary provider to establish follow-up care with both of these individuals. Return to the emergency department for any new or worsening symptoms like we discussed. Prescriptions: No Action carvedilol [Coreg] 3.125 mg Tablet 3.125 mg PO BID Qty: 60 RF: 0 spironolactone 25 mg Tablet 25 mg PO DAILY Qty: 30 RF: 0 lisinopril 5 mg Tablet 5 mg PO DAILY Qty: 30 RF: 0 digoxin 125 mcg (0.125 mg) Tablet 0.125 mg PO DAILY@1700 Qty: 30 RF: 0 furosemide 40 mg tablet 40 mg PO DAILY Qty: 30 RF: 0 Referrals: Joon Power [Primary Care Provider] -
[2019-07-26 20:01] LABS: Add Manual Diff / Slide Review NO; Basophils Absolute Auto 100 /uL (0-100); Basophils Percent Auto 1.4 % (0-2); Eosinophils Absolute Auto 300 /uL (0-450); Eosinophils Percent Auto 4.3 % (2-4); Hematocrit 55.3 % (41-53); Hemoglobin 17.8 g/dL (13.5-17.5); Lymphocytes Absolute Auto 1300 /uL (1100-4500); Lymphocytes Percent Auto 16.6 % (25-40); Mean Corpuscular HGB Conc 32.2 % (30-36); Mean Corpuscular Hemoglobin 28.6 PG (26-34); Mean Corpuscular Volume 88.7 fL (80-100); Monocytes Absolute Auto 800 /uL (0-900); Neutrophils Absolute Auto 5300 /uL (1500-7000); Neutrophils Percent Auto 67.7 % (50-75); Platelet Count 433 X10^3/uL (150-400); Red Blood Cell Count 6.24 X10^6/uL (4.5-5.9); Red Cell Distribution Width 15.2 % (11.6-14.8); White Blood Cell Count 7.8 X10^3/uL (4.5-11.0)
[2019-07-26 20:12] LABS: INR 1.1 (0.9-1.3); Prothrombin Time 12.6 SECONDS (10.1-12.7)
[2019-07-26 20:13] LABS: Alanine Aminotransferase 201 IU/L (<50); Albumin 4.3 g/dL (3.5-5.0); Alkaline Phosphatase 112 U/L (38-126); Aspartate Aminotransferase 89 IU/L (17-59); BUN Creatinine Ratio 18.9 (6-22); Blood Urea Nitrogen 20 mg/dL (9-20); Calcium 9.5 mg/dL (8.4-10.2); Carbon Dioxide 32 mmol/L (22-32); Chloride 100 mmol/L (98-107); Estimated Glomerular Filt Rate > 60.0 mL/min (>60); Globulin 4.2 g/dL (1.7-4.1); Glucose 78 mg/dL (70-100); HEMOLYSIS 49 (0-50); Lipase 495 U/L (23-300); Potassium 4.3 mmol/L (3.4-5.1); Sodium 141 mmol/L (137-145); Total Protein 8.5 g/dL (6.3-8.2)
[2019-07-26 20:15] LABS: PTT Partial Thromboplastin Tim 36 SECONDS (26.4-36.2)
[2019-07-26 20:25] LABS: NT-proBNP (BNP-Adult 18+) 6970 pg/mL (<125); Troponin I < 0.012 ng/mL (0.01-0.034)
[2019-07-26] MEDS: MORPHINE 4 MG/ML INJ IV ×2 (20:27→21:08)
--- NOTE | 2019-07-26 20:30 | DI.US.S_ITS ---
PROCEDURE: US ABDOMEN LIMITED INDICATIONS: RIGHT UPPER QUADRANT PAIN TECHNIQUE: Real-time scanning was performed of the abdominal and retroperitoneal organs, with image documentation. COMPARISON: [facility], , US ABDOMEN LIMITED, 07/20/2019, 11:04. FINDINGS: Liver: Liver is mildly enlarged and measures 18.1 cm in length. Normal liver parenchymal echotexture is seen. Gallbladder: 2 x 7 mm polyp is noted in nondependent portion of gallbladder wall. No significant gallbladder wall thickening or pericholecystic fluid. No sonographic Garibay's. Biliary ducts: Intrahepatic bile ducts are non-dilated. Extrahepatic bile duct caliber measures 4.4 mm. Normal is 6-7 mm or less in diameter, or 10 mm or less post-cholecystectomy. Miscellaneous: No free abdominal fluid. IMPRESSION: 1. Tiny gallbladder polyp unchanged from prior study. No significant gallbladder wall thickening is seen on the current study. No sonographic Garibay's sign. 2. Mild hepatomegaly. No discrete hepatic lesion. No biliary ductal dilatation. 3. No free fluid is seen on the current study. Dictated by: Nj Roman M.D. on 07/26/2019 at 21:22 Approved by: Nj Roman M.D. on 07/26/2019 at 21:25
[2019-07-26 20:43] LABS: D Dimer 657 ng/mL (<230)
--- NOTE | 2019-07-26 21:02 | DI.CT.S_ITS ---
PROCEDURE: CT ANGIO CHEST PE PROTOCOL INDICATIONS: Chest pain, shortness of breath TECHNIQUE: After the administration of intravenous contrast, 2 mm thick sections acquired from the pulmonary apices to the posterior costophrenic angles. 3-dimensional maximum intensity projection (MIP) coronal and sagittal reformats were then acquired through the thorax. For radiation dose reduction, the following was used: automated exposure control, adjustment of mA and/or kV according to patient size. COMPARISON: None. FINDINGS: Image quality: Excellent. Pulmonary arteries: Pulmonary arteries are normal in size, and demonstrate no intraluminal filling defects to suggest central pulmonary embolism. Lungs and pleura: 2.3 x 3.3 cm masslike consolidation adjacent to posterior lateral pleural of right lung base is seen series 5 image 238. Left lung is clear. No pleural effusions or pneumothorax. Central and peripheral airways are patent. Mediastinum: Heart size is normal, without pericardial effusion. Enlarged lymph nodes are seen scattered in mediastinum and bilateral hilar region measures up to 1.4 cm in short axis diameter in right hilar region and up to 1.5 cm in short axis diameter in subcarinal space. Thoracic aorta is normal in caliber and enhancement. Esophagus is normal in caliber, without hiatal hernia. Bones and chest wall: No suspicious bony lesions. Ribs and thoracic spine appear intact throughout. Thyroid gland is within normal limits. No axillary or supraclavicular adenopathy. Abdomen: Visualized upper abdominal solid organs appear normal in the early arterial phase of enhancement. IMPRESSION: 1. No evidence of pulmonary embolus. No thoracic aortic aneurysm. 2. Masslike consolidation in posterior lateral right lung base and may represent right lower lobe infiltrate. Followup until resolution is recommended to rule out malignant process. 3. Prominent mediastinal and hilar lymph nodes suggestive of reactive inflammatory lymphadenopathy. Dictated by: Nj Roman M.D. on 07/26/2019 at 21:47 Approved by: Nj Roman M.D. on 07/26/2019 at 21:51
[2019-07-26] MEDS: KETOROLAC 60 MG/2 ML VIAL 30 MG IV (21:43)
[2019-07-26 22:54] LABS: Troponin I < 0.012 ng/mL (0.01-0.034)
== END 2019-07-26 23:21 | disposition home or self-care (01) ==
PROVIDERS: Emergency Provider Emergency Medicine; PCP Internal Medicine
DX: R07.9 Chest pain, unspecified (principal); R10.11 Right upper quadrant pain; R06.02 Shortness of breath
CPT/HCPCS: 36415; 71045; 71275; 76705; 80053; 83690; 83880; 84484; 85025; 85379; 85610; 85730; 93005; 96374; 96375; 96376; 99285; J1885; J2270; Q9967

== ENCOUNTER → 2019-08-13 15:17 | Outpatient (CLI) | payer OTHER, SELFPAY ==
[2019-07-19 17:36] VITALS: BMI 27.2
[2019-08-13 15:53] LABS: Add Manual Diff / Slide Review NO; Basophils Absolute Auto 0 /uL (0-100); Basophils Percent Auto 0.5 % (0-2); Eosinophils Absolute Auto 700 /uL (0-450); Eosinophils Percent Auto 9.2 % (2-4); Hematocrit 51.2 % (41-53); Lymphocytes Absolute Auto 2100 /uL (1100-4500); Lymphocytes Percent Auto 28.3 % (25-40); Mean Corpuscular HGB Conc 33.2 % (30-36); Mean Corpuscular Hemoglobin 28.6 PG (26-34); Mean Corpuscular Volume 86.3 fL (80-100); Monocytes Absolute Auto 700 /uL (0-900); Neutrophils Absolute Auto 4000 /uL (1500-7000); Platelet Count 220 X10^3/uL (150-400); Red Blood Cell Count 5.94 X10^6/uL (4.5-5.9); Red Cell Distribution Width 15.2 % (11.6-14.8); White Blood Cell Count 7.5 X10^3/uL (4.5-11.0)
[2019-08-13 16:01] LABS: Alanine Aminotransferase 52 IU/L (<50); Albumin 4.5 g/dL (3.5-5.0); Albumin Globulin Ratio 1.2 (1.0-2.8); Alkaline Phosphatase 65 U/L (38-126); Aspartate Aminotransferase 36 IU/L (17-59); BUN Creatinine Ratio 11.9 (6-22); Bilirubin Total 1.4 mg/dL (0.2-1.3); Blood Urea Nitrogen 17 mg/dL (9-20); Calcium 9.9 mg/dL (8.4-10.2); Carbon Dioxide 25 mmol/L (22-32); Chloride 105 mmol/L (98-107); Estimated Glomerular Filt Rate 57.7 mL/min (>60); Globulin 3.7 g/dL (1.7-4.1); Glucose 103 mg/dL (70-100); HEMOLYSIS 17 (0-50); Potassium 4.8 mmol/L (3.4-5.1); Sodium 140 mmol/L (137-145); Total Protein 8.2 g/dL (6.3-8.2)
[2019-08-13 16:08] LABS: NT-proBNP (BNP-Adult 18+) 3390 pg/mL (<125)
[2019-08-14 16:52] LABS: Erythropoietin 4.3 mIU/mL (2.6-18.5)
== END ==
PROVIDERS: PCP Internal Medicine; Referring Provider Nurse Practitioner; Visit Provider Nurse Practitioner
DX: R79.89 Other specified abnormal findings of blood chemistry (principal); D58.2 Other hemoglobinopathies; R71.8 Other abnormality of red blood cells; I42.9 Cardiomyopathy, unspecified
CPT/HCPCS: 36415; 80053; 82668; 83880; 85025

== ENCOUNTER → 2020-01-12 11:44 | Outpatient (CLI) | payer OTHER, SELFPAY ==
[2019-07-19 17:36] VITALS: BMI 27.2
[2020-01-12 15:08] LABS: BUN Creatinine Ratio 11.4 (6-22); Blood Urea Nitrogen 12 mg/dL (9-20); Carbon Dioxide 27 mmol/L (22-32); Chloride 103 mmol/L (98-107); Estimated Glomerular Filt Rate > 60.0 mL/min (>60); Glucose 79 mg/dL (70-100); HEMOLYSIS < 15 (0-50); Potassium 4.1 mmol/L (3.4-5.1); Sodium 138 mmol/L (137-145)
== END ==
PROVIDERS: PCP Internal Medicine; Referring Provider Nurse Practitioner; Visit Provider Nurse Practitioner
DX: I42.9 Cardiomyopathy, unspecified (principal)
CPT/HCPCS: 36415; 80048

== ENCOUNTER → 2020-02-04 13:13 | Outpatient (CLI) | payer OTHER, SELFPAY ==
[2019-07-19 17:36] VITALS: BMI 27.2
[2020-02-04 14:22] LABS: Add Manual Diff / Slide Review NO; Basophils Absolute Auto 0 /uL (0-100); Basophils Percent Auto 0.5 % (0-2); Eosinophils Absolute Auto 300 /uL (0-450); Eosinophils Percent Auto 4.2 % (2-4); Hematocrit 46.5 % (41-53); Hemoglobin 15.8 g/dL (13.5-17.5); Lymphocytes Absolute Auto 2100 /uL (1100-4500); Lymphocytes Percent Auto 31.7 % (25-40); Mean Corpuscular HGB Conc 33.9 % (30-36); Mean Corpuscular Hemoglobin 31.8 PG (26-34); Mean Corpuscular Volume 93.9 fL (80-100); Monocytes Absolute Auto 200 /uL (0-900); Monocytes Percent Auto 3.8 % (3-14); Neutrophils Absolute Auto 3900 /uL (1500-7000); Neutrophils Percent Auto 59.8 % (50-75); Platelet Count 219 X10^3/uL (150-400); Red Blood Cell Count 4.95 X10^6/uL (4.5-5.9); Red Cell Distribution Width 12.4 % (11.6-14.8); White Blood Cell Count 6.5 X10^3/uL (4.5-11.0)
[2020-02-04 14:40] LABS: HEMOLYSIS < 15 (0-50); Iron 163 ug/dL (49-181)
[2020-02-04 14:51] LABS: Percent Iron Saturation 47 % (20-50); Total Iron Binding Capacity 344 ug/dL (261-462); Transferrin 273 mg/dL (206-381)
[2020-02-04 15:26] LABS: BUN Creatinine Ratio 15.7 (6-22); Blood Urea Nitrogen 17 mg/dL (9-20); Calcium 9.9 mg/dL (8.4-10.2); Carbon Dioxide 30 mmol/L (22-32); Chloride 101 mmol/L (98-107); Estimated Glomerular Filt Rate > 60.0 mL/min (>60); Glucose 124 mg/dL (70-100); HEMOLYSIS < 15 (0-50); Potassium 4.2 mmol/L (3.4-5.1); Sodium 137 mmol/L (137-145)
[2020-02-04 16:02] LABS: Ferritin 307 ng/mL (18-464)
== END ==
PROVIDERS: PCP Internal Medicine; Referring Provider Nurse Practitioner; Visit Provider Nurse Practitioner
DX: I42.8 Other cardiomyopathies (principal); Z51.81 Encounter for therapeutic drug level monitoring; Z79.899 Other long term (current) drug therapy
CPT/HCPCS: 36415; 80048; 82728; 83540; 83550; 85025

== ENCOUNTER → 2020-04-18 10:05 | Outpatient (CLI) | payer OTHER, SELFPAY ==
[2019-07-19 17:36] VITALS: BMI 27.2
[2020-04-18 10:56] LABS: Add Manual Diff / Slide Review NO; Basophils Absolute Auto 0 /uL (0-100); Basophils Percent Auto 0.8 % (0-2); Eosinophils Absolute Auto 300 /uL (0-450); Hematocrit 45.2 % (41-53); Lymphocytes Absolute Auto 2000 /uL (1100-4500); Lymphocytes Percent Auto 35.6 % (25-40); Mean Corpuscular HGB Conc 33.3 % (30-36); Mean Corpuscular Hemoglobin 30.6 PG (26-34); Mean Corpuscular Volume 92.1 fL (80-100); Monocytes Absolute Auto 500 /uL (0-900); Monocytes Percent Auto 9.6 % (3-14); Neutrophils Absolute Auto 2700 /uL (1500-7000); Platelet Count 223 X10^3/uL (150-400); White Blood Cell Count 5.6 X10^3/uL (4.5-11.0)
[2020-04-18 11:17] LABS: BUN Creatinine Ratio 17.5 (6-22); Blood Urea Nitrogen 18 mg/dL (9-20); Calcium 9.3 mg/dL (8.4-10.2); Carbon Dioxide 26 mmol/L (22-32); Chloride 103 mmol/L (98-107); Estimated Glomerular Filt Rate > 60.0 mL/min (>60); Glucose 97 mg/dL (70-100); HEMOLYSIS < 15 (0-50); Potassium 4.4 mmol/L (3.4-5.1); Sodium 136 mmol/L (137-145)
[2020-04-18 11:38] LABS: HEMOLYSIS < 15 (0-50); Iron 93 ug/dL (49-181)
[2020-04-18 11:50] LABS: Percent Iron Saturation 26 % (20-50); Total Iron Binding Capacity 357 ug/dL (261-462); Transferrin 278 mg/dL (206-381)
== END ==
PROVIDERS: PCP Internal Medicine; Referring Provider Nurse Practitioner; Visit Provider Nurse Practitioner
DX: Z51.81 Encounter for therapeutic drug level monitoring (principal); Z79.899 Other long term (current) drug therapy; I42.8 Other cardiomyopathies
CPT/HCPCS: 36415; 80048; 83540; 83550; 85025

== ENCOUNTER 2020-08-03 16:52 | Emergency (ER) | payer OTHER, SELFPAY ==
[2019-07-19 17:36] VITALS: BMI 27.2
[2020-08-03 16:57] VITALS: BP 121/80; PULSE 66; RESP 18; TEMP 36.8; O2SAT 99
--- NOTE | 2020-08-03 16:59 | DI.RAD.S_ITS ---
PROCEDURE: XR CHEST 1V INDICATIONS: chest pain TECHNIQUE: One view of the chest was acquired. COMPARISON: [facility], CR, XR CHEST 1V, 07/26/2019, 20:19. [facility], CR, XR CHEST 2V, 07/19/2019, 12:38. FINDINGS: Surgical changes and devices: None. Lungs and pleura: Lungs are clear. No pleural effusions or pneumothorax. Mediastinum: Mediastinal contours appear normal. Heart size is normal. Bones and chest wall: No suspicious bony lesions. Overlying soft tissues appear unremarkable. IMPRESSION: Normal for age, source of current chest pain symptoms is not seen. Dictated by: Lj Grijalva M.D. on 08/03/2020 at 17:13 Approved by: Lj Grijalva M.D. on 08/03/2020 at 17:21
[2020-08-03 17:06] VITALS: PULSE 74; RESP 20; O2SAT 96
[2020-08-03 17:11] LABS: Add Manual Diff / Slide Review NO; Basophils Absolute Auto 100 /uL (0-100); Basophils Percent Auto 0.9 % (0-2); Eosinophils Absolute Auto 400 /uL (0-450); Eosinophils Percent Auto 6.5 % (2-4); Hematocrit 45.7 % (41-53); Hemoglobin 15.4 g/dL (13.5-17.5); Lymphocytes Absolute Auto 2200 /uL (1100-4500); Lymphocytes Percent Auto 32.6 % (25-40); Mean Corpuscular HGB Conc 33.8 % (30-36); Mean Corpuscular Hemoglobin 30.6 PG (26-34); Mean Corpuscular Volume 90.6 fL (80-100); Monocytes Absolute Auto 700 /uL (0-900); Monocytes Percent Auto 10.5 % (3-14); Neutrophils Absolute Auto 3400 /uL (1500-7000); Neutrophils Percent Auto 49.5 % (50-75); Platelet Count 216 X10^3/uL (150-400); Red Blood Cell Count 5.05 X10^6/uL (4.5-5.9); Red Cell Distribution Width 13.4 % (11.6-14.8); White Blood Cell Count 6.8 X10^3/uL (4.5-11.0)
--- NOTE | 2020-08-03 17:23 | ED.CHESTPAIN ---
HPI - Chest Pain General Chief Complaint: Chest Pain Stated Complaint: States heart problems Time Seen by Provider: 08/03/20 17:23 Source: patient Mode of arrival: Ambulatory History of Present Illness HPI narrative: 30-year-old gentleman with a history of alcohol use disorder hospital admission a year ago with alcoholic cardiomyopathy and diastolic congestive heart failure with a severely dilated left ventricle and ejection fraction estimate at that time of 10-15%. He continues to drink for 7 days then work for 7 days. He states that he is not drinking as much as he had before but still drinks beer regularly but ?not like a lot?. He describes decreased overall energy, a 10 lb weight increase over the last month, intermittent episodes of left-sided chest pain that does not seem to be exertional in nature, some difficulty with lying flat. He notes chronic diarrhea that continues on both the weeks where he is drinking in the weeks or he is working. He does have a barrel bridge assembler at [facility] and last saw them about 5 months ago. He has not had a repeat echocardiogram after that done in June of 2019. His primary care physician retired and he was meeting his new physician today explaining symptoms above and was directed to the emergency room for further evaluation by his new primary care physician. Current medications include Lasix 40 mg daily, lisinopril 5 mg, metoprolol succinate XL 200 mg daily, spironolactone 25 mg daily and looks like his primary barrel bridge assembler is Dr. Menon Related Data Previous Rx's Medication Instructions Recorded carvedilol [Coreg] 3.125 mg PO BID #60 tab 07/23/19 digoxin 0.125 mg PO DAILY@1700 #30 tab 07/23/19 furosemide 40 mg PO DAILY #30 tab 07/23/19 lisinopril 5 mg PO DAILY #30 tab 07/23/19 spironolactone 25 mg PO DAILY #30 tab 07/23/19 Allergies Allergy/AdvReac Type Severity Reaction Status Date / Time No Known Drug Allergies Allergy Verified 07/19/19 12:36 Review of Systems Review of Systems Narrative: No fevers, cough, focal neurologic symptoms, headaches and no specific abdominal pain Remainder of complete review of systems is otherwise unremarkable except for that included in the HPI. Patient History Medical History Alcohol use disorder Alcoholic cardiomyopathy Heart failure Hypertension Liver disease Pancreatitis Surgical History No pertinent past surgical history Social History details: Currently going through divorce number of children: 3 household members: children lives independently: Yes caregiver/support person: No occupational status: employed current occupational exposures/hazards: No Smoking Status: Current every day smoker alcohol intake: former Smoking Status: Current every day smoker alcohol intake frequency: 3 or more drinks per day Substance Use Type: does not use Exam Narrative Exam Narrative: General: Mild chronically ill-appearing but in no acute distress. Able to give a complete and coherent history. Well-nourished well-developed HEENT: Moist mucous membranes, normal sclera with reactive pupils, Neck: No JVD, supple Respiratory: Lungs are clear to auscultation, no wheezing no rales no rhonchi. Full and symmetrical air movement Cardiac: Regular rate and rhythm, no S3, no murmurs no bruits Abdomen: Soft, nontender, good bowel tones, no flank pain Skin: Warm and dry, no rashes Neurologic: Grossly neurologically intact with no obvious asymmetries or abnormalities Extremities: No trauma, well perfused, 1+ bilateral edema Psych: Cooperative, appropriate insight and affect Initial Vital Signs Initial Vital Signs: Vital Signs Temperature 98.2 F 08/03/20 16:57 Pulse Rate 66 08/03/20 16:57 Respiratory Rate 18 08/03/20 16:57 Blood Pressure 121/80 08/03/20 16:57 Pulse Oximetry 99 08/03/20 16:57 Course Orders Ordered: ED Orders 08/03/20 16:59 XR chest 1V Stat EKG-12 Lead Stat 08/03/20 17:00 Complete Blood Count AUTO DIFF Stat Comprehensive Metabolic Panel Stat Lipase Stat NT-proBNP (BNP-Adult 18+) Stat Partial Thromboplastin Time Stat Prothrombin Time INR Stat Troponin & CK Cardiac Panel Stat Vital Signs Vital signs: Vital Signs - 8 hr 08/03/20 16:57 08/03/20 17:06 Temperature 98.2 F Pulse Rate 66 74 Respiratory Rate 18 20 Blood Pressure 121/80 Pulse Oximetry 99 96 MDM - Chest Pain Medical Records Data Attestation: I reviewed the patient's medical records. Lab Data Attestation: I reviewed the patient's lab results. Result diagrams: 08/03/20 17:00 08/03/20 17:00 Labs: Lab Results 08/03/20 08/03/20 08/03/20 Range/Units 17:00 17:00 17:00 WBC 6.8 (4.5-11.0) X10^3/uL RBC 5.05 (4.5-5.9) X10^6/uL Hgb 15.4 (13.5-17.5) g/dL Hct 45.7 (41-53) % MCV 90.6 (80-100) fL MCH 30.6 (26-34) PG MCHC 33.8 (30-36) % RDW 13.4 (11.6-14.8) % Plt Count 216 (150-400) X10^3/uL Neut % (Auto) 49.5 L (50-75) % Lymph % (Auto) 32.6 (25-40) % [place] % (Auto) 10.5 (3-14) % Eos % (Auto) 6.5 H (2-4) % Baso % (Auto) 0.9 (0-2) % Neut # (Auto) 3400 (1870-9691) /uL Lymph # (Auto) 2200 (4354-3205) /uL [place] # (Auto) 700 (0-900) /uL Eos # (Auto) 400 (0-450) /uL Baso # (Auto) 100 (0-100) /uL PT 10.6 (10.1-12.7) SECONDS INR 0.9 (0.9-1.3) APTT 33 (26.4-36.2) SECONDS Sodium 139 (137-145) mmol/L Potassium 4.2 (3.4-5.1) mmol/L Chloride 104 (98-107) mmol/L Carbon Dioxide 24 (22-32) mmol/L BUN 22 H (9-20) mg/dL Creatinine 1.19 (0.66-1.25) mg/dL Estimated GFR > 60.0 (>60) mL/min BUN/Creatinine Ratio 18.5 (6-22) Glucose 99 (70-100) mg/dL Calcium 9.5 (8.4-10.2) mg/dL Total Bilirubin 0.9 (0.2-1.3) mg/dL AST 49 (17-59) IU/L ALT 79 H (<50) IU/L Alkaline Phosphatase 44 (38-126) U/L Total Creatine Kinase 193 H (55-170) U/L CK-MB (CK-2) 0.96 (<2.37) ng/mL CK-MB (CK-2) Rel Index 0.5 L (1.5-5.0) % Troponin I 0.013 (0.01-0.034) ng/mL NT-Pro-B Natriuret Pep (<125) pg/mL Total Protein 8.0 (6.3-8.2) g/dL Albumin 4.5 (3.5-5.0) g/dL Globulin 3.5 (1.7-4.1) g/dL Albumin/Globulin Ratio 1.3 (1.0-2.8) Lipase 183 (23-300) U/L 08/03/20 Range/Units 17:00 WBC (4.5-11.0) X10^3/uL RBC (4.5-5.9) X10^6/uL Hgb (13.5-17.5) g/dL Hct (41-53) % MCV (80-100) fL MCH (26-34) PG MCHC (30-36) % RDW (11.6-14.8) % Plt Count (150-400) X10^3/uL Neut % (Auto) (50-75) % Lymph % (Auto) (25-40) % [place] % (Auto) (3-14) % Eos % (Auto) (2-4) % Baso % (Auto) (0-2) % Neut # (Auto) (0126-2253) /uL Lymph # (Auto) (2820-5776) /uL [place] # (Auto) (0-900) /uL Eos # (Auto) (0-450) /uL Baso # (Auto) (0-100) /uL PT (10.1-12.7) SECONDS INR (0.9-1.3) APTT (26.4-36.2) SECONDS Sodium (137-145) mmol/L Potassium (3.4-5.1) mmol/L Chloride (98-107) mmol/L Carbon Dioxide (22-32) mmol/L BUN (9-20) mg/dL Creatinine (0.66-1.25) mg/dL Estimated GFR (>60) mL/min BUN/Creatinine Ratio (6-22) Glucose (70-100) mg/dL Calcium (8.4-10.2) mg/dL Total Bilirubin (0.2-1.3) mg/dL AST (17-59) IU/L ALT (<50) IU/L Alkaline Phosphatase (38-126) U/L Total Creatine Kinase (55-170) U/L CK-MB (CK-2) (<2.37) ng/mL CK-MB (CK-2) Rel Index (1.5-5.0) % Troponin I (0.01-0.034) ng/mL NT-Pro-B Natriuret Pep 1150 H (<125) pg/mL Total Protein (6.3-8.2) g/dL Albumin (3.5-5.0) g/dL Globulin (1.7-4.1) g/dL Albumin/Globulin Ratio (1.0-2.8) Lipase (23-300) U/L Imaging Data Chest x-ray: Radiologist's Impression: FINDINGS: Surgical changes and devices: None. Lungs and pleura: Lungs are clear. No pleural effusions or pneumothorax. Mediastinum: Mediastinal contours appear normal. Heart size is normal. Bones and chest wall: No suspicious bony lesions. Overlying soft tissues appear unremarkable. IMPRESSION: Normal for age, source of current chest pain symptoms is not seen. Dictated by: Lj Grijalva M.D. on 08/03/2020 at 17:13 ECG Data Attestation: I personally reviewed and interpreted this ECG as follows: Interpretation: Sinus rhythm at a rate of 71 Left bundle-branch block, left atrial enlargement, left ventricular hypertrophy No acute ischemic change Significantly abnormal EKG similar to prior EKGs from a year ago MDM Narrative Medical decision making narrative: 30-year-old gentleman with an alcoholic cardiomyopathy a year ago with significant issues on hospital admission an echocardiogram showing an ejection fraction at 10-15%. He was establishing care with his primary care physician today and noted some mild exertional dyspnea and left-sided chest pain symptoms and was asked come to the ER for further evaluation. No evidence of STEMI or acute coronary syndrome, no infection, no acute anemia or renal failure. Mildly elevated transaminase with no evidence of pancreatitis. No ascites. Mild congestive heart failure with minimal symptoms on physical exam and chest x-ray. He does not have significant cardiomegaly on chest x-ray. At this point will ask him to increase his Lasix slightly (he thinks he is currently taking 20 mg daily) and reschedule follow-up with his primary care physician as well as his barrel bridge assembler. It is probably time for a repeat echocardiogram to see if it is still as poor as it was when he was hospitalized. We had a long discussion regarding alcohol as a primary cause for his symptoms and strong recommendations to quit drinking completely. He felt that this was absolutely possible. Discharge Plan Departure Patient Disposition: Home Clinical Impression: Alcoholic cardiomyopathy Congestive heart failure Qualifiers: Heart failure type: unspecified Heart failure chronicity: chronic Qualified Code(s): I50.9 - Heart failure, unspecified Instructions: DI for Heart Failure Activity Restrictions/Additional Instructions: Thank you for coming in today I am not finding any significant acute changes that would require hospitalization today. Your lab work does suggest that you have a mild exacerbation of your heart failure with a small amount of fluid collecting in the lungs to explain the mild exertional shortness of breath at your experiencing. I would like you to increase your furosemide/Lasix by 20 mg. If you are currently taking 20 mg please increase to 40, if your currently on 40 please increase to 60. Please continue all of your other medications You do need to schedule another follow-up with your new primary care doctor. Please share the blood work and chest x-ray results from your workup today. You also should schedule another follow-up with Dr. Menon, your barrel bridge assembler at [facility]. It likely is time to reschedule another echocardiogram to see how your heart has healed. At this point, alcohol has clearly proven toxic for your heart. You need to stop drinking altogether. I wish you the very best. Prescriptions: No Action carvedilol [Coreg] 3.125 mg Tablet 3.125 mg PO BID Qty: 60 RF: 0 spironolactone 25 mg Tablet 25 mg PO DAILY Qty: 30 RF: 0 lisinopril 5 mg Tablet 5 mg PO DAILY Qty: 30 RF: 0 digoxin 125 mcg (0.125 mg) Tablet 0.125 mg PO DAILY@1700 Qty: 30 RF: 0 furosemide 40 mg tablet 40 mg PO DAILY Qty: 30 RF: 0
[2020-08-03 17:24] LABS: INR 0.9 (0.9-1.3); Prothrombin Time 10.6 SECONDS (10.1-12.7)
[2020-08-03 17:27] LABS: PTT Partial Thromboplastin Tim 33 SECONDS (26.4-36.2)
[2020-08-03 17:30] VITALS: PULSE 68; RESP 19; O2SAT 97
[2020-08-03 17:31] LABS: Alanine Aminotransferase 79 IU/L (<50); Albumin 4.5 g/dL (3.5-5.0); Albumin Globulin Ratio 1.3 (1.0-2.8); Alkaline Phosphatase 44 U/L (38-126); Aspartate Aminotransferase 49 IU/L (17-59); BUN Creatinine Ratio 18.5 (6-22); Bilirubin Total 0.9 mg/dL (0.2-1.3); Blood Urea Nitrogen 22 mg/dL (9-20); Calcium 9.5 mg/dL (8.4-10.2); Carbon Dioxide 24 mmol/L (22-32); Chloride 104 mmol/L (98-107); Creatine Kinase 193 U/L (55-170); Estimated Glomerular Filt Rate > 60.0 mL/min (>60); Globulin 3.5 g/dL (1.7-4.1); Glucose 99 mg/dL (70-100); HEMOLYSIS 49 (0-50); Lipase 183 U/L (23-300); Potassium 4.2 mmol/L (3.4-5.1); Sodium 139 mmol/L (137-145)
[2020-08-03 17:42] LABS: Troponin I 0.013 ng/mL (0.01-0.034)
[2020-08-03 17:49] LABS: CKMB % Relative Index 0.5 % (1.5-5.0); Creatine Kinase MB 0.96 ng/mL (<2.37)
[2020-08-03 18:00] VITALS: PULSE 62; RESP 17; O2SAT 98
[2020-08-03 18:30] VITALS: PULSE 60; RESP 17; O2SAT 96
[2020-08-03 18:49] LABS: NT-proBNP (BNP-Adult 18+) 1150 pg/mL (<125)
[2020-08-03 19:00] VITALS: PULSE 62; O2SAT 98
== END 2020-08-03 19:10 | disposition home or self-care (01) ==
PROVIDERS: Emergency Medicine; Emergency Provider Emergency Medicine
DX: I42.6 Alcoholic cardiomyopathy (principal); I50.9 Heart failure, unspecified
CPT/HCPCS: 36415; 71045; 80053; 82550; 82553; 83690; 83880; 84484; 85025; 85610; 85730; 93005; 93010; 99284

== ENCOUNTER 2023-08-19 23:06 | Emergency (ER) | payer OTHER, SELFPAY ==
[2019-07-19 17:36] VITALS: BMI 27.2
[2023-08-19 23:14] VITALS: BP 175/111; PULSE 112; RESP 18; TEMP 35.9; O2SAT 97; BMI 30.2
--- NOTE | 2023-08-19 23:21 | DI.RAD.S_ITS ---
PROCEDURE: XR CHEST 1V INDICATIONS: DYSPNEA, L CHEST PAIN TECHNIQUE: One view of the chest was acquired. COMPARISON: [facility], CR, XR CHEST 1V, 08/03/2020, 17:02. [facility], CR, XR CHEST 1V, 07/26/2019, 20:19. FINDINGS: Surgical changes and devices: Pacemaker and dual chamber leads noted. Lungs and pleura: Lungs are clear. No pleural effusions or pneumothorax. Mediastinum: Mediastinal contours appear normal. Heart size is at the upper limits of normal. Bones and chest wall: No suspicious bony lesions. Overlying soft tissues appear unremarkable. IMPRESSION: No definite acute cardiopulmonary abnormality is seen. Dual chamber pacemaking device positioning appears normal. Dictated by: Lj Grijalva M.D. on 08/19/2023 at 23:58 Approved by: Lj Grijalva M.D. on 08/19/2023 at 23:59
--- NOTE | 2023-08-19 23:24 | ED_ITS ---
HPI - Chest Pain General Chief Complaint: Chest Pain Stated Complaint: heart issues Time Seen by Provider: 08/19/23 23:15 Source: patient Mode of arrival: Ambulatory History of Present Illness HPI narrative: 33-year-old male with history of alcohol-induced cardiomyopathy, AICD in place presents by private vehicle from home for several days of shortness of breath when lying down as well as left-sided chest discomfort that patient describes as ?my heart is pounding?. Patient states that he [facility] to [facility], however his insurance changed and he was not seen a follow up clerk or other primary doctor in at least 1 year. Patient states that prior to his insurance changing his doctor told him that he could stop all of his medications, and could restart them if he developed any further symptoms. Patient states that he is recovering from a prolonged bout of pneumonia, but is off of antibiotics. Related Data Previous Rx's Medication Instructions Recorded carvedilol 3.125 mg tablet (Coreg) 3.125 mg PO BID #60 tabs 07/23/19 digoxin 125 mcg (0.125 mg) tablet 0.125 mg PO DAILY@1700 #30 tabs 07/23/19 furosemide 40 mg tablet 40 mg PO DAILY #30 tabs 07/23/19 lisinopril 5 mg tablet 5 mg PO DAILY #30 tabs 07/23/19 spironolactone 25 mg tablet 25 mg PO DAILY #30 tabs 07/23/19 furosemide 40 mg tablet 40 mg PO DAILY #30 tabs 08/20/23 lisinopril 5 mg tablet 5 mg PO DAILY #30 tabs 08/20/23 metoprolol succinate 100 mg 100 mg PO DAILY #30 tabs 08/20/23 tablet,extended release 24 hr spironolactone 25 mg tablet 25 mg PO DAILY #30 tabs 08/20/23 Allergies Allergy/AdvReac Type Severity Reaction Status Date / Time No Known Drug Allergies Allergy Verified 07/19/19 12:36 Review of Systems Review of Systems Narrative: See HPI Patient History Medical History Pacemaker Alcoholic cardiomyopathy Alcohol use disorder Liver disease Heart failure Hypertension Pancreatitis Social History details: Currently going through divorce number of children: 3 household members: children lives independently: Yes caregiver/support person: No occupational status: employed current occupational exposures/hazards: No Smoking Status: Current every day smoker alcohol intake: former Smoking Status: Current every day smoker alcohol intake frequency: 3 or more drinks per day Substance Use Type: does not use Exam Initial Vital Signs Initial Vital Signs: Vital Signs Temperature 96.6 F L 08/19/23 23:14 Pulse Rate 112 H 08/19/23 23:14 Respiratory Rate 18 08/19/23 23:14 Blood Pressure 175/111 H 08/19/23 23:14 Pulse Oximetry 97 08/19/23 23:14 Oxygen Delivery Method Room Air 08/19/23 23:14 Const: Awake, alert, no acute distress, nontoxic appearing Cardiac: Tachycardia, regular rhythm RESP: unlabored, clear bilaterally, no wheezing GI: Soft, nontender, nondistended, no rebound, no guarding MSK: Atraumatic, full range of motion, pulses equal Skin: Warm, Dry, intact, no rashes Neuro: AO x3, CN II-XII grossly intact, moves all extremities Course Orders Ordered: ED Orders 08/19/23 23:21 Chest [XR chest 1V] Stat 08/19/23 23:31 BNP [NT-proBNP (BNP-Adult 18+)] Stat CBC Auto Diff [Complete Blood Count AUTO DIFF] Stat CMP [Comprehensive Metabolic Panel] Stat PT [Prothrombin Time INR] Stat Troponin & CK Cardiac Panel Stat 08/19/23 23:42 Respiratory Panel (Film Array) Stat 08/20/23 00:12 Ethanol (ETOH) Stat EKG-12 Lead Stat 08/20/23 01:25 Trop I [Troponin I] Stat Discontinued Medications Heparin Sodium (Porcine) (Heparin 5,000 Unit/Ml Vial) 5,000 unit IV NOW ONE Stop: 08/20/23 02:16 Heparin Sodium/Dextrose (Heparin Drip) 25,000 unit in 500 mls @ 23.623 mls/hr IV CONT ALBERTO; Protocol Vital Signs Vital signs: Vital Signs - 8 hr 08/19/23 23:14 08/19/23 23:30 08/19/23 23:32 Temperature 96.6 F L Pulse Rate 112 H 103 H 100 H Respiratory Rate 18 21 23 Blood Pressure 175/111 H Pulse Oximetry 97 94 95 Oxygen Delivery Method Room Air Room Air Room Air 08/19/23 23:32 08/20/23 00:00 08/20/23 00:00 Temperature Pulse Rate 101 H Respiratory Rate 21 Blood Pressure 135/95 H 146/106 H Pulse Oximetry 95 Oxygen Delivery Method Room Air 08/20/23 00:30 08/20/23 00:30 08/20/23 01:00 Temperature Pulse Rate 100 H 100 H Respiratory Rate 23 22 Blood Pressure 154/107 H Pulse Oximetry 95 95 Oxygen Delivery Method Room Air Room Air 08/20/23 01:00 08/20/23 01:30 08/20/23 01:30 Temperature Pulse Rate 100 H Respiratory Rate 21 Blood Pressure 154/102 H 158/108 H Pulse Oximetry 93 Oxygen Delivery Method Room Air 08/20/23 02:00 08/20/23 02:00 Temperature Pulse Rate 101 H Respiratory Rate 19 Blood Pressure 160/102 H Pulse Oximetry 94 Oxygen Delivery Method Room Air MDM - Chest Pain Differential Diagnosis Differential diagnosis: Likely fracture of rib, pneumothorax and stable angina Lab Data 08/19/23 23:31 08/19/23 23:31 Labs: Lab Results 08/19/23 08/19/23 08/20/23 Range/Units 23:31 23:42 01:25 WBC 8.7 (4.5-11.0) X10^3/uL RBC 5.18 (4.5-5.9) X10^6/uL Hgb 15.5 (13.5-17.5) g/dL Hct 45.6 (41-53) % MCV 88.2 (80-100) fL MCH 29.9 (26-34) PG MCHC 33.9 (30-36) % RDW 14.5 (11.6-14.8) % Plt Count 230 (150-400) X10^3/uL Neut % (Auto) 64.2 (50-75) % Lymph % (Auto) 23.9 L (25-40) % [place] % (Auto) 9.9 (3-14) % Eos % (Auto) 1.6 L (2-4) % Baso % (Auto) 0.4 (0-2) % Neut # (Auto) 5600 (7267-4379) /uL Lymph # (Auto) 2100 (7426-1003) /uL [place] # (Auto) 900 (0-900) /uL Eos # (Auto) 100 (0-450) /uL Baso # (Auto) 0 (0-100) /uL PT 11.9 (9.4-12.5) SECONDS INR 1.0 (0.9-1.3) Sodium 138 (137-145) mmol/L Potassium 3.9 (3.4-5.1) mmol/L Chloride 108 H (98-107) mmol/L Carbon Dioxide 25 (22-32) mmol/L BUN 13 (9-20) mg/dL Creatinine 1.03 (0.66-1.25) mg/dL Estimated GFR > 60 (>60) mL/min BUN/Creatinine Ratio 12.6 (6-22) Glucose 98 (70-100) mg/dL Calcium 9.3 (8.4-10.2) mg/dL Total Bilirubin 1.4 H (0.2-1.3) mg/dL AST 43 (17-59) IU/L ALT 54 H (<50) IU/L Alkaline Phosphatase 81 (38-126) U/L Total Creatine Kinase 189 H (55-170) U/L Troponin I 0.119 H 0.131 H* (0.01-0.034) ng/mL NT-Pro-B Natriuret Pep 3370 H (<125) pg/mL Total Protein 7.6 (6.3-8.2) g/dL Albumin 4.4 (3.5-5.0) g/dL Globulin 3.2 (1.7-4.1) g/dL Albumin/Globulin Ratio 1.4 (1.0-2.8) Ethyl Alcohol < 10 ( - 10) mg/dL Chlamy pneumoniae PCR Not detected (Not Detect) Adenovirus (PCR) Not detected (Not Detect) B.parapertussis DNA PCR Not detected (Not Detecte) Coronavirus OC43 (PCR) Not detected (Not Detect) Coronavirus HKU1 (PCR) Not detected (Not Detect) Coronavirus 229E (PCR) Not detected (Not Detect) SARS-CoV-2 (PCR) Not detected (Not Detecte) Coronavirus NL63 (PCR) Not detected (Not Detect) Human Metapneumovir PCR Not detected (Not Detect) Influenza Type A (PCR) Not detected (Not Detect) Influenza Type B (PCR) Not detected (Not Detect) M. pneumoniae (PCR) Not detected (Not Detect) Parainfluenza 1 (PCR) Not detected (Not Detect) Parainfluenza 2 (PCR) Not detected (Not Detect) Parainfluenza 3 (PCR) Not detected (Not Detect) Parainfluenza 4 (PCR) Not detected (Not Detect) RSV (PCR) Not detected (Not Detect) Entero/Rhino (PCR) Not detected (Not Detect) Imaging Data Chest x-ray: Radiologist's Impression: PROCEDURE: XR CHEST 1V INDICATIONS: DYSPNEA, L CHEST PAIN TECHNIQUE: One view of the chest was acquired. COMPARISON: [facility], CR, XR CHEST 1V, 08/03/2020, 17:02. [facility], CR, XR CHEST 1V, 07/26/2019, 20:19. FINDINGS: Surgical changes and devices: Pacemaker and dual chamber leads noted. Lungs and pleura: Lungs are clear. No pleural effusions or pneumothorax. Mediastinum: Mediastinal contours appear normal. Heart size is at the upper limits of normal. Bones and chest wall: No suspicious bony lesions. Overlying soft tissues appear unremarkable. IMPRESSION: No definite acute cardiopulmonary abnormality is seen. Dual chamber pacemaking device positioning appears normal. Dictated by: Lj Grijalva M.D. on 08/19/2023 at 23:58 Approved by: Lj Grijalva M.D. on 08/19/2023 at 23:59 ECG Data Interpretation: atrial sensed, ventricular paced rhythm 102 BPM. LBBB (known to patient), no Sgarbossa criteria MDM Narrative Medical decision making narrative: Well-appearing patient with shortness of breath and the sensation that his heart is pounding. Patient states that his shortness of breath is only when he lays down flat, he was able to walk ?indefinitely? without getting winded. Lungs are clear to auscultation bilaterally, saturating well on room air. Patient's EKG shows left bundle-branch block, which is known to the patient, no recent priors for comparison. Patient states that he underwent angiography when he was initially diagnosed with cardiomyopathy approximately 4 years ago, but he does not know the results. Laboratory work reviewed. WBC count 8.7, hemoglobin 15.5, platelets 230, sodium 138, potassium 3.9, creatinine 1.03, troponin 0.119, BNP 3370. Chest x-ray negative for edema or other acute findings. Patient is sleeping comfortably in bed, vital signs significant for tachycardia with a pulse of 100, which is what the patient has been at since he arrived to the emergency department. We will order 2 hour troponin and then we will reassess. Repeat troponin increased to 0.131. Discussed patient's case with on-call Cardiology Dr. Foster. Patient's story does not make sense, it was not seem appropriate for patient to has been taken off of all evidence base medical therapy 1 year ago even if he had improvement in symptoms. With his recurrent chest pain and no recent cardiology evaluation or workup recommended transfer to facility with clinical lab scientist capabilities. Also recommended initiation of heparin. Lab, imaging findings, cardiology recommendations discussed with the patient at bedside. Patient stated that he did not want to be transferred at this time and is adamant that he wants to go home. He states that he will call a follow up clerk 1st thing tomorrow morning for a follow up appointment. I advised that the patient was at risk of heart attack, stroke, if he were to leave without completing his evaluation. Patient stated that he understood these risks and would return to the emergency department if his symptoms worsened or did not improve. As a compromise I offered to restart the patient's previous cardiac medications, which the patient agreed to. Per chart review 1 year prior patient was on furosemide, lisinopril, metoprolol, and spironolactone. Refills of the medication sent to patient's pharmacy of choice. Strict ED return precautions discussed at bedside. Discharge Plan Departure Patient Disposition: Left Against Medical Advice Clinical Impression: Chest pain, Elevated troponin, Left against medical advice Instructions: DI for Chest Pain Activity Restrictions/Additional Instructions: Your EKG showed left bundle branch block, your laboratory work shows that you have some stress on your heart, leading to an increase in your heart enzymes. Cardiology recommended transfer to facility with clinical lab scientist services, however you were are electing to leave against medical advice. If you notice any worsening at all in your symptoms please return immediately to the emergency department. In the interim I will restart your previous heart medications. Prescriptions: New metoprolol succinate 100 mg tablet extended release 24 hr 100 mg PO DAILY Qty: 30 0RF furosemide 40 mg tablet 40 mg PO DAILY Qty: 30 0RF lisinopril 5 mg tablet 5 mg PO DAILY Qty: 30 0RF spironolactone 25 mg tablet 25 mg PO DAILY Qty: 30 0RF No Action carvedilol [Coreg] 3.125 mg Tablet 3.125 mg PO BID Qty: 60 0RF spironolactone 25 mg Tablet 25 mg PO DAILY Qty: 30 0RF lisinopril 5 mg Tablet 5 mg PO DAILY Qty: 30 0RF digoxin 125 mcg (0.125 mg) Tablet 0.125 mg PO DAILY@1700 Qty: 30 0RF furosemide 40 mg tablet 40 mg PO DAILY Qty: 30 0RF Referrals: Dalai Menon MD [Physician] - Stand Alone Forms: Patient Portal/API, Against Medical Advice
[2023-08-19 23:30] VITALS: PULSE 103; RESP 21; O2SAT 94
[2023-08-19 23:32] VITALS: BP 135/95; PULSE 100; RESP 23; O2SAT 95
[2023-08-19 23:42] LABS: Add Manual Diff / Slide Review NO; Basophils Absolute Auto 0 /uL (0-100); Basophils Percent Auto 0.4 % (0-2); Eosinophils Absolute Auto 100 /uL (0-450); Eosinophils Percent Auto 1.6 % (2-4); Hematocrit 45.6 % (41-53); Hemoglobin 15.5 g/dL (13.5-17.5); Lymphocytes Absolute Auto 2100 /uL (1100-4500); Lymphocytes Percent Auto 23.9 % (25-40); Mean Corpuscular HGB Conc 33.9 % (30-36); Mean Corpuscular Hemoglobin 29.9 PG (26-34); Mean Corpuscular Volume 88.2 fL (80-100); Monocytes Absolute Auto 900 /uL (0-900); Monocytes Percent Auto 9.9 % (3-14); Neutrophils Absolute Auto 5600 /uL (1500-7000); Neutrophils Percent Auto 64.2 % (50-75); Platelet Count 230 X10^3/uL (150-400); Red Blood Cell Count 5.18 X10^6/uL (4.5-5.9); Red Cell Distribution Width 14.5 % (11.6-14.8); White Blood Cell Count 8.7 X10^3/uL (4.5-11.0)
[2023-08-19 23:50] LABS: Prothrombin Time 11.9 SECONDS (9.4-12.5)
[2023-08-19 23:54] LABS: Alanine Aminotransferase 54 IU/L (<50); Albumin 4.4 g/dL (3.5-5.0); Albumin Globulin Ratio 1.4 (1.0-2.8); Alkaline Phosphatase 81 U/L (38-126); Aspartate Aminotransferase 43 IU/L (17-59); BUN Creatinine Ratio 12.6 (6-22); Bilirubin Total 1.4 mg/dL (0.2-1.3); Blood Urea Nitrogen 13 mg/dL (9-20); Calcium 9.3 mg/dL (8.4-10.2); Carbon Dioxide 25 mmol/L (22-32); Chloride 108 mmol/L (98-107); Creatine Kinase 189 U/L (55-170); Estimated Glomerular Filt Rate > 60 mL/min (>60); Globulin 3.2 g/dL (1.7-4.1); Glucose 98 mg/dL (70-100); HEMOLYSIS < 15 (0-50); Potassium 3.9 mmol/L (3.4-5.1); Sodium 138 mmol/L (137-145); Total Protein 7.6 g/dL (6.3-8.2)
[2023-08-20] VITALS: BP 146/106; PULSE 101; RESP 21; O2SAT 95
[2023-08-20 00:03] LABS: NT-proBNP (BNP-Adult 18+) 3370 pg/mL (<125)
[2023-08-20 00:06] LABS: Troponin I 0.119 ng/mL (0.01-0.034)
[2023-08-20 00:26] LABS: Ethanol (ETOH) < 10 mg/dL
[2023-08-20 00:30] VITALS: BP 154/107; PULSE 100; RESP 23; O2SAT 95
[2023-08-20 01:00] VITALS: BP 154/102; PULSE 100; RESP 22; O2SAT 95
[2023-08-20 01:09] LABS: Adenovirus Not Detected (Not Detect); B. parapertussis Not Detected (Not Detecte); Bordetella pertussis Not Detected (Not Detect); Chlamydophila pneumoniae Not Detected (Not Detect); Coronavirus 229E Not Detected (Not Detect); Coronavirus HKU1 Not Detected (Not Detect); Coronavirus NL 63 Not Detected (Not Detect); Coronavirus OC43 Not Detected (Not Detect); Human Metapneumovirus Not Detected (Not Detect); Human Rhinovirus/Enterovirus Not Detected (Not Detect); Influenza A Not Detected (Not Detect); Influenza B Not Detected (Not Detect); Mycoplasma pneumoniae Not Detected (Not Detect); Parainfluenza Virus 1 Not Detected (Not Detect); Parainfluenza Virus 2 Not Detected (Not Detect); Parainfluenza Virus 3 Not Detected (Not Detect); Parainfluenza Virus 4 Not Detected (Not Detect); Respiratory Syncytial Virus Not Detected (Not Detect); SARS- CoV-2 Not Detected (Not Detecte)
[2023-08-20 01:30] VITALS: BP 158/108; PULSE 100; RESP 21; O2SAT 93
[2023-08-20 01:58] LABS: Troponin I 0.131 ng/mL (0.01-0.034)
[2023-08-20 02:00] VITALS: BP 160/102; PULSE 101; RESP 19; O2SAT 94
== END 2023-08-20 02:32 | disposition left against medical advice (07) ==
PROVIDERS: Emergency Provider Emergency Medicine
DX: R07.9 Chest pain, unspecified (principal); R79.89 Other specified abnormal findings of blood chemistry; R06.02 Shortness of breath; I44.7 Left bundle-branch block, unspecified; Z53.29 Procedure and treatment not carried out because of patient's decision for other reasons
CPT/HCPCS: 36415; 71045; 80053; 80320; 82550; 83880; 84484; 85025; 85610; 87633; 93005; 99283; 99284